=== PATIENT | male | born 1955 | race Caucasian/White ===

== ENCOUNTER 2025-02-13 20:57 | Inpatient (IN) | payer MEDICARE, SELFPAY ==
[2025-02-13 16:18] VITALS: BP 171/110
[2025-02-13 16:50] LABS: Hematocrit 45.4 % (39.0-52.0); Hemoglobin 15.4 g/dL (13.0-18.0); Mean Corp Hgb Conc. 33.9 g/dL (33.0-37.0); Mean Corpuscular Volume 90.6 fL (80.0-94.0); Nucleated Red Blood Cells % 0 % (-); Platelet Count 193 10^3/uL (130-400); Red Cell Dist. Width 13.1 % (11.5-14.5)
[2025-02-13 17:17] LABS: ALT (SGPT) 53 U/L (0-50); AST (SGOT) 72 U/L (17-59); Albumin 3.7 g/dl (3.5-5.0); Alkaline Phosphatase 125 U/L (38-126); Blood Urea Nitrogen 21 mg/dl (9-20); Calcium 9.1 mg/dl (8.4-10.2); Carbon Dioxide 20 mmol/L (22-30); Chloride 109 mmol/L (98-107); Glucose 305 mg/dl (70-99); Potassium 3.7 mmol/L (3.5-5.1); Sodium 139 mmol/L (135-145); Total Protein 6.8 g/dl (6.3-8.2); eGFR > 60.00
--- NOTE | 2025-02-13 19:47 | ED.GENMED ---
History of Present Illness
General
Chief Complaint: Skin Problem
Source: patient
Exam Limitations: none
Time Seen by Provider: 02/13/25 18:39
Nursing documentation reviewed up to this point in time: agreed with
History of Present Illness
History of Present Illness:
Patient to ED [facility] complaint of pain, swelling, heavy discharge from LLE wounds. Fouls smelling. He states he noticed wounds approx 2 mos ago and hs been treating on own. He reports he washes his legs in shower a few times/week. He leaves the same
sock on between showers. He denies fever/chills. Brought to ED by spouse for eval.
Past History
Past History
ED Past Medical History: HTN and NIDDM
Review of Systems
Review of Systems
Allergies reviewed?: Yes
All Other Systems: ROS reviewed and negative except as documented in HPI and ROS
Constitutional: Reports no symptoms
EENT: Reports no symptoms
Respiratory: Reports no symptoms
Cardiac: Reports no symptoms
ABD/GI: Reports no symptoms
: Reports no symptoms
Musculoskeletal: Reports other (Pain and swelling to LLE)
Skin: Reports other (3 large ulcerations LLE, foul smelling drainage. Erythema to LLE)
Neurological: Reports no symptoms
Psychiatric: Reports no symptoms
Phy Exam
General Physical Exam
General Presentation: moderate distress
General age: appears stated age
General Skin: warm and dry
General Habitus: normal
General Mental: alert
Cardiovascular Exam
Cardiovascular Exam: regular rate/rhythm
Pulmonary Exam
Pulmonary Exam: lungs clear and no respiratory distress
Neurological Exam
Neurological Exam: alert and oriented x3
Musculoskeletal Exam
Musculoskeletal Exam: full ROM, edema (+2BLE) and neuro vasc intact
Skin Exam
Skin Exam: other (3 large ulcerations present LLE. All three with foul smelling drainage. Cultures obtained. Redness and swelling to LLE)
Psychiatric Exam
Psychiatric Exam: normal mood/affect
Sepsis
Sepsis Screening
Sepsis Assessment: Sepsis Ruled Out
Sepsis Screen
Sepsis Screen: Sepsis Ruled Out
Date: 02/13/25
Time: 22:47
Course
Orders/Labs/Results
Orders:
Orders
02/13/25 Dinner
1800 calorie (15 carb) Diabetic
At Your Request: Full Participation
Does patient need a safe tray?: No
02/13/25 16:41
Complete Blood Count/With Diff Urgent
Comprehensive Metabolic Panel Urgent
Lactic Acid Routine
Blood Culture Urgent
ROSANNA Source: Blood/Venous
Specimen Description:
02/13/25 18:53
Foot, Left 3 View [CR Foot - Left Min 3 Views] Urgent
Comment:
Reason For Exam: cellulitis
Tib/Fib, Left 2 View [CR Leg Tibia/fibula Left 2 Vw] Urgent
Comment:
Reason For Exam: cellulitis
US Periph Venous LOWER Ext LT Urgent
Comment:
Reason For Exam: cellulitis
02/13/25 19:38
Wound Culture [Wound/Abscess/Other Culture] Urgent
ROSANNA Source: Leg
Specimen Description: Left
Date Specimen was Collected: 02/13/25
Time Specimen was Collected: 19:37
Comment: ag
Wound Culture [Wound/Abscess/Other Culture] Urgent
ROSANNA Source: Leg
Specimen Description: Left
Date Specimen was Collected: 02/13/25
Time Specimen was Collected: 19:38
Comment: calf
Wound Culture [Wound/Abscess/Other Culture] Urgent
ROSANNA Source: Leg
Specimen Description: Left
Date Specimen was Collected: 02/13/25
Time Specimen was Collected: 19:38
Comment: lateral lower leg
02/13/25 20:10
Vancomycin [Vancocin] 2,000 mg 0.9% Sodium Chloride 500 ml [Nss] 500 ml IV NOW
02/13/25 20:45
Admit/Transfer Patient As Directed
Co-Sign Provider:
Level of Care: Inpatient admission
Assign to:: Medical/Surgical
Physician / Group: Heydi
Diagnosis: cellulitis
Reason for Hospitalization: cellulitis
Expected length of stay greater than two midnights?: Yes
ELOS- Estimated Length of Stay in days: 2
I certify the patient meets the requirements for IP care: Yes
PRN Pain Medication Management As Directed
May give lesser potent ordered pain med per pt: Yes
preference::
Protocol:: Medication orders for pain may be administered in a
manner that supports deferring to patient preference
when the pt is:
- Requesting an ordered lesser potent pain medication.
Least to most potent pain medications are defined
as: acetaminophen < NSAID < tramadol < opioids
(morphine, oxycodone, hydromorphone).
- Requesting a lesser dose of the same medication IF
ORDERED.
- Requesting a less intrusive route of administration
if both routes are prescribed by the provider (PO <
IV).
02/13/25 20:46
Code Status As Directed
Resuscitation Status: Full Code
02/13/25 20:52
HydrALAZINE [Apresoline] 5 mg IV NOW STA
Oxycodone/Acetaminophen [Percocet 5/325] 1 tablet PO NOW STA
02/13/25 22:05
Acetaminophen [Tylenol] 650 mg PO Q4HPRN PRN
Bisacodyl [Dulcolax] 10 mg RECTAL [id number] PRN
Docusate W/Senna [Senokot-S] 1 tablet PO BIDPRN PRN
HYDROmorphone [Dilaudid] 0.5 mg IV Q4HPRN PRN
Insulin Glargine Lantus [Lantus] 10 units Subcutaneous Insulin Syringe [Syringe-Insulin] 0 unit SC HS
Ketorolac [Toradol] 10 mg IV Q6HPRN PRN
Ondansetron Injectable [Zofran] 4 mg IV Q6HPRN PRN
Oxycodone [Roxicodone] 5 mg PO Q4HPRN PRN
Polyethylene Glycol Powder [Miralax] 17 grams PO DAILYPRN PRN
VANCOMYCIN Pharmacy to Dose [VANCOCIN Pharmacy to Dose] 1 each Pharmacy To Prepare [Call Pharmacy To Prepare] 0 ml IV PER PROTOCOL
02/13/25 22:05
ECG [Electrocardiogram (*1)] Routine
Reason for Study: Hypertension, Benign
WOUND/OSTOMY CONSULT Routine
Reason for Consult: venostasis ulcers
Urinalysis Reflex To Culture Routine
Activity As Directed
Activity Level: With Assistance
Bedside Glucose Monitoring As Directed
Frequency: AC&HS
Vital Signs As Directed
Frequency: Per unit guidelines
Pulse Ox/spot Check [RESP] Routine
Quantity: 1
Rx Incentive Spirometry [RESP] Routine
Frequency: q1h while awake
DX Deep Vein Thrombosis Video Routine
02/14/25 06:00
Basic Metabolic Panel IN AM
Cardiovascular Evaluation IN AM
Complete Blood Count/No Diff IN AM
Hemoglobin A1c [Glycohemoglobin (HgbA1c)] IN AM
Magnesium IN AM
02/14/25 07:30
Insulin Aspart Corrective Low [Novolog Flexpen-Low Resistance] See Protocol SC AC
02/14/25 08:00
Aspirin Low Dose EC [Aspir Low (Enteric Coated)] 81 mg PO DAILY
Labetalol [Trandate] 100 mg PO BID
Lisinopril [Zestril] 5 mg PO DAILY
METFORMIN HCl [Glucophage] 500 mg PO BID@0800,1700
02/14/25 18:00
Enoxaparin Sodium [Lovenox] 40 mg SC QPM
Abnormal Lab Results
02/13/25
16:41
Absolute Monos (auto) 0.8 H 10^3/uL
(0.1-0.6)
Lymphocytes % 13.1 L %
(20.5-51.1)
Chloride 109 H mmol/L
(98-107)
Carbon Dioxide 20 L mmol/L
(22-30)
BUN 21 H mg/dl
(9-20)
Glucose 305 H mg/dl
(70-99)
AST 72 H U/L
(17-59)
ALT 53 H U/L
(0-50)
02/13/25 16:41
02/13/25 16:41
Vital Signs
Initial and Last Documented VS:
Initial Vital Signs
Pulse Resp BP Pulse Ox
102 20 171/110 96
02/13/25 16:18 02/13/25 16:18 02/13/25 16:18 02/13/25 16:18
Last Documented Vital Signs
Temp Pulse Resp BP Pulse Ox
99.5 F 108 18 155/100 96
02/13/25 22:15 02/13/25 22:15 02/13/25 22:15 02/13/25 22:15 02/13/25 22:15
*Pulse Oximetry
SaO2: 96
Oxygen Mode of Delivery: Room air
*Critical Care Note
Total Time (30-74mins, 75-104mins- exclusive of procedures): Not Applicable
Update Note
Update Note:
Patient to ED with complaint of pain to LLE. Reports swelling and increasing drainge to wounds on LLE> He is self treating 3 ulcerations on LLE. Cleans them with soap and water when he showers, covers with a sock. No fever/chills. Culture sent
of all 3 wounds. [facility] NIDDM. States he was not prescribed meds, treated with diet. He has not seen a provider in a few years however. He also has a history of HTN but stopped his meds 2 years ago when he retired. WIll admit to hospitalist for
cellulitis, infected nonhealing ulcers LLE. Blood and wound cultures are pending. He is afebrile. WBC normal.
ED Attending Note
-
Portions of this chart may have been created with voice recognition software.� Occasional wrong word or��sound alike� substitutions may have occurred due to the inherent limitations of voice recognition software.
Discharge Plan
Departure
Patient Disposition: Admit
Date of Disposition: 02/13/25
Time of Disposition: 19:57
Presentation/result/management discussed w/ accepting MD/DO: Hospitalist
Patient with high blood pressure during this ER visit?: No
Condition: Fair
Covid-19: Not Applicable
Discharge Problem:
Cellulitis of leg, Non-healing wound of left lower extremity
Interventions
Interventions:
*Risk Screen - Suicide Last Done: 02/13/25 19:52
*General Assessment Last Done: 02/13/25 19:52
*Neglect/Abuse Screening Last Done: 02/13/25 19:52
*ED- Fall Risk Assessment Last Done: 02/13/25 19:52
*Nursing Disposition Last Done: 02/13/25 22:01
ED-Skin Assessment Last Done: 02/13/25 19:52
Discharge Date and Time
Discharge Date/Time: 02/13/25 22:01
[2025-02-13 19:53] VITALS: BP 177/119; BMI 36.9
--- NOTE | 2025-02-13 20:29 | HPS.HSE ---
Family Physician
-
Family Physician: NOT KNOW UNKNOWN - PT DOES
Chief Complaint
-
Left lower extremity skin changes
History of Present Illness
This is a 69-year-old who endorses past medical history only of prior pulmonary embolism status post thrombolysis, states he has diet controlled elevated blood sugar but no diagnosis of diabetes presenting to the emergency department with worsening
lesions in the left lower extremity.
Patient stated to me that he has had bilateral lower extremity swelling intermittently for several years. Demonstrated that he started having cellulitis in his leg in 2020. Most recently he stated that he started having swelling about 6 weeks ago.
He reported onset of a saccular lesion in his lateral left lower extremity for several weeks. Then additional lesions developed in the anterior and posterior segments. He denies any injuries. He has been attempting to keep his leg elevated but
is now unable to do so due to the location of the lesion.
Patient stated that he has been taking her ibuprofen every 5 hours to control the pain and feels like this has also been controlling any kind of fever. He denies having chills. He has not had any nausea or vomiting.
In Emergency Department he was afebrile, hypertensive to 180/110, nontachycardic. White count was 8.8 hemoglobin and platelets were normal. Electrolytes showed a potassium of 3.7 but otherwise unremarkable. His glucose was elevated at 300.
X-ray of the tibia-fibula and foot shows no fracture. Did not see any foreign body. Obvious large ulcerations extending into the subcutaneous layer, and no gas noted.
Medical History
Past Medical History
Past Medical History: Reports Other
Additional Past Medical History:
History of pulmonary embolism status post thrombolysis and IVC filter, status post removal of filter
Diet controlled hyperglycemia
Hypertension
Loss to follow-up
Past Surgical History: Reports None
Social History
Tobacco: Non-smoker
Alcohol: Occasional
Drug: None
Personal: Partner
Living: With Family
Family History
Family History: Not pertinent
Allergies / Home Medications
Allergies reflects when Allergies were last updated in [facility].
Home Medications with original date entered in [facility]
Allergy/Medication List:
Allergies
Allergy/AdvReac Type Severity Reaction Status Date / Time
lactose Allergy lactose Verified 02/13/25 16:23
intolerant
Sulfa (Sulfonamide Allergy Unknown Verified 02/13/25 16:23
Antibiotics)
Home Medications
acetaminophen 325 mg tablet (Tylenol) 650 mg PO PRN PRN MILD PAIN 02/13/25
aspirin 81 mg tablet,delayed release 81 mg PO DAILY 02/13/25
magnesium oxide 200 mg PO DAILY 02/13/25
Review of Systems
-
History Source: Patient
Constitutional: Reports No Symptoms
EENT: Reports No Symptoms
Respiratory: Reports No Symptoms
Cardiac: Reports No Symptoms
Abdomen/GI: Reports No Symptoms
: Reports No Symptoms
Musculoskeletal: Reports No Symptoms
Skin: Reports Rash
Neurological: Reports No Symptoms
Endocrine: Reports No Symptoms
Hematologic/Lymphatic: Reports No Symptoms
Psych: Reports No Symptoms
Physical Exam
Vital Signs
Vital Signs
Pulse Resp BP Pulse Ox
95 18 177/119 95
02/13/25 19:53 02/13/25 19:53 02/13/25 19:53 02/13/25 19:53
Physical Exam
General: Well Developed, Well Nourished, Pain and Obese
HEENT: NormoCephalic, Moist mucous membranes and Atraumatic
Respiratory: Clear
Cardiac: S1/S2 and Regular Rhythm; No Murmur or Rub
GI: Soft, Non Tender and Normal Bowel Sounds; No Organomegaly
Rectal: Deferred by Provider
Musculoskeletal: No Clubbing, No Cyanosis, Edema, Left Lower Extremity and Edema, Right Lower Extremity
Skin: Rash (Well-circumscribed circular lesions in the left lower extremity x 3 largest self about 3 cm radius on the lateral aspect which is healing and 2 new ones on the anterior and posterior aspects. There is pedal edema erythema tenderness in
the left foot and leg)
Neuro: Nonfocal/grossly intact
Psych: Anxious
Laboratory Results
-
02/13/25 16:41
02/13/25 16:41
Laboratory Results
Lactic Acid 2.0 mmol/L (0.7-2.0) 02/13/25 16:41
Total Bilirubin 0.6 mg/dl (0.2-1.3) 02/13/25 16:41
AST 72 U/L (17-59) H 02/13/25 16:41
ALT 53 U/L (0-50) H 02/13/25 16:41
Alkaline Phosphatase 125 U/L (38-126) 02/13/25 16:41
Data Reviewed
-
Diagnostic Radiology: Image Personally Visualized and interpreted
Ultrasound: Image Personally Visualized and interpreted
Lab Data: Labs Reviewed by me
Old Records: Reviewed
Impression/Plan
-
IMPRESSION:
69-year-old presenting to the emergency department with worsening lower extremity swelling, erythema tenderness and pain. Found to have healing and nonhealing sacral ulcerations in the left lower extremity.
PLAN:
1. Cellulitis - Suspect cellulitis from either super-imposed wound infection. Large ulcerations with yellow base without current drainage. Suspect venostasis dermatitis, possible pyoderma. No deep tissue infection on xray. Possible vascular
insufficiency.
- admit to med/surg
- blood cultures
- vancomycin IV
- pain control
- wound care consult
- ID consultation
2. Hyperglycemia = untreated diabetes
- sliding scale insulin, lantus 10 hs
- metformin 500 bid
- check a1c, lipid panel
- check u/a
3. Uncontrolled HTN,
- given likely diabetes will start acei
- labetolol bid
- ecg, monitor for apnea
4. h/o PE s/p IVC filter and removal. Not on AC due to cost and non-compliance. Unclear if provoked PE in 2021
- LLE u/s showing non-occlusive thrombus of the within the femoral vein, popliteal vein and peroneal vein
- on aspirin, consider coumadin if agreeable and further hx can be obtained
- check coags, lovenox tx for now
DVT PPX - on lovenox tx
Code status - Full Code
[2025-02-13] MEDS: VANCOCIN 540 MG IV (20:57)
[2025-02-13] MEDS: PERCOCET 5/325 1 TABLET PO (20:57)
[2025-02-13] MEDS: APRESOLINE 5 MG IV (21:47)
[2025-02-13 22:15] VITALS: BP 155/100; BMI 35.9
[2025-02-13 22:17] LABS: Glucose - Point of Care 227 mg/dl (70-99)
--- NOTE | 2025-02-13 22:43 | PHA.VAN.IN ---
Assessment
- Assessment
Renal Function: Appears similar to baseline
AUC Dosing Plan
- Dosing Variables
Dosing Weight (kg): 101
Dosing CrCl (ml/min): 72
Vd coefficient (L/kg): 0.7
- Empiric Dosing
Initial / Loading Dose: 2000 mg given 02/13 @ 2000
Maintenance Regimen: 1250 mg Q12H 02/13 @ 0600
Estimated AUC (mcg*h/mL): 578
Estimated Peak (mcg*h/mL): 33
Estimated Trough (mcg/ml): 17
Estimated Half Life (H): 11
- Monitoring
No levels ordered at this time: Consider in next few days
Pharmacokinetics Vancomycin I
- -
Patient Age: 69
Patient Sex: Male
Vancomycin Day #: 1
Indication: Skin And Soft Tissue
Requesting Provider: Heydi
Pertinent Antimicrobial Allergies:
Sulfa allergy/unknown
Height / Weight:
Height 5 ft 6 in
Actual Weight 100.839 kg
Pertinent Past Medical History: BMI`36 Untreated DM
- Vital Signs / Lab Results
Temp Pulse Resp BP Pulse Ox
99.5 F 108 18 155/100 96
02/13/25 22:15 02/13/25 22:15 02/13/25 22:15 02/13/25 22:15 02/13/25 22:15
Lab Results - Hematology
02/13/25
16:41
WBC 8.8
Lab Results - Chemistry
02/13/25
16:41
BUN 21 H
Creatinine 1.1
Albumin 3.7
02/13/25
16:41
Lactic Acid 2.0
[2025-02-13] MEDS: ROXICODONE 5 MG PO (22:50)
[2025-02-13] MEDS: LOVENOX 100 MG SC (22:50)
[2025-02-13] MEDS: LANTUS 0.1 UNITS SC (22:51)
--- NOTE | 2025-02-14 00:05 | PTCARENOTE ---
Pt received from ED via stretcher. Ambulated to room independently w/o incident. AAOx3, pleasant. Admission and assessment completed. Oriented to surroundings and plan of care discussed. LLE w/multiple draining wounds, foul smelling. Wounds
dressed until evaluated by WOC RN. Instructed to elevate, verbalizes understanding. Medicated for pain (refer to MAR) + effect. #20 RH INT flushed and patent. Call brandi w/in reach.
[2025-02-14 00:09] VITALS: BP 162/104
[2025-02-14 00:27] LABS: INR 1.04; PT 14.0 Sec (11.4-14.6)
[2025-02-14] MEDS: TRANDATE 100 MG PO ×3 (00:31→21:03)
[2025-02-14 00:34] LABS: APTT 34.4 Sec (23.4-35.0)
[2025-02-14 03:09] VITALS: BP 133/84
[2025-02-14] MEDS: TYLENOL 650 MG PO (03:09)
[2025-02-14] MEDS: ROXICODONE 5 MG PO (03:09)
[2025-02-14 03:48] LABS: Urine Character Clear (Clear)
[2025-02-14 05:05] LABS: Urine Squamous Cell >30 /LPF (Few)
[2025-02-14] MEDS: VANCOCIN 275 MG IV ×2 (06:08→17:26)
[2025-02-14 06:45] LABS: Hematocrit 41.7 % (39.0-52.0); Hemoglobin 14.0 g/dL (13.0-18.0); Mean Corp Hgb Conc. 33.6 g/dL (33.0-37.0); Mean Corpuscular Volume 91.2 fL (80.0-94.0); Platelet Count 188 10^3/uL (130-400); Red Cell Dist. Width 13.2 % (11.5-14.5)
[2025-02-14 06:55] LABS: INR 1.07; PT 14.2 Sec (11.4-14.6)
[2025-02-14 06:56] LABS: APTT 33.3 Sec (23.4-35.0)
[2025-02-14 07:10] LABS: Blood Urea Nitrogen 18 mg/dl (9-20); Calcium 8.6 mg/dl (8.4-10.2); Carbon Dioxide 21 mmol/L (22-30); Chloride 109 mmol/L (98-107); Estimated Creatinine Clearance 79 ml/min; Glucose 274 mg/dl (70-99); HDL Cholesterol 20 mg/dl; LDL Cholesterol, Calculated 117 mg/dl; Magnesium 2.1 mg/dl (1.6-2.3); Potassium 3.7 mmol/L (3.5-5.1); Sodium 138 mmol/L (135-145); Very Low Density Lipoprotein 57 mg/dl (0-30); eGFR > 60.00
[2025-02-14 08:05] LABS: Glucose - Point of Care 224 mg/dl (70-99)
[2025-02-14 08:06] VITALS: BP 138/89
[2025-02-14 08:49] LABS: Glycohemoglobin (HgbA1c) 10.5 % (4.0-5.6)
[2025-02-14] MEDS: ZESTRIL 5 MG PO (08:58)
[2025-02-14] MEDS: NOVOLOG FLEXPEN-LOW RESISTANCE 2 UNITS SC (08:58)
[2025-02-14] MEDS: ASPIR LOW (ENTERIC COATED) 81 MG PO (08:58)
--- NOTE | 2025-02-14 10:31 | PHA.VAN.FU ---
Vancomycin Assessment / Plan
- Assessment
Renal Function: SCR Decreasing (1.1->1.0 (unknown baseline))
WBC's are: WNL
In the past 24 hrs, patient has been: Febrile (100.6 - 02/14 03:09)
- Dosing Plan
Continue: vancomycin 1250 mg q12h - first restrepo 02/14 0600 after 2gm load 02/13 2100
- Monitoring Plan
No level(s) ordered at this time: consider levels after 4th maint dose 02/15 1800 dose
- Follow Up
Pharmacy will continue to follow.
Vancomycin Follow UP
- -
Patient Age: 69
Patient Sex: Male
Vancomycin Day #: 2
Indication: Skin And Soft Tissue
Requesting Provider: Heydi
Pertinent Antimicrobial Allergies:
Sulfa allergy/unknown
Height / Weight:
Height 5 ft 6 in
Actual Weight 100.839 kg
Pertinent Past Medical History: BMI`36 Untreated DM
- Vital Signs / Lab Results
Temp Pulse Resp BP Pulse Ox
98.0 F 88 21 138/89 96
02/14/25 08:06 02/14/25 08:06 02/14/25 08:06 02/14/25 08:06 02/14/25 08:06
Lab Results - Hematology
02/13/25 02/14/25
16:41 06:16
WBC 8.8 10.0
Lab Results - Chemistry
02/13/25 02/14/25
16:41 06:16
BUN 21 H 18
Creatinine 1.1 1.0
Estimated Creat Clear 79
Albumin 3.7
02/13/25
16:41
Lactic Acid 2.0
Lab Results - Urine
02/14/25
03:15
Urine Nitrite (Reflex) Negative
Leukocyte Esterase Rfl Negative
Ur Squamous Epith Cells >30
--- NOTE | 2025-02-14 11:02 | WOUNDNOTE ---
LEFT LATERAL/POSTERIOR LOWER LEG
--- NOTE | 2025-02-14 11:03 | WOUNDNOTE ---
LEFT ANTERIOR LOWER LEG
--- NOTE | 2025-02-14 11:03 | WOUNDNOTE ---
LEFT LATERAL LOWER LEG
--- NOTE | 2025-02-14 11:04 | WOUNDNOTE ---
RIGHT LATERAL LOWER LEG
--- NOTE | 2025-02-14 11:05 | WOUNDNOTE ---
BILATERAL LOWER EXTREMITIES
--- NOTE | 2025-02-14 11:06 | WOUNDNOTE ---
LEFT LATERAL LOWER LEG
--- NOTE | 2025-02-14 11:07 | WOUNDNOTE ---
LEFT LATERAL/POSTERIOR LOWER LEG
--- NOTE | 2025-02-14 11:07 | WOUNDNOTE ---
LEFT LOWER LEG
--- NOTE | 2025-02-14 11:07 | WOUNDNOTE ---
LEFT GREAT TOE
--- NOTE | 2025-02-14 11:10 | W.PN.HOSP.TC ---
Today's Communication/Plan
-
see A/P
Assessment / Plan
Assessment / Plan
HPI: 69-year-old with past medical history only of prior pulmonary embolism status post thrombolysis, diet controlled elevated blood sugar but no diagnosis of diabetes; p/w worsening lesions in the left lower extremity.
Patient stated that he has had bilateral lower extremity swelling intermittently for several years. He started having cellulitis in his leg in 2020.
He reported onset of a saccular lesion in his lateral left lower extremity for several weeks. Then additional lesions developed in the anterior and posterior segments. He denies any injuries. He has been attempting to keep his leg elevated but is
now unable to do so due to the location of the lesion.
Patient stated that he has been taking ibuprofen every 5 hours to control the pain and feels like this has also been controlling fever. He denies having chills. He has not had any nausea or vomiting.
X-ray of the tibia-fibula and foot shows no fracture. Did not see any foreign body. Obvious large ulcerations extending into the subcutaneous layer, and no gas noted.
A/P
# LLE Cellulitis with Large ulcerations without drainage.
# Suspect venostasis dermatitis, possible pyoderma.
No deep tissue infection on xray, noted large ulcerations extending into the subcutaneous layer, no gas noted.
Follow blood culture, wound culture
Started IV vancomycin, cont
ID consult
wound care consult
pain control
# Hyperglycemia due to untreated diabetes
A1c 10.5%
started Lantus 10 units HS
Cont sliding scale insulin,
Pt declined metformin 500 bid due to previous severe GI S/E
# Hyperlipidemia
LDL 117
start Lipitor 40 mg
# Mild transaminitis, suspect reactive
Follow LFT
# Uncontrolled HTN
# HTN urgency
Started Labetalol 100 mg bid and lisinopril 5 mg
Monitor BP
# h/o PE s/p IVC filter and removal.
# LLE DVT
Not on AC due to cost/non-compliance. Unclear if provoked PE in 2019
LLE u/s showed non-occlusive thrombus of the within the femoral vein, popliteal vein and peroneal vein
on aspirin.
CM to check cost of Eliquis
Cont therapeutic Lovenox for now
DVT PPX - therapeutic Lovenox for now
Code status - Full Code
DW at bedside
total time spent 51 min
Anticipated Discharge: > 48 hours
Subjective/Interval History
-
Date of Service: February 14, 2025
Objective Data
-
Labs:
Laboratory Results
02/14/25 02/14/25
00:00 06:16
WBC 10.0
Hgb 14.0
Hct 41.7
Plt Count 188
PT 14.0 14.2
INR 1.04 1.07
APTT 34.4 33.3
Sodium 138
Potassium 3.7
Chloride 109 H
Carbon Dioxide 21 L
BUN 18
Creatinine 1.0
Glucose 274 H
Calcium 8.6
Vital Signs:
Vital Signs
Temp Pulse Resp BP Pulse Ox
36.7 C 88 21 138/89 96
02/14/25 08:06 02/14/25 08:06 02/14/25 08:06 02/14/25 08:06 02/14/25 08:06
I&O
02/13/25 02/14/25 02/15/25
06:59 06:59 06:59
Intake Total 755 / 755
Output Total 400 / 400
Balance 355 / 355
Review of Systems
-
History Source: Patient
Skin: Reports Other (LLE ulcers)
Physical Exam
-
General: Well Developed, Well Nourished, No Apparent Distress, Comfortable, Conversant and Obese; Negative Respiratory Distress
HEENT: Normocephalic, Atraumatic, Nose Appears Normal and Ears Appear Normal; Negative Oxygen
Respiratory: Clear to Auscultation and Non Labored Respirations; Negative Accessory Resp Muscle Use
Cardiac: Regular Rhythm and S1/S2
GI: Soft, Nontender, Nondistended and Normal Bowel Sounds
Skin: Other (see wound care note)
Neuro: Awake, Alert, Oriented and AO x 3
Psych: Calm and Intact Judgement/Insight
Data Reviewed
-
Ultrasound: Report Reviewed by me
Labs: Labs Reviewed by me, Discussed with Patient and Discussed with Family
[2025-02-14 11:20] LABS: Glucose - Point of Care 335 mg/dl (70-99)
--- NOTE | 2025-02-14 11:26 | WOUNDNOTE ---
[facility] RN note: Patient admitted with cellulitis of L leg.
See H&P for complete history.
PMH: ED Past Medical History: Obesity, HTN and NIDDM
Wound Location and type/assessment: Patient admitted with: Foul smelling clusters of venous leg ulcers to L leg. Roque eschar mixed with ball slough at base of most wounds, circumferentially around legs. Foot with dried up skin on toes, redness and
swelling. + pulses audible on L leg with Doppler. R leg pedal pulse palpable, few scabs on R medial lower leg. Heels are intact, skin on legs dry. Patient turned self to side, sacrum intact. Vascular ultrasound showed + clots of L leg, x ray
negative for osteomyelitis. Patient states he uses compression stockings at home.
Appetite: Good.
Pressure redistribution devices in place: On Accumax, independent in turning and BR. Pillow under calves.
Plan: Will order Dakin's to start tomorrow, WTD daily and prn odor. Will hold off on compression for now, just leg elevation. Encouraged patient to elevate legs when sitting in chair. Teaching done with patient and family member on wound care and
pressure ulcer prevention measures, states they understand.
Will confirm orders with hospitalist and updated nurse Gen.
Updated care plan and will follow as needed.
Note to case management of equipment requested for discharge: VN
Recommend follow up at wound care center upon discharge.
[2025-02-14] MEDS: LOVENOX 100 MG SC ×2 (11:46→22:53)
[2025-02-14] MEDS: DILAUDID 0.5 MG IV ×2 (11:46→21:06)
[2025-02-14] MEDS: NOVOLOG FLEXPEN-LOW RESISTANCE 3 UNITS SC (11:47)
--- NOTE | 2025-02-14 12:16 | CM ---
Addendum entered by Sejal Medley 02/14/25 14:12:
CM consult completed for Eliquis 5mg BID
called [facility] & spoke with Tina $605/mo with discount card(good rx)
Xeralto 20mg daily $597/mo with discount card
tt hospitalist
Original Note:
Patient seen at bedside
IA completed
dx: cellulitis
PMH: pulmonary embolism status post thrombolysis
Lives with in a 2 story home, 3 steps to enter, 9 steps to bedroom/bath
PLOF: independent
DME: Crutches
PT to eval
Denies VN/Rehab
Denies insecurities
PCP: Leland Milan, [facility] [phone]
Pharmacy: [facility] , [place]
PLAN: Await PT eval, CM to continue to follow for needs
[2025-02-14 15:05] VITALS: BP 121/75
[2025-02-14 15:50] VITALS: BP 114/72; PULSE 90; O2SAT 93
[2025-02-14 16:46] LABS: Glucose - Point of Care 195 mg/dl (70-99)
--- NOTE | 2025-02-14 16:58 | CON.ID ---
Consultation
-
Date/Time Consultation Requested: January
Date/Time Consultation Performed: January
Requesting Provider: Dr Saira Pickens
Performing Provider: Lanny Andrews MD
Reason for Consultation: Cellulitis left leg
Chief Complaint / Past History
Chief Complaint
Pain and swelling in the left lower leg and foot which have worsened over the last 2 months and he currently is without fever or chills
History of Present Illness
.The patient has a history of worsening findings in his left lower leg which are similar to those that he had in his right leg a while back. Despite his care at home with massage he has noted worsening pain, swelling and heavy discharge with bad
odor worsening over the last few weeks. He cares for his legs by washing them in a shower a few times a week but each time he washes off the drainage it comes back. He notes that he does not change his socks between showers
Past History
Past Medical History: HTN and NIDDM
Additional Past Medical History:
The patient states that he had a pulmonary blood clot in the past, and had cellulitis in his right leg and has obesity with BMI currently 35.9
Allergy History:
lactose Allergy (Verified 02/13/25 16:23)
lactose intolerant
Sulfa (Sulfonamide Antibiotics) Allergy (Verified 02/13/25 16:23)
Unknown
Medications Reviewed: Yes
Current Antibiotics:
Vancomycin
Social History
Tobacco: Non-Smoker
Alcohol: Occasional
Drug: None
Personal: Partner
Living: With Family
Family History
Family History: Not Pertinent
Review of Systems
Review of Systems
All systems: All other systems were reviewed and were negative
Vital Signs
Temp Pulse Resp BP Pulse Ox
98.9 F 94 16 121/75 94
02/14/25 15:05 02/14/25 15:05 02/14/25 15:05 02/14/25 15:05 02/14/25 15:05
Physical Exam
Physical Exam
Constitutional: No Acute Distress, Well Developed, Comfortable and Obese
Head: Normocephalic
Eyes: Pupils Equal, Pupils Round, No Conjunctival Hemorrhage and Sclera Anicteric
Pharynx: Benign
Oral: No Thrush and No Ulcers
Cardiovascular: Regular Rate and Peripheral Edema
Pulmonary: Other (Clear, diminished at both bases)
Gastrointestinal: Soft, Non Tender and Normal Bowel Sounds (Central adiposity)
Genito-Urinary: Ragland and Hematuria
Extremities: Edema and Erythema
Skin: Warm and Dry (Erythema left lower leg,Scaling of skin on bilateral lower extremities)
Wound: Other (Cellulitic type changes with dressing left lower leg)
Neurological: Awake, Alert and Oriented
Psychological: Calm
Lines: PIV
Lab / Diagnostic Study Results
02/14/25 06:16
02/14/25 06:16
Abs Immat Gran (auto) 0.0 10^3/uL (0-0.05) 02/13/25 16:41
Absolute Neuts (auto) 6.4 10^3/uL (1.4-6.5) 02/13/25 16:41
Absolute Lymphs (auto) 1.2 10^3/uL (1.2-3.4) 02/13/25 16:41
Absolute Monos (auto) 0.8 10^3/uL (0.1-0.6) H 02/13/25 16:41
Absolute Basos (auto) 0.0 10^3/uL (0-0.2) 02/13/25 16:41
Immature Gran % 0.2 % (0-0.5) 02/13/25 16:41
Neutrophils % 73.6 % (42.2-75.2) 02/13/25 16:41
Lymphocytes % 13.1 % (20.5-51.1) L 02/13/25 16:41
Monocytes % 9.2 % (1.7-9.3) 02/13/25 16:41
Eosinophils % 3.6 % (0-6) 02/13/25 16:41
Basophils % 0.3 % (0-2) 02/13/25 16:41
ESR 20 mm/hour (0-20) 02/14/25 06:16
PT 14.2 Sec (11.4-14.6) 02/14/25 06:16
INR 1.07 02/14/25 06:16
Lactic Acid 2.0 mmol/L (0.7-2.0) 02/13/25 16:41
Ur Squamous Epith Cells >30 /LPF (Few) 02/14/25 03:15
Microbiology Results
Micro:
02/13/25 16:41 Blood Culture - Preliminary
Blood/Venous No Growth in 24 hours- Final report to follow
02/13/25 19:38 Wound Culture - Pending
Leg - Left Gram Stain - Preliminary
02/13/25 19:38 Wound Culture - Pending
Leg - Left Gram Stain - Preliminary
02/13/25 19:38 Wound Culture - Pending
Leg - Left Gram Stain - Preliminary
02/14/25 00:00 MRSA Screen - Pending
Nose
Assessment / Plan
1. Bilateral cellulitis lower legs with acute findings left lower leg with past history of cellulitis on the right with scaling skin but without acute findings at this time
2. Peripheral vascular disease with current ultrasound revealing nonocclusive clotting of the femoral, popliteal, and peroneal vessels in the setting of lymphadenopathy
3. Patient currently receiving vancomycin with careful monitoring of renal function and vancomycin trough
4. Targeted antibiotic to be provided upon results of pending cultures and MRSA screen
Thank you for calling infectious disease consultation. The ID team will continue to follow with you
Care Review
Plan reviewed with: Other (Patient was discussed with family at bedside and patient's questions and concerns were addressed)
Total Time Spent with Patient (in minutes): 55
[2025-02-14] MEDS: LIPITOR 40 MG PO (17:27)
[2025-02-14] MEDS: NOVOLOG FLEXPEN-LOW RESISTANCE 1 UNITS SC (17:27)
[2025-02-14 21:21] LABS: Glucose - Point of Care 233 mg/dl (70-99)
[2025-02-14] MEDS: LANTUS 0.1 UNITS SC (22:53)
[2025-02-14 23:30] VITALS: BP 115/67
[2025-02-15] MEDS: DILAUDID 0.5 MG IV (01:06)
[2025-02-15] MEDS: VANCOCIN 275 MG IV ×2 (06:00→17:57)
[2025-02-15 07:03] LABS: Hematocrit 42.5 % (39.0-52.0); Hemoglobin 13.9 g/dL (13.0-18.0); Mean Corp Hgb Conc. 32.7 g/dL (33.0-37.0); Mean Corpuscular Volume 92.8 fL (80.0-94.0); Platelet Count 212 10^3/uL (130-400); Red Cell Dist. Width 13.2 % (11.5-14.5)
[2025-02-15] MEDS: ASPIR LOW (ENTERIC COATED) 81 MG PO (07:47)
[2025-02-15 07:48] VITALS: BP 154/99
[2025-02-15] MEDS: TRANDATE 100 MG PO ×2 (07:48→19:59)
[2025-02-15] MEDS: ZESTRIL 5 MG PO (07:49)
[2025-02-15 07:52] LABS: Glucose - Point of Care 166 mg/dl (70-99)
[2025-02-15] MEDS: NOVOLOG FLEXPEN-LOW RESISTANCE 1 UNITS SC ×2 (07:53→18:00)
[2025-02-15] MEDS: ROXICODONE 5 MG PO ×4 (08:00→23:06)
[2025-02-15 08:13] LABS: ALT (SGPT) 41 U/L (0-50); AST (SGOT) 43 U/L (17-59); Albumin 3.4 g/dl (3.5-5.0); Alkaline Phosphatase 79 U/L (38-126); Blood Urea Nitrogen 19 mg/dl (9-20); Calcium 9.1 mg/dl (8.4-10.2); Carbon Dioxide 24 mmol/L (22-30); Chloride 108 mmol/L (98-107); Estimated Creatinine Clearance 79 ml/min; Glucose 178 mg/dl (70-99); Magnesium 2.2 mg/dl (1.6-2.3); Potassium 3.9 mmol/L (3.5-5.1); Sodium 138 mmol/L (135-145); Total Protein 6.4 g/dl (6.3-8.2); eGFR > 60.00
--- NOTE | 2025-02-15 08:27 | PHA.VAN.FU ---
Vancomycin Assessment / Plan
- Assessment
Renal Function: Stable
WBC's are: WNL
- Dosing Plan
Continue: Vanc 1250mg Q12H
- Monitoring Plan
Peak Level: 02/15 21:30
Trough Level: 02/16 05:30
Monitoring Comments: levels to be drawn after 4th maintenance dose
- Follow Up
Pharmacy will continue to follow.
Vancomycin Follow UP
- -
Patient Age: 69
Patient Sex: Male
Vancomycin Day #: 3
Indication: Skin And Soft Tissue
Requesting Provider: Dr. Soliz / Juliana
Pertinent Antimicrobial Allergies:
Sulfa allergy/unknown
Height / Weight:
Height 5 ft 6 in
Actual Weight 100.839 kg
Pertinent Past Medical History: BMI~36 Untreated DM
- Vital Signs / Lab Results
Temp Pulse Resp BP Pulse Ox
99.1 F 100 16 154/99 93
02/15/25 07:48 02/15/25 07:49 02/15/25 07:48 02/15/25 07:49 02/15/25 07:48
Lab Results - Hematology
02/13/25 02/14/25 02/15/25
16:41 06:16 06:23
WBC 8.8 10.0 9.7
Lab Results - Chemistry
02/13/25 02/14/25 02/15/25
16:41 06:16 06:23
BUN 21 H 18 19
Creatinine 1.1 1.0 1.0
Estimated Creat Clear 79 79
Albumin 3.7 3.4 L
02/13/25
16:41
Lactic Acid 2.0
Microbiology Results
02/13/25 16:41 Blood Culture - Preliminary
Blood/Venous No Growth in 24 hours- Final report to follow
02/13/25 19:38 Gram Stain - Preliminary
Leg - Left
02/13/25 19:38 Gram Stain - Preliminary
Leg - Left
02/13/25 19:38 Gram Stain - Preliminary
Leg - Left
--- NOTE | 2025-02-15 09:41 | PN.CDI ---
CDI
- -
CDI:
Physician Documentation Request
Admit Date: 02/13/25 20:57
Dear Doctor Nelia,
Please review the following and provide your response in the progress notes.
Clinical Indicators:
- Patient admit for LLE cellulitis
- 02/14 PN 'Hyperglycemia due to untreated diabetes'
- 'A1c 10.5%'
- 02/14 ID 'Peripheral vascular disease with current ultrasound revealing nonocclusive clotting of the femoral, popliteal, and peroneal vessels'
Please clarify the relationship between these conditions:
Yes, _LLE Celluliitis__ is related to/associated with/due to _untreated diabetes__
No, _LLE Celluliitis__ is not related to/associated with/due to _untreated diabetes_ but it is due to . (Please specify)
Unable to determine
Use of terms such as suspected, likely, concern for, or probable (associated with a specific diagnosis that is being evaluated, monitored, or treated as if it exists) are acceptable and can be coded in the inpatient setting, when documented at the
time of discharge.
Thank you,
Otis Avery RN
CDI Specialist
Please use your independent medical judgment in providing your response.
--- NOTE | 2025-02-15 10:03 | PN.CDI ---
CDI
- -
CDI:
Physician Documentation Request
Admit Date: 02/13/25 20:57
Dear Doctor Nelia,
Please review the following and provide your response in the progress notes.
Clinical Indicators:
The diagnosis of bifascicular block was included in the signed 02/13 EKG
- 02/13 EKG 'bifascicular block'
- Right bundle branch block
- Left anterior fascicular block
Please indicate in your progress notes if you are in agreement that the above diagnosis is valid for this patient:
____ - Bifascicular block is a valid diagnosis (Please include it in your progress notes)
____ - Bifascicular block is not a valid diagnosis for this patient
____ - Bifascicular block is not yet confirmed but remains a suspected condition
____ - Other (please specify)
Use of terms such as suspected, likely, concern for, or probable are acceptable for a diagnosis that is being evaluated, monitored or treated as if it exists and can be coded in the inpatient setting, when documented at the time of discharge.
Thank you,
Otis Avery RN
CDI Specialist
Please use your independent medical judgment in providing your response.
[2025-02-15] MEDS: DAKIN'S SOLUTION 0.125% 1/4 STRENGTH 473 ML TOPICAL (10:21)
--- NOTE | 2025-02-15 10:35 | W.PN.HOSP.TC ---
Addendum entered and electronically signed by Saira Pickens MD 02/15/25 11:06:
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
# LLE Cellulitis is related to untreated diabetes
Original Note:
Today's Communication/Plan
-
see A/P
Assessment / Plan
Assessment / Plan
HPI: 69-year-old with past medical history only of prior pulmonary embolism status post thrombolysis, diet controlled elevated blood sugar but no diagnosis of diabetes; p/w worsening lesions in the left lower extremity.
Patient stated that he has had bilateral lower extremity swelling intermittently for several years. He started having cellulitis in his leg in 2020.
He reported onset of a saccular lesion in his lateral left lower extremity for several weeks. Then additional lesions developed in the anterior and posterior segments. He denies any injuries. He has been attempting to keep his leg elevated but is
now unable to do so due to the location of the lesion.
Patient stated that he has been taking ibuprofen every 5 hours to control the pain and feels like this has also been controlling fever. He denies having chills. He has not had any nausea or vomiting.
X-ray of the tibia-fibula and foot shows no fracture. Did not see any foreign body. Obvious large ulcerations extending into the subcutaneous layer, and no gas noted.
A/P
# LLE Cellulitis with Large ulcerations without drainage.
# Suspect venostasis dermatitis, possible pyoderma.
No deep tissue infection on xray, noted large ulcerations extending into the subcutaneous layer, no gas noted.
Follow wound culture
blood culture negative,
Started IV vancomycin, cont
ID on board
wound care on board
pain control
# Hyperglycemia due to untreated diabetes
A1c 10.5%
started Lantus 10 units HS, cont
Add aspart 3 units AC
Cont sliding scale insulin,
Pt declined metformin 500 bid due to previous severe GI S/E
DM DREDGE MATE CS for insulin education/administration and BG monitor education
# Hyperlipidemia
LDL 117
started Lipitor 40 mg
# Mild transaminitis, suspect reactive, resolved
# Uncontrolled HTN
# HTN urgency
Started Labetalol 100 mg bid and lisinopril 5 mg
Monitor BP
# h/o PE s/p IVC filter and removal.
# LLE DVT
Not on AC due to cost/non-compliance. Unclear if provoked PE in 2019
LLE u/s showed non-occlusive thrombus of the within the femoral vein, popliteal vein and peroneal vein
on aspirin.
Cost of Eliquis and Xarelto both at around 600 dollar per month, which pt cannot afford
Cont therapeutic Lovenox for now
Heme CS for OAC recc , most likey will start pt on Coumadin
DVT PPX - therapeutic Lovenox for now
Code status - Full Code
total time 51 min
Anticipated Discharge: > 48 hours
Subjective/Interval History
-
Date of Service: February 15, 2025
Objective Data
-
Labs:
Laboratory Results
02/15/25
06:23
WBC 9.7
Hgb 13.9
Hct 42.5
Plt Count 212
Sodium 138
Potassium 3.9
Chloride 108 H
Carbon Dioxide 24
BUN 19
Creatinine 1.0
Glucose 178 H
Calcium 9.1
Total Bilirubin 1.0
AST 43
ALT 41
Alkaline Phosphatase 79
Vital Signs:
Vital Signs
Temp Pulse Resp BP Pulse Ox
37.3 C 100 16 154/99 93
02/15/25 07:48 02/15/25 07:49 02/15/25 07:48 02/15/25 07:49 02/15/25 07:48
I&O
02/14/25 02/15/25 02/16/25
06:59 06:59 06:59
Intake Total 755 / 755 755 / 755
Output Total 400 / 400
Balance 355 / 355 / 75
Review of Systems
-
History Source: Patient
Skin: Reports Other (LLE ulcers)
Physical Exam
-
General: Well Developed, Well Nourished, No Apparent Distress, Comfortable, Conversant and Obese; Negative Respiratory Distress
HEENT: Normocephalic, Atraumatic, Nose Appears Normal and Ears Appear Normal; Negative Oxygen
Respiratory: Clear to Auscultation and Non Labored Respirations; Negative Accessory Resp Muscle Use
Cardiac: Regular Rhythm and S1/S2
GI: Soft, Nontender, Nondistended and Normal Bowel Sounds
Skin: Ulcers (see wound care note) and Other (see wound care note)
Neuro: Awake, Alert, Oriented and AO x 3
Psych: Calm and Intact Judgement/Insight
Data Reviewed
-
Ultrasound: Report Reviewed by me
Labs: Labs Reviewed by me, Discussed with Patient and Discussed with Family
[2025-02-15 10:59] LABS: Glucose - Point of Care 246 mg/dl (70-99)
--- NOTE | 2025-02-15 11:37 | PN.DE.MGMTRT ---
Insulin Management
- -
02/15/2025 Diabetes Management Consult
Patient admitted 02/13 with pain swelling and discharge from multiple wounds LLg. [facility] HTN, diabetes, pulmonary embolism, bilateral leg swelling for several years. Prior to admission was taking no medication for diabetes. A1C 10.5%, cr 1, eGFR >
60.
Patient is awake alert and oriented able to discuss diabetes care. States: 'family history of diabetes so I tried to watch what I eat'. States his primary doctor started him on metformin, years back, but it did not agree with him. He admits he
has not been to a doctor in over a year.
Glucose on admission 305.
02/14 glucose range 195 to 335. Patient received 10 units lantus @ HS with low corrective insulin.
02/15 Patient states he does not have prescription coverage. Explained that in this situation best to start 70/30 BID as it would be a more reasonable elizondo at [facility]. He is agreeable.
Will start 8 units 70/30 novolog with dinner with low corrective.
Recommended [employer] meter as test strips will also be more affordable.
Patient states CM mentioned working on getting prescription coverage.
Discussed with nurse.
Will follow
Diabetes History
- -
Type of Diabetes: 2 requiring insulin
Pre-Admission Diabetes Regimen
02/15/25
06:23
Creatinine 1.0
Lab Results
Hemoglobin A1c 10.5 % (4.0-5.6) H 02/14/25 06:16
Insulin Pump Settings
IP Diabetes Regimen
02/14/25 02/14/25 02/15/25
16:45 21:20 06:23
Glucose 178 H
POC Glucose 195 H 233 H
02/15/25 02/15/25
07:51 10:55
Glucose
POC Glucose 166 H 246 H
Patient Education
[2025-02-15] MEDS: NOVOLOG FLEXPEN-LOW RESISTANCE 2 UNITS SC (11:55)
[2025-02-15] MEDS: NOVOLOG FLEXPEN 3 UNITS SC (11:56)
[2025-02-15] MEDS: LOVENOX 100 MG SC ×2 (12:02→23:05)
[2025-02-15 15:27] VITALS: BP 118/72
--- NOTE | 2025-02-15 15:50 | PTCARENOTE ---
02/15/2025 DIABETES EDUCATION CONSULT
I met with Mr. Knutson and significant other to review diabetes management. He previously was controlling glucose through diet, current HbA1c is 10.5%.
I educated on physiology of T2D, organ damage, managing with medications, monitoring BG, nutrition, activity, sleep and managing stress. I reinforced signs of hyperglycemia, hypoglycemia and hypoglycemia protocol; BS parameters and recommended HbA1c
goals, glucometer and CGM instructions, glucose tracker, medic alert bracelet and outpatient DSME program. Written material provided.
I educated and reviewed using [employer] glucometer, member acknowledged understanding with a self demonstration of checking BS. BS at 1PM was 245 mg/dL. Provided her with a [employer] Next sample kit. Referred patient to [facility] for [facility] testing
supplies as he does not currently have prescription coverage.
I educated and demonstrated on insulin injection technique, timing, and storage. Discussed 70/30 insulin, it's onset/peak/duration. Discussed normal target glucose ranges and a monitoring and insulin injection schedule 30 minutes before each meal
with 70/30, and preprandial AM and/or bedtime as recommended by MD.
Encouraged patient to follow up with his PCP for post d/c appointment and to monitor medication and blood glucose levels. Provided list of endocrinologists if desired, to contact insurance company to verify in network status. Patient verbalized
understanding.
--- NOTE | 2025-02-15 16:01 | CM ---
Patient seen at bedside
PT rec Home Health
Options reviewed - prefer [facility]
Notified [facility] liaison - referral to be added
PLAN: Home with [facility]
--- NOTE | 2025-02-15 16:23 | W.PN.ID1 ---
Date of Service
Date of Service: February 15, 2025
Today's Communication
Await results of microbiology cultures for targeted antibiotic
Assessment / Plan
1. Bilateral cellulitis lower legs with acute findings left lower leg with past history of cellulitis on the right with scaling skin but without acute findings at this time
2. Peripheral vascular disease with current ultrasound revealing nonocclusive clotting of the femoral, popliteal, and peroneal vessels in the setting of lymphadenopathy
3. Patient currently receiving vancomycin with careful monitoring of renal function and vancomycin trough in setting of positive MRSA nares screen
4. Targeted antibiotic to be provided upon results of pending cultures
The ID team will continue to follow with you
Chief Complaint
-: Cellulitis (with decreased discomfort, erythema,swelling left lower leg)
Subjective / Review of Systems
Review of Systems: No Fever, No Chills, No Headache, No Pharyngitis, Swollen Lymph Nodes (no swollen lymph nodes), No Swollen Lymph Nodes, No Cough, No Sputum Production, No Chest Pain, No Palpitations, No Abdominal Pain, No Nausea, No Vomiting, No
Diarrhea, No Dysuria and Skin Rash (associated with cellulitis improving slowly)
Vital Signs / Physical Exam
Vital Signs
Vital Signs
Temp Pulse Resp BP Pulse Ox
99.1 F 90 18 118/72 94
02/15/25 15:27 02/15/25 15:27 02/15/25 15:27 02/15/25 15:27 02/15/25 15:27
Physical Exam
Constitutional: No Acute Distress, Well Developed, Comfortable, Chronically Ill, Non-toxic and Obese
Head: Normocephalic
Eyes: Pupils Equal, Pupils Round, No Conjunctival Hemorrhage and Sclera Anicteric
Oropharyngeal: Benign
Cardiovascular: Regular Rate
Pulmonary: Clear and Non Labored
Gastrointestinal: Soft, Non Tender and Non Distended (central adiposity)
Extremities: Edema, Erythema, Calf Swelling, Venous Insufficiency and Other (past cellulitis right lower leg wiith residual skin scaling but withotu erythema//left leg with acute findingd with swelling, erythema scaling ,tenderness,decreased foul
odor)
Skin: Warm (lower extremities with skin abnormality likely chronic with acute changes of left lower leg with wound care in place)
Wound: Other (left lower leg with acute on chronic cellulitis in uncontrolled diabetic)
Neurological: Awake, Alert, Oriented and AO x 3
Psychological: Calm (cooperative , pleasant)
Objective Data
Lab Data
Lab Results
02/15/25 06:23
02/15/25 06:23
ESR 20 mm/hour (0-20) 02/14/25 06:16
PT 14.2 Sec (11.4-14.6) 02/14/25 06:16
INR 1.07 02/14/25 06:16
APTT 33.3 Sec (23.4-35.0) 02/14/25 06:16
Estimated Creat Clear 79 ml/min 02/15/25 06:23
Lactic Acid 2.0 mmol/L (0.7-2.0) 02/13/25 16:41
Total Bilirubin 1.0 mg/dl (0.2-1.3) 02/15/25 06:23
AST 43 U/L (17-59) 02/15/25 06:23
ALT 41 U/L (0-50) 02/15/25 06:23
Alkaline Phosphatase 79 U/L (38-126) 02/15/25 06:23
Most recent labs reviewed.
Microbiology: Report Reviewed (final culture results pending with naress MRSA screen positive)
Micro Results:
02/13/25 19:38 Wound Culture - Preliminary
Leg - Left Gram Stain - Preliminary
02/13/25 19:38 Wound Culture - Preliminary
Leg - Left Gram Stain - Preliminary
02/13/25 19:38 Wound Culture - Preliminary
Leg - Left Gram Stain - Preliminary
02/14/25 00:00 MRSA Screen - Final
Nose Staph aureus MRSA
02/13/25 16:41 Blood Culture - Preliminary
Blood/Venous No Growth in 24 hours- Final report to follow
Chest X-Ray: Report Reviewed
CT Scan: Report Reviewed
MRI: Report Reviewed
Echocardiogram: Report Reviewed
Care Review
Total Time Spent with Patient (in minutes): 40
--- NOTE | 2025-02-15 16:47 | W.PN.ID1 ---
Date of Service
Date of Service: February 15, 2025
Today's Communication
Await results of microbiology cultures for targeted antibiotic
Assessment / Plan
1. Bilateral cellulitis lower legs with acute findings left lower leg with past history of cellulitis on the right with scaling skin but without acute findings at this time
2. Peripheral vascular disease with current ultrasound revealing nonocclusive clotting of the femoral, popliteal, and peroneal vessels in the setting of lymphadenopathy
3. Patient currently receiving vancomycin with careful monitoring of renal function and vancomycin trough in setting of positive MRSA nares screen
4. Targeted antibiotic to be provided upon results of pending cultures
The ID team will continue to follow with you
Chief Complaint
-: Cellulitis (with decreased discomfort, erythema,swelling left lower leg)
Subjective / Review of Systems
Review of Systems: No Fever, No Chills, No Headache, No Pharyngitis, Swollen Lymph Nodes (no swollen lymph nodes), No Swollen Lymph Nodes, No Cough, No Sputum Production, No Chest Pain, No Palpitations, No Abdominal Pain, No Nausea, No Vomiting, No
Diarrhea, No Dysuria and Skin Rash (associated with cellulitis improving slowly)
Vital Signs / Physical Exam
Vital Signs
Vital Signs
Temp Pulse Resp BP Pulse Ox
99.1 F 90 18 118/72 94
02/15/25 15:27 02/15/25 15:27 02/15/25 15:27 02/15/25 15:27 02/15/25 15:27
Physical Exam
Constitutional: No Acute Distress, Well Developed, Comfortable, Chronically Ill, Non-toxic and Obese
Head: Normocephalic
Eyes: Pupils Equal, Pupils Round, No Conjunctival Hemorrhage and Sclera Anicteric
Oropharyngeal: Benign
Cardiovascular: Regular Rate
Pulmonary: Clear and Non Labored
Gastrointestinal: Soft, Non Tender and Non Distended (central adiposity)
Extremities: Edema, Erythema, Calf Swelling, Venous Insufficiency and Other (past cellulitis right lower leg wiith residual skin scaling but withotu erythema//left leg with acute findingd with swelling, erythema scaling ,tenderness,decreased foul
odor)
Skin: Warm (lower extremities with skin abnormality likely chronic with acute changes of left lower leg with wound care in place)
Wound: Other (left lower leg with acute on chronic cellulitis in uncontrolled diabetic)
Neurological: Awake, Alert, Oriented and AO x 3
Psychological: Calm (cooperative , pleasant)
Objective Data
Lab Data
Lab Results
02/15/25 06:23
02/15/25 06:23
ESR 20 mm/hour (0-20) 02/14/25 06:16
PT 14.2 Sec (11.4-14.6) 02/14/25 06:16
INR 1.07 02/14/25 06:16
APTT 33.3 Sec (23.4-35.0) 02/14/25 06:16
Estimated Creat Clear 79 ml/min 02/15/25 06:23
Lactic Acid 2.0 mmol/L (0.7-2.0) 02/13/25 16:41
Total Bilirubin 1.0 mg/dl (0.2-1.3) 02/15/25 06:23
AST 43 U/L (17-59) 02/15/25 06:23
ALT 41 U/L (0-50) 02/15/25 06:23
Alkaline Phosphatase 79 U/L (38-126) 02/15/25 06:23
Most recent labs reviewed.
Microbiology: Report Reviewed (final culture results pending with naress MRSA screen positive)
Micro Results:
02/13/25 16:41 Blood Culture - Preliminary
Blood/Venous No Growth in 48 hours- Final report to follow
02/13/25 19:38 Wound Culture - Preliminary
Leg - Left Gram Stain - Preliminary
02/13/25 19:38 Wound Culture - Preliminary
Leg - Left Gram Stain - Preliminary
02/13/25 19:38 Wound Culture - Preliminary
Leg - Left Gram Stain - Preliminary
02/14/25 00:00 MRSA Screen - Final
Nose Staph aureus MRSA
Chest X-Ray: Report Reviewed
CT Scan: Report Reviewed
MRI: Report Reviewed
Echocardiogram: Report Reviewed
Care Review
Total Time Spent with Patient (in minutes): 40
[2025-02-15 16:49] LABS: Glucose - Point of Care 179 mg/dl (70-99)
--- NOTE | 2025-02-15 17:02 | W.PN.ID1 ---
Date of Service
Date of Service: February 15, 2025
Today's Communication
continue antibiotic
Assessment / Plan
1. Bilateral cellulitis lower legs with acute findings left lower leg with past history of cellulitis on the right with scaling skin but without acute findings at this time
2. Peripheral vascular disease with current ultrasound revealing nonocclusive clotting of the femoral, popliteal, and peroneal vessels in the setting of lymphadenopathy
3. Patient currently receiving vancomycin with careful monitoring of renal function and vancomycin trough in setting of positive MRSA nares screen
4. Targeted antibiotic to be provided upon results of pending cultures
The ID team will continue to follow with you
Chief Complaint
-: Cellulitis (with decreased discomfort, erythema,swelling left lower leg)
Vital Signs / Physical Exam
Vital Signs
Vital Signs
Temp Pulse Resp BP Pulse Ox
99.1 F 90 18 118/72 94
02/15/25 15:27 02/15/25 15:27 02/15/25 15:27 02/15/25 15:27 02/15/25 15:27
Objective Data
Lab Data
Lab Results
02/15/25 06:23
02/15/25 06:23
ESR 20 mm/hour (0-20) 02/14/25 06:16
PT 14.2 Sec (11.4-14.6) 02/14/25 06:16
INR 1.07 02/14/25 06:16
APTT 33.3 Sec (23.4-35.0) 02/14/25 06:16
Estimated Creat Clear 79 ml/min 02/15/25 06:23
Lactic Acid 2.0 mmol/L (0.7-2.0) 02/13/25 16:41
Total Bilirubin 1.0 mg/dl (0.2-1.3) 02/15/25 06:23
AST 43 U/L (17-59) 02/15/25 06:23
ALT 41 U/L (0-50) 02/15/25 06:23
Alkaline Phosphatase 79 U/L (38-126) 02/15/25 06:23
Most recent labs reviewed.
Micro Results:
02/13/25 16:41 Blood Culture - Preliminary
Blood/Venous No Growth in 48 hours- Final report to follow
02/13/25 19:38 Wound Culture - Preliminary
Leg - Left Gram Stain - Preliminary
02/13/25 19:38 Wound Culture - Preliminary
Leg - Left Gram Stain - Preliminary
02/13/25 19:38 Wound Culture - Preliminary
Leg - Left Gram Stain - Preliminary
02/14/25 00:00 MRSA Screen - Final
Nose Staph aureus MRSA
[2025-02-15] MEDS: LIPITOR 40 MG PO (17:57)
[2025-02-15] MEDS: COUMADIN 5 MG PO (17:58)
[2025-02-15] MEDS: NOVOLOG MIX 70/30 FLEXPEN 8 UNITS SC (18:01)
[2025-02-15 21:09] LABS: Glucose - Point of Care 185 mg/dl (70-99)
[2025-02-15 23:00] VITALS: BP 141/85
[2025-02-16 05:50] LABS: Hematocrit 41.1 % (39.0-52.0); Hemoglobin 13.5 g/dL (13.0-18.0); Mean Corp Hgb Conc. 32.8 g/dL (33.0-37.0); Mean Corpuscular Volume 92.6 fL (80.0-94.0); Platelet Count 202 10^3/uL (130-400); Red Cell Dist. Width 13.2 % (11.5-14.5)
[2025-02-16 05:58] LABS: INR 1.06; PT 14.3 Sec (11.4-14.6)
[2025-02-16] MEDS: VANCOCIN 275 MG IV ×2 (06:29→17:45)
[2025-02-16 06:49] LABS: Blood Urea Nitrogen 17 mg/dl (9-20); Calcium 8.9 mg/dl (8.4-10.2); Carbon Dioxide 24 mmol/L (22-30); Chloride 108 mmol/L (98-107); Estimated Creatinine Clearance 71 ml/min; Glucose 167 mg/dl (70-99); Magnesium 2.2 mg/dl (1.6-2.3); Potassium 3.8 mmol/L (3.5-5.1); Sodium 139 mmol/L (135-145); eGFR > 60.00
[2025-02-16 07:30] VITALS: BP 155/90
--- NOTE | 2025-02-16 07:32 | PN.DE.MGMTRT ---
Insulin Management
- -
02/16/2025 Diabetes Management Consult Follow up
Patient admitted 02/13 with pain swelling and discharge from multiple wounds LLg. [facility] HTN, diabetes, pulmonary embolism, bilateral leg swelling for several years. Prior to admission was taking no medication for diabetes. A1C 10.5%, cr 1, eGFR >
60.
Patient is awake alert and oriented able to discuss diabetes care. States: 'family history of diabetes so I tried to watch what I eat'. States his primary doctor started him on metformin, years back, but it did not agree with him. He admits he
has not been to a doctor in over a year.
Glucose on admission 305.
02/15 Patient states he does not have prescription coverage. Explained that in this situation best to start 70/30 BID as it would be a more reasonable elizondo at [facility]. He is agreeable. 8 units 70/30 novolog with dinner with low corrective. HS
glucose 185.
02/16 Fasting glucose 167. Will continue 70/30 insulin and increase to 9 unit BID with low corrective insulin.
Recommended [employer] meter as test strips will also be more affordable.
Diabetes Nurse Educator has instructed patient on prep and self injection for 70/30. Request all injections be administered by patient with nursing supervision. Home pen needles provided.
Patient states CM mentioned working on getting prescription coverage.
Discussed with nurse.
Will follow
Diabetes History
- -
Type of Diabetes: 2 requiring insulin
Pre-Admission Diabetes Regimen
02/15/25 02/16/25
06:23 05:35
Creatinine 1.0 1.1
Lab Results
Hemoglobin A1c 10.5 % (4.0-5.6) H 02/14/25 06:16
Insulin Pump Settings
IP Diabetes Regimen
02/15/25 02/15/25 02/15/25
07:51 10:55
Glucose 178 H
POC Glucose 166 H 246 H
0602/15/25 02/16/25
16:48 21:08 05:35
Glucose 167 H
POC Glucose 179 H 185 H
Meal type: Dinner
Meal type: Lunch
Meal type: Breakfast
Amount consumed: 85%
Amount consumed: 95%
Patient Education
[2025-02-16 08:07] LABS: Glucose - Point of Care 168 mg/dl (70-99)
[2025-02-16] MEDS: NOVOLOG FLEXPEN-LOW RESISTANCE 1 UNITS SC ×3 (08:37→17:08)
[2025-02-16] MEDS: TRANDATE 100 MG PO ×2 (08:38→20:54)
[2025-02-16] MEDS: ZESTRIL 5 MG PO (08:38)
[2025-02-16] MEDS: ASPIR LOW (ENTERIC COATED) 81 MG PO (08:38)
[2025-02-16] MEDS: NOVOLOG MIX 70/30 FLEXPEN 9 UNITS SC ×2 (08:39→17:08)
[2025-02-16] MEDS: DAKIN'S SOLUTION 0.125% 1/4 STRENGTH 20 ML TOPICAL (09:22)
--- NOTE | 2025-02-16 09:31 | PHA.VAN.FU ---
Vancomycin Assessment / Plan
- Assessment
Renal Function: Stable
WBC's are: WNL
- Assessment - Therapeutic Drug Monitoring
Extrapolated Cmax (mcg/mL): 24.5
Peak level was drawn: Appropriately (drawn ~2.8 H after end of previous infusion)
Extrapolated Cmin (mcg/mL): 12.6
Trough Drawn: Appropriately
Levels were drawn: At steady state (levels drawn after 4th maintenance dose)
Calculated AUC (mcg*h/mL): 431
Calculated ke: 0.0632
Calculated half life (H): 11
Calculated Vd (L): 92 (~0.9 L/kg)
Calculated Vanc CL (ml/min): 97
- Dosing Plan
Continue: Vanc 1250mg Q12H
- Monitoring Plan
Level(s) appropriate: Recheck trough at minimum of weekly intervals, Repeat sooner for changes in renal function or clinical status
Next Level Due (Date): ~02/22
- Follow Up
Pharmacy will continue to follow.
Vancomycin Follow UP
- -
Patient Age: 69
Patient Sex: Male
Vancomycin Day #: 4
Indication: Skin And Soft Tissue
Requesting Provider: Dr. Soliz / Juliana
Pertinent Antimicrobial Allergies:
Sulfa allergy/unknown
Height / Weight:
Height 5 ft 6 in
Actual Weight 100.839 kg
Pertinent Past Medical History: BMI~36; DM
- Vital Signs / Lab Results
Temp Pulse Resp BP Pulse Ox
100.0 F 92 16 155/90 93
02/16/25 07:30 02/16/25 08:38 02/16/25 07:30 02/16/25 08:38 02/16/25 07:30
Lab Results - Hematology
02/13/25 02/14/25 02/15/25
16:41 06:16 06:23
WBC 8.8 10.0 9.7
02/16/25
05:35
WBC 9.6
Lab Results - Chemistry
02/13/25 02/14/25 02/15/25
16:41 06:16 06:23
BUN 21 H 18 19
Creatinine 1.1 1.0 1.0
Estimated Creat Clear 79 79
Albumin 3.7 3.4 L
02/16/25
05:35
BUN 17
Creatinine 1.1
Estimated Creat Clear 71
Albumin
02/13/25
16:41
Lactic Acid 2.0
Microbiology Results
02/13/25 16:41 Blood Culture - Preliminary
Blood/Venous No Growth in 48 hours- Final report to follow
02/13/25 19:38 Wound Culture - Preliminary
Leg - Left Gram Stain - Preliminary
02/13/25 19:38 Wound Culture - Preliminary
Leg - Left Gram Stain - Preliminary
02/13/25 19:38 Wound Culture - Preliminary
Leg - Left Gram Stain - Preliminary
02/14/25 00:00 MRSA Screen - Final
Nose Staph aureus MRSA
Therapeutic Drug Monitoring
Vancomycin Peak 20.5 ug/ml (18-26) 02/15/25 22:15
Vancomycin Trough 12.9 ug/ml (5-20) 02/16/25 05:35
[2025-02-16] MEDS: ROXICODONE 5 MG PO ×2 (10:22→17:05)
--- NOTE | 2025-02-16 10:27 | VNURNOTE ---
Home Health Liaison met with patient at bedside to discuss [facility] nurse/therapy, visits, schedule and homebound status. Patient is agreeable and understands that visits at home will be 2-3 x per week to assess and teach medical management. Patient is
aware that [facility] will contact them for start of care in 1-2 days after discharge from .
[facility] referral completed in [facility].
--- NOTE | 2025-02-16 11:21 | W.PN.HOSP.TC ---
Today's Communication/Plan
-
see A/P
Assessment / Plan
Assessment / Plan
HPI: 69-year-old with past medical history only of prior pulmonary embolism status post thrombolysis, diet controlled elevated blood sugar but no diagnosis of diabetes; p/w worsening lesions in the left lower extremity.
Patient stated that he has had bilateral lower extremity swelling intermittently for several years. He started having cellulitis in his leg in 2020.
He reported onset of a saccular lesion in his lateral left lower extremity for several weeks. Then additional lesions developed in the anterior and posterior segments. He denies any injuries. He has been attempting to keep his leg elevated but is
now unable to do so due to the location of the lesion.
Patient stated that he has been taking ibuprofen every 5 hours to control the pain and feels like this has also been controlling fever. He denies having chills. He has not had any nausea or vomiting.
X-ray of the tibia-fibula and foot shows no fracture. Did not see any foreign body. Obvious large ulcerations extending into the subcutaneous layer, and no gas noted.
A/P
# LLE Cellulitis with Large ulcerations without drainage.
# Suspect venostasis dermatitis, possible pyoderma.
No deep tissue infection on xray, noted large ulcerations extending into the subcutaneous layer, no gas noted.
wound culture polymicrobial
blood culture negative,
Started IV vancomycin, cont
ID on board
wound care on board
pain control
# Hyperglycemia due to untreated diabetes
A1c 10.5%
Insulin adjusted to 70/30 at 9 units BID by DM [employer]ER
Cont sliding scale insulin,
Pt declined metformin 500 bid due to previous severe GI S/E
appreciate DM [employer] input
# Hyperlipidemia
LDL 117
started Lipitor 40 mg
# Mild transaminitis, suspect reactive, resolved
# Uncontrolled HTN
# HTN urgency
Started Labetalol 100 mg bid and lisinopril 5 mg
Monitor BP
# h/o PE s/p IVC filter and removal.
# LLE DVT
Not on AC due to cost/non-compliance. Unclear if provoked PE in 2019
LLE u/s showed non-occlusive thrombus of the within the femoral vein, popliteal vein and peroneal vein
on aspirin.
Cost of Eliquis and Xarelto both at around 600 dollar per month, which pt cannot afford
Cont therapeutic Lovenox for now
Heme on board for OAC recc, recc Coumadin
adjust Coumadin to 10 mg HS and check daily INR
DVT PPX - therapeutic Lovenox with bridging to Coumadin
Code status - Full Code
DW CM
Anticipated Discharge: > 48 hours
Subjective/Interval History
-
Date of Service: February 16, 2025
Objective Data
-
Labs:
Laboratory Results
02/16/25
05:35
WBC 9.6
Hgb 13.5
Hct 41.1
Plt Count 202
PT 14.3
INR 1.06
Sodium 139
Potassium 3.8
Chloride 108 H
Carbon Dioxide 24
BUN 17
Creatinine 1.1
Glucose 167 H
Calcium 8.9
Vital Signs:
Vital Signs
Temp Pulse Resp BP Pulse Ox
37.8 C 92 16 155/90 93
02/16/25 07:30 02/16/25 08:38 02/16/25 07:30 02/16/25 08:38 02/16/25 07:30
I&O
02/15/25 02/16/25 02/17/25
06:59 06:59 06:59
Intake Total 755 / 755 630 / 630
Balance 755 / 755 630 / 630
Review of Systems
-
History Source: Patient
Skin: Reports Other (LLE ulcers)
Physical Exam
-
General: Well Developed, Well Nourished, No Apparent Distress, Comfortable, Conversant and Obese; Negative Respiratory Distress
HEENT: Normocephalic, Atraumatic, Nose Appears Normal and Ears Appear Normal; Negative Oxygen
Respiratory: Clear to Auscultation and Non Labored Respirations; Negative Accessory Resp Muscle Use
Cardiac: Regular Rhythm and S1/S2
GI: Soft, Nontender, Nondistended and Normal Bowel Sounds
Skin: Ulcers (see wound care note) and Other (see wound care note)
Neuro: Awake, Alert, Oriented and AO x 3
Psych: Calm and Intact Judgement/Insight
Data Reviewed
-
Ultrasound: Report Reviewed by me
Labs: Labs Reviewed by me, Discussed with Patient and Discussed with Family
[2025-02-16] MEDS: LOVENOX 100 MG SC ×2 (11:35→22:46)
[2025-02-16 11:49] LABS: Glucose - Point of Care 163 mg/dl (70-99)
--- NOTE | 2025-02-16 11:49 | CM ---
Patient seen at bedside
CM called [facility] and spoke with pharmacist Jeff regarding medication costs
Discussed with patient - [facility] updated to reflect preferred pharmacy [facility]
spoke with hospitalist regarding medication/costs
[facility]
PLAN: Home with [facility] when stable
--- NOTE | 2025-02-16 15:17 | W.PN.ID1 ---
Date of Service
Date of Service: February 16, 2025
Today's Communication
Continue current antibiotic for MRSA multiple GNR based on wound cultures and nares screen
Assessment / Plan
1. Bilateral cellulitis lower legs with acute findings left lower leg with past history of cellulitis on the right with scaling skin but without acute findings at this time some decrease in erythema, scaling and odor
2. Peripheral vascular disease with current ultrasound revealing nonocclusive clotting of the femoral, popliteal, and peroneal vessels in the setting of lymphadenopathy
3. Patient currently receiving vancomycin with careful monitoring of renal function and vancomycin trough in setting of positive MRSA nares screen and wound cultures
Blood cultures with NGTD
Wound cultures with MRSA and GNR 4 species
Afebrile with decreased leukocytosis
4. Targeted antibiotic to be provided upon results of pending cultures
5. Wound care in place and will need continued wound care upon discharge
The ID team will continue to follow with you
Chief Complaint
-: Cellulitis (with decreased discomfort, erythema,swelling left lower leg)
Subjective / Review of Systems
Review of Systems: No Fever, No Chills, No Headache, No Pharyngitis, No Stiff Neck, No Swollen Lymph Nodes, No Cough, No Sputum Production, No Chest Pain, No Palpitations, No Abdominal Pain, No Nausea, No Vomiting, No Diarrhea, No Dysuria, No Joint
Pain and Skin Rash (slowly improving cellulitis with decreasing erythema ad scaling and odor)
Vital Signs / Physical Exam
Vital Signs
Vital Signs
Temp Pulse Resp BP Pulse Ox
100.0 F 92 16 155/90 93
02/16/25 07:30 02/16/25 08:38 02/16/25 07:30 02/16/25 08:38 02/16/25 07:30
Physical Exam
Constitutional: No Acute Distress, Well Developed, Comfortable, Non-toxic and Obese (continued lower extremity discomfort with more pain left than right)
Head: Normocephalic
Eyes: Pupils Equal, Pupils Round, No Conjunctival Hemorrhage and Sclera Anicteric
Oropharyngeal: Benign
Cardiovascular: Regular Rate and Peripheral Edema
Pulmonary: Clear and Non Labored
Gastrointestinal: Soft, Non Tender, Distended and Decreased Bowel Sounds (cetral adiposity)
Extremities: Edema and Calf Swelling (lower extremities with decreasing erythema with more erythema right lower leg than left, decreses scaling bilateral lower legs)
Skin: Warm, Dry, Rash and Ulcers (Bilateral lower legs and feet with cellulitis with slow improvement with decreasing pain, slough, scaling , odor)
Wound: Other (see above as well as wound care notes)
Neurological: Awake, Alert, Oriented and AO x 3
Psychological: Calm
Lines: PIV
Objective Data
Lab Data
Lab Results
02/16/25 05:35
02/16/25 05:35
ESR 20 mm/hour (0-20) 02/14/25 06:16
PT 14.3 Sec (11.4-14.6) 02/16/25 05:35
INR 1.06 02/16/25 05:35
APTT 33.3 Sec (23.4-35.0) 02/14/25 06:16
Estimated Creat Clear 71 ml/min 02/16/25 05:35
Lactic Acid 2.0 mmol/L (0.7-2.0) 02/13/25 16:41
Total Bilirubin 1.0 mg/dl (0.2-1.3) 02/15/25 06:23
AST 43 U/L (17-59) 02/15/25 06:23
ALT 41 U/L (0-50) 02/15/25 06:23
Alkaline Phosphatase 79 U/L (38-126) 02/15/25 06:23
Most recent labs reviewed.
Microbiology: Report Reviewed
Micro Results:
02/13/25 19:38 Wound Culture - Final
Leg - Left Gram Stain - Final
02/13/25 19:38 Wound Culture - Final
Leg - Left Gram Stain - Final
02/13/25 19:38 Wound Culture - Final
Leg - Left Gram Stain - Final
02/13/25 16:41 Blood Culture - Preliminary
Blood/Venous No Growth in 48 hours- Final report to follow
02/14/25 00:00 MRSA Screen - Final
Nose Staph aureus MRSA
Chest X-Ray: Report Reviewed
Care Review
Plan reviewed with: Nurse
Total Time Spent with Patient (in minutes): 35
[2025-02-16 16:00] VITALS: BP 119/75
[2025-02-16 16:57] LABS: Glucose - Point of Care 171 mg/dl (70-99)
[2025-02-16] MEDS: STERILE WATER FOR INJECTION 10 ML IV (17:46)
[2025-02-16] MEDS: MAXIPIME 1000 MG IV (17:46)
[2025-02-16] MEDS: LIPITOR 40 MG PO (17:47)
[2025-02-16] MEDS: COUMADIN 5 MG PO (17:47)
[2025-02-16 21:28] LABS: Glucose - Point of Care 176 mg/dl (70-99)
[2025-02-16 23:30] VITALS: BP 139/90
[2025-02-17] MEDS: ROXICODONE 5 MG PO ×3 (01:21→12:40)
[2025-02-17] MEDS: VANCOCIN 275 MG IV ×2 (06:06→18:08)
[2025-02-17] MEDS: MAXIPIME 1000 MG IV ×2 (06:06→18:00)
[2025-02-17] MEDS: STERILE WATER FOR INJECTION 10 ML IV ×2 (06:06→18:05)
[2025-02-17 06:12] LABS: Hematocrit 42.5 % (39.0-52.0); Hemoglobin 14.3 g/dL (13.0-18.0); Mean Corp Hgb Conc. 33.6 g/dL (33.0-37.0); Mean Corpuscular Volume 92.2 fL (80.0-94.0); Platelet Count 227 10^3/uL (130-400); Red Cell Dist. Width 13.2 % (11.5-14.5)
[2025-02-17 06:24] LABS: INR 1.10; PT 14.7 Sec (11.4-14.6)
[2025-02-17 06:46] LABS: Blood Urea Nitrogen 18 mg/dl (9-20); Calcium 9.0 mg/dl (8.4-10.2); Carbon Dioxide 26 mmol/L (22-30); Chloride 106 mmol/L (98-107); Estimated Creatinine Clearance 66 ml/min; Glucose 201 mg/dl (70-99); Potassium 4.2 mmol/L (3.5-5.1); Sodium 140 mmol/L (135-145); eGFR > 60.00
--- NOTE | 2025-02-17 07:15 | PN.DE.MGMTRT ---
Insulin Management
- -
02/17/2025 Diabetes Management Consult Follow up
Patient admitted 02/13 with pain swelling and discharge from multiple wounds [facility]. [facility] HTN, diabetes, pulmonary embolism, bilateral leg swelling for several years. Prior to admission was taking no medication for diabetes. A1C 10.5%, cr 1, eGFR >
60.
Patient is awake alert and oriented able to discuss diabetes care. States: 'family history of diabetes so I tried to watch what I eat'. States his primary doctor started him on metformin, years back, but it did not agree with him. He admits he
has not been to a doctor in over a year.
Glucose on admission 305.
02/16 Due to cost 70/30 continued. Fasting glucose 167. 70/30 insulin increased to 9 unit BID with low corrective insulin.
02/17 Fasting glucose 201, pre meal range 163 to 171. Will increase BID 70/30 to 10 units.
Recommended [employer] meter as test strips will also be more affordable.
Diabetes Nurse Educator has instructed patient on prep and self injection for 70/30. Request all injections be administered by patient with nursing supervision. Home pen needles provided.
Patient states CM mentioned working on getting prescription coverage.
Discussed with nurse.
Will follow
Diabetes History
- -
Type of Diabetes: 2 requiring insulin
Pre-Admission Diabetes Regimen
02/17/25
06:02
Creatinine 1.2
Lab Results
Hemoglobin A1c 10.5 % (4.0-5.6) H 02/14/25 06:16
Insulin Pump Settings
IP Diabetes Regimen
02/16/25 02/16/25 02/16/25
08:04 11:48 16:56
Glucose
POC Glucose 168 H 163 H 171 H
02/16/25 02/17/25
21:27 06:02
Glucose 201 H
POC Glucose 176 H
Patient Education
[2025-02-17 07:30] VITALS: BP 133/82
[2025-02-17] MEDS: TRANDATE 100 MG PO ×2 (07:59→20:13)
[2025-02-17] MEDS: ASPIR LOW (ENTERIC COATED) 81 MG PO (07:59)
[2025-02-17] MEDS: ZESTRIL 5 MG PO (08:00)
[2025-02-17 08:07] LABS: Glucose - Point of Care 190 mg/dl (70-99)
[2025-02-17] MEDS: DAKIN'S SOLUTION 0.125% 1/4 STRENGTH 20 ML TOPICAL (08:08)
[2025-02-17] MEDS: NOVOLOG FLEXPEN-LOW RESISTANCE 1 UNITS SC ×2 (08:14→12:37)
[2025-02-17] MEDS: NOVOLOG MIX 70/30 FLEXPEN 10 UNITS SC ×2 (08:15→18:10)
--- NOTE | 2025-02-17 08:22 | PHA.VAN.FU ---
Vancomycin Assessment / Plan
- Assessment
Renal Function: Stable (slight increasing trend)
WBC's are: Trending Up
In the past 24 hrs, patient has been: Afebrile
Concomitant Antimicrobials: cefepime
- Dosing Plan
Continue: Vanc 1250mg Q12H
- Monitoring Plan
Level(s) appropriate: Recheck trough at minimum of weekly intervals, Repeat sooner for changes in renal function or clinical status
Next Level Due (Date): ~02/22
- Follow Up
Pharmacy will continue to follow.
Vancomycin Follow UP
- -
Patient Age: 69
Patient Sex: Male
Vancomycin Day #: 5
Indication: Skin And Soft Tissue
Requesting Provider: Dr. Soliz / Juliana
Pertinent Antimicrobial Allergies:
Sulfa allergy/unknown
Height / Weight:
Height 5 ft 6 in
Actual Weight 100.839 kg
Pertinent Past Medical History: BMI~36; DM
- Vital Signs / Lab Results
Temp Pulse Resp BP Pulse Ox
99.1 F 100 16 133/82 93
02/17/25 07:30 02/17/25 07:30 02/17/25 07:30 02/17/25 07:30 02/17/25 07:30
Lab Results - Hematology
02/15/25 02/16/25 02/17/25
06:23 05:35 06:02
WBC 9.7 9.6 11.1 H
Lab Results - Chemistry
02/15/25 02/16/25 02/17/25
06:23 05:35 06:02
BUN 19 17 18
Creatinine 1.0 1.1 1.2
Estimated Creat Clear 79 71 66
Albumin 3.4 L
Microbiology Results
02/13/25 16:41 Blood Culture - Preliminary
Blood/Venous No Growth in 72 hours- Final report to follow
02/13/25 19:38 Wound Culture - Final
Leg - Left Gram Stain - Final
02/13/25 19:38 Wound Culture - Final
Leg - Left Gram Stain - Final
02/13/25 19:38 Wound Culture - Final
Leg - Left Gram Stain - Final
02/14/25 00:00 MRSA Screen - Final
Nose Staph aureus MRSA
Therapeutic Drug Monitoring
Vancomycin Peak 20.5 ug/ml (18-26) 02/15/25 22:15
Vancomycin Trough 12.9 ug/ml (5-20) 02/16/25 05:35
--- NOTE | 2025-02-17 12:25 | W.PN.HOSP.TC ---
Today's Communication/Plan
-
see A/P
Assessment / Plan
Assessment / Plan
HPI: 69-year-old with past medical history only of prior pulmonary embolism status post thrombolysis, diet controlled elevated blood sugar but no diagnosis of diabetes; p/w worsening lesions in the left lower extremity.
Patient stated that he has had bilateral lower extremity swelling intermittently for several years. He started having cellulitis in his leg in 2020.
He reported onset of a saccular lesion in his lateral left lower extremity for several weeks. Then additional lesions developed in the anterior and posterior segments. He denies any injuries. He has been attempting to keep his leg elevated but is
now unable to do so due to the location of the lesion.
Patient stated that he has been taking ibuprofen every 5 hours to control the pain and feels like this has also been controlling fever. He denies having chills. He has not had any nausea or vomiting.
X-ray of the tibia-fibula and foot shows no fracture. Did not see any foreign body. Obvious large ulcerations extending into the subcutaneous layer, and no gas noted.
A/P
# LLE Cellulitis with Large ulcerations without drainage.
# Suspect venostasis dermatitis, possible pyoderma.
No deep tissue infection on xray, noted large ulcerations extending into the subcutaneous layer, no gas noted.
wound culture polymicrobial
blood culture negative,
cont IV vancomycin, added cefepime, cont both
ID on board , wound care on board
pain control
# Hyperglycemia due to untreated diabetes
A1c 10.5%
Started Insulin 70/30, adjusted to 10 units BID by DM WAG[employer]ER
Cont sliding scale insulin,
Pt declined metformin 500 bid due to previous severe GI S/E
appreciate DM [employer]AG[employer] W[employer]ER input
# Hyperlipidemia
LDL 117
started Lipitor 40 mg
# Mild transaminitis, suspect reactive, resolved
# Uncontrolled HTN
# HTN urgency, resolved
Started Labetalol 100 mg bid and lisinopril 5 mg
Monitor BP
# h/o PE s/p IVC filter and removal.
# LLE DVT
Not on AC due to cost/non-compliance. Unclear if provoked PE in 2019
LLE u/s showed non-occlusive thrombus of the within the femoral vein, popliteal vein and peroneal vein
on aspirin.
Cost of Eliquis and Xarelto both at around 600 dollar per month, which pt cannot afford
Cont therapeutic Lovenox for now
Heme on board for OAC recc, recc Coumadin
Cont Coumadin 5 mg HS and check daily INR , INR goal 2-3, ideally should reach close to 2 before discharge
DVT PPX - therapeutic Lovenox with bridging to Coumadin
Code status - Full Code
DW RN
Anticipated Discharge: > 48 hours
Subjective/Interval History
-
Date of Service: February 17, 2025
Objective Data
-
Labs:
Laboratory Results
02/17/25
06:02
WBC 11.1 H
Hgb 14.3
Hct 42.5
Plt Count 227
PT 14.7 H
INR 1.10
Sodium 140
Potassium 4.2
Chloride 106
Carbon Dioxide 26
BUN 18
Creatinine 1.2
Glucose 201 H
Calcium 9.0
Vital Signs:
Vital Signs
Temp Pulse Resp BP Pulse Ox
37.3 C 100 16 133/82 93
02/17/25 07:30 02/17/25 07:59 02/17/25 07:30 02/17/25 07:59 02/17/25 07:30
I&O
02/16/25 02/17/25 02/18/25
06:59 06:59 06:59
Intake Total 630 / 630 1200 / 1200
Balance 630 / 630 1200 / 1200
Review of Systems
-
History Source: Patient
Skin: Reports Other (LLE ulcers)
Physical Exam
-
General: Well Developed, Well Nourished, No Apparent Distress, Comfortable, Conversant and Obese; Negative Respiratory Distress
HEENT: Normocephalic, Atraumatic, Nose Appears Normal and Ears Appear Normal; Negative Oxygen
Respiratory: Clear to Auscultation and Non Labored Respirations; Negative Accessory Resp Muscle Use
Cardiac: Regular Rhythm and S1/S2
GI: Soft, Nontender, Nondistended and Normal Bowel Sounds
Skin: Ulcers (see wound care note) and Other (see wound care note)
Neuro: Awake, Alert, Oriented and AO x 3
Psych: Calm and Intact Judgement/Insight
Data Reviewed
-
Ultrasound: Report Reviewed by me
Labs: Labs Reviewed by me, Discussed with Patient and Discussed with Family
[2025-02-17 12:35] LABS: Glucose - Point of Care 175 mg/dl (70-99)
[2025-02-17] MEDS: LOVENOX 100 MG SC ×2 (12:36→23:04)
--- NOTE | 2025-02-17 13:16 | W.PN.ID1 ---
Date of Service
Date of Service: February 17, 2025
Today's Communication
continue Vancomycin with careful monitoring of renal function in uncontrolled diabetic//empiric broad spectrum antibiotic in place
Assessment / Plan
1. Bilateral cellulitis lower legs with acute findings left lower leg with past history of cellulitis on the right with scaling skin but without acute findings at this time some decrease in erythema, scaling and odor
2. Peripheral vascular disease with current ultrasound revealing nonocclusive clotting of the femoral, popliteal, and peroneal vessels in the setting of lymphadenopathy
3. Patient currently receiving vancomycin with careful monitoring of renal function and vancomycin trough in setting of positive MRSA nares screen and wound cultures
Blood cultures with NGTD
Wound cultures with MRSA and GNR 4 species
Afebrile with mild leukocytosis
4. Targeted antibiotic for MRSA with empiric broad spectrum antibiotic also in place
5. Wound care team in place with daily dressing changes/ will need continued wound care upon discharge
The ID team will continue to follow with you
Chief Complaint
-: Cellulitis (with decreased discomfort, erythema,swelling left lower leg)
Subjective / Review of Systems
Review of Systems: No Fever, No Chills, No Headache, No Pharyngitis, No Stiff Neck, No Swollen Lymph Nodes, No Cough, No Sputum Production, No Chest Pain, No Palpitations, No Abdominal Pain, No Nausea, No Vomiting, No Diarrhea, No Dysuria and Skin
Rash (lower extremity cellulitis with significant ulceratin left lower leg )
Vital Signs / Physical Exam
Vital Signs
Vital Signs
Temp Pulse Resp BP Pulse Ox
99.1 F 100 16 133/82 93
02/17/25 07:30 02/17/25 07:59 02/17/25 07:30 02/17/25 07:59 02/17/25 07:30
Physical Exam
Constitutional: No Acute Distress, Well Developed, Comfortable, Chronically Ill, Non-toxic and Obese
Head: Normocephalic
Eyes: Pupils Equal, Pupils Round, No Conjunctival Hemorrhage and Sclera Anicteric
Oropharyngeal: Benign
Cardiovascular: Regular Rate
Pulmonary: Clear and Non Labored
Gastrointestinal: Soft, Non Tender, Decreased Bowel Sounds, No Rebound and No Guarding (central adiposity)
Extremities: Edema, Erythema and Calf Swelling (bilateral lower legs with history of cellulitis with current focus on ulceration, erythema, soft tissue infection of left lower leg with dressing in place)
Skin: Warm, Dry and Rash (scaling improving with wound care,less erythema on left lower leg and none on right)
Wound: Other (left leg being cred for by wound care team)
Neurological: Awake (sleepy this AM offeres no complaints today)
Psychological: Calm
Lines: PIV
Objective Data
Lab Data
Lab Results
02/17/25 06:02
02/17/25 06:02
ESR 20 mm/hour (0-20) 02/14/25 06:16
PT 14.7 Sec (11.4-14.6) H 02/17/25 06:02
INR 1.10 02/17/25 06:02
APTT 33.3 Sec (23.4-35.0) 02/14/25 06:16
Estimated Creat Clear 66 ml/min 02/17/25 06:02
Lactic Acid 2.0 mmol/L (0.7-2.0) 02/13/25 16:41
Total Bilirubin 1.0 mg/dl (0.2-1.3) 02/15/25 06:23
AST 43 U/L (17-59) 02/15/25 06:23
ALT 41 U/L (0-50) 02/15/25 06:23
Alkaline Phosphatase 79 U/L (38-126) 02/15/25 06:23
Most recent labs reviewed.
Microbiology: Report Reviewed (MRSA precautions in place)
Micro Results:
02/13/25 16:41 Blood Culture - Preliminary
Blood/Venous No Growth in 72 hours- Final report to follow
02/13/25 19:38 Wound Culture - Final
Leg - Left Gram Stain - Final
02/13/25 19:38 Wound Culture - Final
Leg - Left Gram Stain - Final
02/13/25 19:38 Wound Culture - Final
Leg - Left Gram Stain - Final
02/14/25 00:00 MRSA Screen - Final
Nose Staph aureus MRSA
Care Review
Total Time Spent with Patient (in minutes): 35
--- NOTE | 2025-02-17 13:58 | CM ---
Patient chart reviewed
cont on IV antibiotics
[facility] preferred pharmacy in [facility] added
PLAN: Home with [facility] when stable
[2025-02-17 15:45] VITALS: BP 135/78
[2025-02-17 17:08] LABS: Glucose - Point of Care 213 mg/dl (70-99)
[2025-02-17] MEDS: COUMADIN 5 MG PO (18:07)
[2025-02-17] MEDS: LIPITOR 40 MG PO (18:07)
[2025-02-17] MEDS: NOVOLOG FLEXPEN-LOW RESISTANCE 2 UNITS SC (18:10)
[2025-02-17] MEDS: DILAUDID 0.5 MG IV (20:12)
[2025-02-17] MEDS: TYLENOL 650 MG PO (20:14)
[2025-02-17 20:44] LABS: Glucose - Point of Care 194 mg/dl (70-99)
[2025-02-17 23:39] VITALS: BP 109/66
[2025-02-18] MEDS: MAXIPIME 1000 MG IV ×2 (05:35→17:17)
[2025-02-18] MEDS: STERILE WATER FOR INJECTION 10 ML IV ×2 (05:35→17:17)
[2025-02-18] MEDS: VANCOCIN 275 MG IV ×2 (05:44→17:22)
[2025-02-18 06:56] LABS: Hematocrit 40.5 % (39.0-52.0); Hemoglobin 13.6 g/dL (13.0-18.0); Mean Corp Hgb Conc. 33.6 g/dL (33.0-37.0); Mean Corpuscular Volume 91.8 fL (80.0-94.0); Platelet Count 217 10^3/uL (130-400); Red Cell Dist. Width 13.3 % (11.5-14.5)
[2025-02-18 07:00] VITALS: BP 110/74
[2025-02-18 07:01] LABS: Glucose - Point of Care 157 mg/dl (70-99)
[2025-02-18 07:05] LABS: INR 1.29; PT 16.4 Sec (11.4-14.6)
[2025-02-18 07:30] LABS: Blood Urea Nitrogen 22 mg/dl (9-20); Calcium 8.6 mg/dl (8.4-10.2); Carbon Dioxide 24 mmol/L (22-30); Chloride 108 mmol/L (98-107); Estimated Creatinine Clearance 79 ml/min; Glucose 167 mg/dl (70-99); Potassium 4.1 mmol/L (3.5-5.1); Sodium 137 mmol/L (135-145); eGFR > 60.00
--- NOTE | 2025-02-18 07:43 | PN.DE.MGMTRT ---
Insulin Management
- -
02/18/2025: Diabetes Management Follow up
Patient admitted 02/13 with pain swelling and discharge from multiple wounds LLE. PMH: HTN, T2DM, Pulmonary Embolism, BLE swelling for several years. Prior to admission was taking no medication for diabetes. A1C 10.5%, Cr 1, eGFR > 60.
States: 'family history of diabetes so I tried to watch what I eat'. States his primary doctor started him on metformin, years back, but it did not agree with him. He admits he has not been to a doctor in over a year.
Glucose on admission 305
Patient is awake alert and oriented, resting in bed, able to discuss diabetes care. . Insulin regime was switched to 70/30 due to cost.
02/17 premeal range 175 to 213. 02/18 Fasting glucose 167 V, 157 POC.
Will increase 70/30 dose to 12 units BID. Pt declined Metformin, states he had severe GI adverse reactions.
Recommended Overseemart meter as test strips will also be more affordable.
Diabetes Nurse Educator has instructed patient on prep and self injection for 70/30. Request all injections be administered by patient with nursing supervision. Home pen needles provided.
Patient states CM mentioned working on getting prescription coverage.
Discussed with nurse. Will cont to follow
Diabetes History
- -
Type of Diabetes: 2 requiring insulin
Pre-Admission Diabetes Regimen
02/18/25
06:30
Creatinine 1.0
Lab Results
Hemoglobin A1c 10.5 % (4.0-5.6) H 02/14/25 06:16
Insulin Pump Settings
IP Diabetes Regimen
02/17/25 02/17/25 02/17/25
08:06 12:34 17:06
Glucose
POC Glucose 190 H 175 H 213 H
02/17/25 02/18/25 02/18/25
20:43 06:30 07:00
Glucose 167 H
POC Glucose 194 H 157 H
Patient Education
[2025-02-18] MEDS: ZESTRIL 5 MG PO (07:47)
[2025-02-18] MEDS: ASPIR LOW (ENTERIC COATED) 81 MG PO (07:47)
[2025-02-18] MEDS: NOVOLOG FLEXPEN-LOW RESISTANCE 1 UNITS SC ×2 (07:47→12:00)
[2025-02-18] MEDS: TRANDATE 100 MG PO ×2 (07:47→21:14)
[2025-02-18] MEDS: DAKIN'S SOLUTION 0.125% 1/4 STRENGTH 473 ML TOPICAL (07:48)
[2025-02-18] MEDS: NOVOLOG MIX 70/30 FLEXPEN 12 UNITS SC ×2 (07:53→17:10)
[2025-02-18] MEDS: ROXICODONE 5 MG PO ×2 (08:10→12:10)
--- NOTE | 2025-02-18 08:37 | PHA.VAN.FU ---
Vancomycin Assessment / Plan
- Assessment
Renal Function: Stable
WBC's are: WNL
Concomitant Antimicrobials: cefepime
- Dosing Plan
Continue: Vanc 1250mg Q12H
- Monitoring Plan
Level(s) appropriate: Recheck trough at minimum of weekly intervals, Repeat sooner for changes in renal function or clinical status
Next Level Due (Date): ~02/22
- Follow Up
Pharmacy will continue to follow.
Vancomycin Follow UP
- -
Patient Age: 69
Patient Sex: Male
Vancomycin Day #: 6
Indication: Skin And Soft Tissue
Requesting Provider: Dr. Soliz / Juliana
Pertinent Antimicrobial Allergies:
Sulfa allergy- unknown
Height / Weight:
Height 5 ft 6 in
Actual Weight 100.839 kg
Pertinent Past Medical History: BMI~36; DM
- Vital Signs / Lab Results
Temp Pulse Resp BP Pulse Ox
99.5 F 87 16 110/74 95
02/18/25 07:00 02/18/25 07:00 02/18/25 07:00 02/18/25 07:00 02/18/25 07:00
Lab Results - Hematology
02/16/25 02/17/25 02/18/25
05:35 06:02 06:30
WBC 9.6 11.1 H 8.0
Lab Results - Chemistry
02/16/25 02/17/25 02/18/25
05:35 06:02 06:30
BUN 17 18 22 H
Creatinine 1.1 1.2 1.0
Estimated Creat Clear 71 66 79
Microbiology Results
02/13/25 16:41 Blood Culture - Preliminary
Blood/Venous No Growth in 4 days- Final report to follow
02/13/25 19:38 Wound Culture - Final
Leg - Left Gram Stain - Final
02/13/25 19:38 Wound Culture - Final
Leg - Left Gram Stain - Final
02/13/25 19:38 Wound Culture - Final
Leg - Left Gram Stain - Final
Therapeutic Drug Monitoring
Vancomycin Peak 20.5 ug/ml (18-26) 02/15/25 22:15
Vancomycin Trough 12.9 ug/ml (5-20) 02/16/25 05:35
[2025-02-18] MEDS: LOVENOX 100 MG SC ×2 (10:45→23:14)
--- NOTE | 2025-02-18 11:30 | W.PN.ID1 ---
Date of Service
Date of Service: February 18, 2025
Today's Communication
D/C IV antibiotic upon discharge
Assessment / Plan
1. Bilateral cellulitis lower legs with acute findings left lower leg with past history of cellulitis on the right with skin dryness but without acute findings at this time, decrease in erythema, scaling and odor on left
2. Peripheral vascular disease with current ultrasound revealing nonocclusive clotting of the femoral, popliteal, and peroneal vessels in the setting of lymphadenopathy
3. Patient currently receiving vancomycin with careful monitoring of renal function and vancomycin trough in setting of positive MRSA nares screen and wound cultures
Blood cultures with NGTD
Wound cultures with MRSA and GNR 4 species with culture source swab of open wound
Afebrile without leukocytosis
4. Targeted antibiotic for MRSA with empiric broad spectrum antibiotic in place for wound with decrease in leukocytosis, with antibiotic D/C upon dischage
5. Wound care team in place with daily dressing changes/ will need continued wound care upon discharge
The ID team will continue to follow with you
Chief Complaint
-: Cellulitis (with decreased discomfort, erythema,swelling left lower leg)
Subjective / Review of Systems
Review of Systems: No Fever, No Chills, No Headache, No Pharyngitis, No Stiff Neck, No Swollen Lymph Nodes, No Cough, No Sputum Production, No Chest Pain, No Palpitations, No Abdominal Pain, No Nausea, No Vomiting, No Diarrhea, No Joint Pain and
Other (Right lower leg cellulitis without osteomyelitis)
Vital Signs / Physical Exam
Vital Signs
Vital Signs
Temp Pulse Resp BP Pulse Ox
99.5 F 87 16 110/74 95
02/18/25 07:00 02/18/25 07:00 02/18/25 07:00 02/18/25 07:00 02/18/25 07:00
Physical Exam
Constitutional: No Acute Distress, Well Developed, Comfortable, Chronically Ill, Non-toxic and Obese
Head: Normocephalic
Eyes: Pupils Equal, Pupils Round, No Conjunctival Hemorrhage and Sclera Anicteric
Oropharyngeal: Benign
Cardiovascular: Regular Rate
Pulmonary: Clear and Non Labored
Gastrointestinal: Soft, Non Tender, Non Distended, Decreased Bowel Sounds, No Rebound and No Guarding (central adiposity)
Extremities: Edema and Erythema (cellulitis left lower leg with swelling, right lower leg with history of past cellulitis)
Skin: Warm and Dry (right lower leg with decreased erythema)
Wound: Other (right lower leg dressing in place ,being seen by wound care team)
Neurological: Awake, Alert, Oriented, AO x 3 and No Motor Deficits
Psychological: Calm
Lines: PIV
Objective Data
Lab Data
Lab Results
02/18/25 06:30
02/18/25 06:30
ESR 20 mm/hour (0-20) 02/14/25 06:16
PT 16.4 Sec (11.4-14.6) H 02/18/25 06:30
INR 1.29 02/18/25 06:30
APTT 33.3 Sec (23.4-35.0) 02/14/25 06:16
Estimated Creat Clear 79 ml/min 02/18/25 06:30
Lactic Acid 2.0 mmol/L (0.7-2.0) 02/13/25 16:41
Total Bilirubin 1.0 mg/dl (0.2-1.3) 02/15/25 06:23
AST 43 U/L (17-59) 02/15/25 06:23
ALT 41 U/L (0-50) 02/15/25 06:23
Alkaline Phosphatase 79 U/L (38-126) 02/15/25 06:23
Most recent labs reviewed.
Microbiology: Report Reviewed
Micro Results:
02/18/25 06:30 Blood Culture - Pending
Blood/Venous
02/17/25 18:40 Blood Culture - Pending
Blood/Venous
02/13/25 16:41 Blood Culture - Preliminary
Blood/Venous No Growth in 4 days- Final report to follow
02/13/25 19:38 Wound Culture - Final
Leg - Left Gram Stain - Final
02/13/25 19:38 Wound Culture - Final
Leg - Left Gram Stain - Final
02/13/25 19:38 Wound Culture - Final
Leg - Left Gram Stain - Final
02/14/25 00:00 MRSA Screen - Final
Nose Staph aureus MRSA
Care Review
Total Time Spent with Patient (in minutes): continue current care
[2025-02-18 11:41] LABS: Glucose - Point of Care 167 mg/dl (70-99)
--- NOTE | 2025-02-18 12:33 | W.PN.HOSP.TC ---
Today's Communication/Plan
-
see A/P
Assessment / Plan
Assessment / Plan
HPI: 69-year-old with past medical history only of prior pulmonary embolism status post thrombolysis, diet controlled elevated blood sugar but no diagnosis of diabetes; p/w worsening lesions in the left lower extremity.
Patient stated that he has had bilateral lower extremity swelling intermittently for several years. He started having cellulitis in his leg in 2020.
He reported onset of a saccular lesion in his lateral left lower extremity for several weeks. Then additional lesions developed in the anterior and posterior segments. He denies any injuries. He has been attempting to keep his leg elevated but is
now unable to do so due to the location of the lesion.
Patient stated that he has been taking ibuprofen every 5 hours to control the pain and feels like this has also been controlling fever. He denies having chills. He has not had any nausea or vomiting.
X-ray of the tibia-fibula and foot shows no fracture. Did not see any foreign body. Obvious large ulcerations extending into the subcutaneous layer, and no gas noted.
A/P
# LLE Cellulitis with Large ulcerations without drainage.
# Suspect venostasis dermatitis, possible pyoderma.
No deep tissue infection on xray, noted large ulcerations extending into the subcutaneous layer, no gas noted.
wound culture polymicrobial, Admission blood cultures negative,
cont IV vancomycin, added cefepime, cont both
Follow repeat blood cultures from 02/17 due to recurrent fever
ID on board , wound care on board
pain control
# Hyperglycemia due to untreated diabetes
A1c 10.5%
Started Insulin 70/30, adjusted to 12 units BID by DM DERRICK ENGINEER
Cont sliding scale insulin,
Pt declined metformin 500 bid due to previous severe GI S/E
appreciate DM DERRICK ENGINEER input
# Hyperlipidemia
LDL 117
started Lipitor 40 mg
# Mild transaminitis, suspect reactive, resolved
# Uncontrolled HTN
# HTN urgency, resolved
Started Labetalol 100 mg bid and lisinopril 5 mg
Monitor BP
# h/o PE s/p IVC filter and removal.
# LLE DVT
Not on AC due to cost/non-compliance. Unclear if provoked PE in 2019
LLE u/s showed non-occlusive thrombus of the within the femoral vein, popliteal vein and peroneal vein
on aspirin.
Cost of Eliquis and Xarelto both at around 600 dollar per month, which pt cannot afford
Cont therapeutic Lovenox for now
Heme on board for OAC recc, recc Coumadin
Cont Coumadin 5 mg HS and check daily INR , INR goal 2-3, ideally should reach close to 2 before discharge
DVT PPX - therapeutic Lovenox with bridging to Coumadin , daily INR
Code status - Full Code
DW RN
Anticipated Discharge: > 48 hours
Subjective/Interval History
-
Date of Service: February 18, 2025
Objective Data
-
Labs:
Laboratory Results
02/18/25
06:30
WBC 8.0
Hgb 13.6
Hct 40.5
Plt Count 217
PT 16.4 H
INR 1.29
Sodium 137
Potassium 4.1
Chloride 108 H
Carbon Dioxide 24
BUN 22 H
Creatinine 1.0
Glucose 167 H
Calcium 8.6
Vital Signs:
Vital Signs
Temp Pulse Resp BP Pulse Ox
37.5 C 87 16 110/74 95
02/18/25 07:00 02/18/25 07:00 02/18/25 07:00 02/18/25 07:00 02/18/25 07:00
I&O
02/17/25 02/18/25 02/19/25
06:59 06:59 06:59
Intake Total 1200 / 1200 1000 / 1000
Output Total 500 / 500
Balance 1200 / 1200 500 / 500
Review of Systems
-
History Source: Patient
Skin: Reports Other (LLE ulcers)
Physical Exam
-
General: Well Developed, Well Nourished, No Apparent Distress, Comfortable, Conversant and Obese; Negative Respiratory Distress
HEENT: Normocephalic, Atraumatic, Nose Appears Normal and Ears Appear Normal; Negative Oxygen
Respiratory: Clear to Auscultation and Non Labored Respirations; Negative Accessory Resp Muscle Use
Cardiac: Regular Rhythm and S1/S2
GI: Soft, Nontender, Nondistended and Normal Bowel Sounds
Skin: Ulcers (see wound care note) and Other (see wound care note)
Neuro: Awake, Alert, Oriented and AO x 3
Psych: Calm and Intact Judgement/Insight
Data Reviewed
-
Ultrasound: Report Reviewed by me
Labs: Labs Reviewed by me, Discussed with Patient and Discussed with Family
[2025-02-18 13:35] VITALS: BP 126/83; PULSE 92; O2SAT 95
[2025-02-18 15:00] VITALS: BP 113/68
[2025-02-18] MEDS: DILAUDID 0.5 MG IV (17:07)
[2025-02-18] MEDS: COUMADIN 5 MG PO (17:09)
[2025-02-18] MEDS: TYLENOL 650 MG PO (17:09)
[2025-02-18] MEDS: LIPITOR 40 MG PO (17:10)
[2025-02-18 17:18] LABS: Glucose - Point of Care 137 mg/dl (70-99)
[2025-02-18] MEDS: NOVOLOG FLEXPEN-LOW RESISTANCE SC (17:21)
[2025-02-18 22:04] LABS: Glucose - Point of Care 222 mg/dl (70-99)
[2025-02-18 23:29] VITALS: BP 123/81
[2025-02-19] MEDS: MAXIPIME 1000 MG IV ×2 (05:19→18:09)
[2025-02-19] MEDS: STERILE WATER FOR INJECTION 10 ML IV ×2 (05:20→18:10)
[2025-02-19] MEDS: VANCOCIN 275 MG IV ×2 (05:20→18:10)
[2025-02-19 07:00] VITALS: BP 127/81
[2025-02-19 07:05] LABS: Hematocrit 38.9 % (39.0-52.0); Hemoglobin 13.4 g/dL (13.0-18.0); Mean Corp Hgb Conc. 34.4 g/dL (33.0-37.0); Mean Corpuscular Volume 90.7 fL (80.0-94.0); Platelet Count 219 10^3/uL (130-400); Red Cell Dist. Width 13.3 % (11.5-14.5)
[2025-02-19 07:15] LABS: INR 1.46; PT 18.0 Sec (11.4-14.6)
[2025-02-19 07:28] LABS: Glucose - Point of Care 148 mg/dl (70-99)
[2025-02-19 07:37] LABS: Blood Urea Nitrogen 21 mg/dl (9-20); Calcium 8.8 mg/dl (8.4-10.2); Carbon Dioxide 25 mmol/L (22-30); Chloride 108 mmol/L (98-107); Estimated Creatinine Clearance 71 ml/min; Glucose 157 mg/dl (70-99); Potassium 4.3 mmol/L (3.5-5.1); Sodium 139 mmol/L (135-145); eGFR > 60.00
--- NOTE | 2025-02-19 07:52 | PHA.VAN.FU ---
Vancomycin Assessment / Plan
- Assessment
Renal Function: Stable (1.0->1.1 ( BUN stable))
WBC's are: WNL
In the past 24 hrs, patient has been: Febrile (101.6 - / @ 1500)
Concomitant Antimicrobials: cefepime
- Dosing Plan
Continue: vancomycin 1250 mg q12h
- Monitoring Plan
Level(s) appropriate: Recheck trough at minimum of weekly intervals, Repeat sooner for changes in renal function or clinical status
- Follow Up
Pharmacy will continue to follow.
Vancomycin Follow UP
- -
Patient Age: 69
Patient Sex: Male
Vancomycin Day #: 7
Indication: Skin And Soft Tissue
Requesting Provider: Dr. Soliz / Juliana
Pertinent Antimicrobial Allergies:
Sulfa allergy- unknown
Height / Weight:
Height 5 ft 6 in
Actual Weight 100.839 kg
Pertinent Past Medical History: BMI~36; DM
- Vital Signs / Lab Results
Temp Pulse Resp BP Pulse Ox
98.9 F 84 18 123/81 93
02/18/25 23:29 02/18/25 23:29 02/18/25 23:29 02/18/25 23:29 02/18/25 23:29
Lab Results - Hematology
02/17/25 02/18/25 02/19/25
06:02 06:30 06:52
WBC 11.1 H 8.0 7.2
Lab Results - Chemistry
02/17/25 02/18/25 02/19/25
06:02 06:30 06:52
BUN 18 22 H 21 H
Creatinine 1.2 1.0 1.1
Estimated Creat Clear 66 79 71
Microbiology Results
02/18/25 06:30 Blood Culture - Preliminary
Blood/Venous No Growth in 24 hours- Final report to follow
02/17/25 18:40 Blood Culture - Preliminary
Blood/Venous No Growth in 24 hours- Final report to follow
02/13/25 16:41 Blood Culture - Final
Blood/Venous No Growth - Final Report
Therapeutic Drug Monitoring
Vancomycin Peak 20.5 ug/ml (18-26) 02/15/25 22:15
Vancomycin Trough 12.9 ug/ml (5-20) 02/16/25 05:35
[2025-02-19] MEDS: TRANDATE 100 MG PO ×2 (09:13→20:49)
[2025-02-19] MEDS: NOVOLOG FLEXPEN-LOW RESISTANCE SC ×2 (09:13→17:37)
[2025-02-19] MEDS: ZESTRIL 5 MG PO (09:13)
[2025-02-19] MEDS: ASPIR LOW (ENTERIC COATED) 81 MG PO (09:14)
[2025-02-19] MEDS: NOVOLOG MIX 70/30 FLEXPEN 12 UNITS SC ×2 (09:15→18:09)
--- NOTE | 2025-02-19 11:39 | W.PN.ID1 ---
Date of Service
Date of Service: February 19, 2025
Today's Communication
Continue antibiotics.
Assessment / Plan
Left lower extremity venous stasis wounds
Lower extremity edema/lymphedema (?
Leukocytosis; improved
Left lower extremity nonocclusive DVT
Recommendations:
Continue with vancomycin, along with local wound care.
Follow Vanco levels closely to prevent nephrotoxicity.
Add lower extremity compressive modality (CINDY) to decrease edema.
Chief Complaint
-: Cellulitis (with decreased discomfort, erythema,swelling left lower leg)
Subjective / Review of Systems
Review of Systems: No Fever
Vital Signs / Physical Exam
Vital Signs
Vital Signs
Temp Pulse Resp BP Pulse Ox
99.1 F 84 18 121/81 92
02/19/25 07:00 02/19/25 09:13 02/19/25 07:00 02/19/25 09:13 02/19/25 07:00
Physical Exam
Constitutional: Comfortable and Non-toxic
Eyes: Sclera Anicteric
Cardiovascular: S1/S2; Negative S3/S4
Pulmonary: Non Labored
Extremities: Edema (LLE) and Venous Insufficiency (Left lower extremity)
Wound: Other (Multiple superficial wounds noted left lower extremity. Slough in the base. Minimal periwound erythema.)
Neurological: Awake and Alert
Psychological: Calm
Objective Data
Lab Data
Lab Results
02/19/25 06:52
02/19/25 06:52
ESR 20 mm/hour (0-20) 02/14/25 06:16
PT 18.0 Sec (11.4-14.6) H 02/19/25 06:52
INR 1.46 02/19/25 06:52
APTT 33.3 Sec (23.4-35.0) 02/14/25 06:16
Estimated Creat Clear 71 ml/min 02/19/25 06:52
Lactic Acid 2.0 mmol/L (0.7-2.0) 02/13/25 16:41
Total Bilirubin 1.0 mg/dl (0.2-1.3) 02/15/25 06:23
AST 43 U/L (17-59) 02/15/25 06:23
ALT 41 U/L (0-50) 02/15/25 06:23
Alkaline Phosphatase 79 U/L (38-126) 02/15/25 06:23
Most recent labs reviewed.
Micro Results:
02/18/25 06:30 Blood Culture - Preliminary
Blood/Venous No Growth in 24 hours- Final report to follow
02/17/25 18:40 Blood Culture - Preliminary
Blood/Venous No Growth in 24 hours- Final report to follow
02/13/25 16:41 Blood Culture - Final
Blood/Venous No Growth - Final Report
02/13/25 19:38 Wound Culture - Final
Leg - Left Gram Stain - Final
02/13/25 19:38 Wound Culture - Final
Leg - Left Gram Stain - Final
02/13/25 19:38 Wound Culture - Final
Leg - Left Gram Stain - Final
02/14/25 00:00 MRSA Screen - Final
Nose Staph aureus MRSA
[2025-02-19] MEDS: DILAUDID 0.5 MG IV (11:42)
[2025-02-19] MEDS: LOVENOX 100 MG SC (12:01)
[2025-02-19 12:28] LABS: Glucose - Point of Care 158 mg/dl (70-99)
[2025-02-19] MEDS: DAKIN'S SOLUTION 0.125% 1/4 STRENGTH 473 ML TOPICAL (12:42)
[2025-02-19] MEDS: NOVOLOG FLEXPEN-LOW RESISTANCE 1 UNITS SC (12:57)
--- NOTE | 2025-02-19 13:21 | W.PN.HOSP.TC ---
Today's Communication/Plan
-
Continue current plan
Assessment / Plan
Assessment / Plan
HPI:
69-year-old with past medical history of prior pulmonary embolism status post thrombolysis, diet controlled elevated blood sugar but no diagnosis of diabetes; p/w worsening lesions in the left lower extremity.
Patient stated that he has had bilateral lower extremity swelling intermittently for several years. He started having cellulitis in his leg in 2020.
He reported onset of a saccular lesion in his lateral left lower extremity for several weeks. Then additional lesions developed in the anterior and posterior segments. He denies any injuries. He has been attempting to keep his leg elevated but is
now unable to do so due to the location of the lesion. Patient stated that he has been taking ibuprofen every 5 hours to control the pain and feels like this has also been controlling fever. He denies having chills. He has not had any nausea or
vomiting. X-ray of the tibia-fibula and foot shows no fracture. Did not see any foreign body. Obvious large ulcerations extending into the subcutaneous layer, and no gas noted.
A/P
1. LLE Cellulitis with Large ulcerations without drainage.
Suspect venostasis dermatitis, possible pyoderma.
No deep tissue infection on xray, noted large ulcerations extending into the subcutaneous layer, no gas noted.
wound culture polymicrobial, Admission blood cultures negative,
cont IV vancomycin, added cefepime, cont both
Follow repeat blood cultures from 02/17 due to recurrent fever
ID consulted
wound care consulted
pain control as needed
2. Hyperglycemia due to untreated diabetes with A1c 10.5%
Started Insulin 70/30, adjusted to 12 units BID by DM IMPLEMENTATION COORDINATOR
Cont sliding scale insulin,
Pt declined metformin 500 bid due to previous severe GI S/E
appreciate DM IMPLEMENTATION COORDINATOR input
3. Hyperlipidemia with LDL 117
started Lipitor 40 mg
4. Mild transaminitis, suspect reactive, resolved
5. Uncontrolled HTN
HTN urgency, resolved
Started Labetalol 100 mg bid and lisinopril 5 mg
Monitor BP
6. h/o PE s/p IVC filter and removal.
7. LLE DVT
Not on AC due to cost/non-compliance. Unclear if provoked PE in 2019
LLE u/s showed non-occlusive thrombus of the within the femoral vein, popliteal vein and peroneal vein
on aspirin.
Cost of Eliquis and Xarelto both at around 600 dollar per month, which pt cannot afford
Cont therapeutic Lovenox for now
Heme on board for OAC recc, recc Coumadin
Cont Coumadin 5 mg HS and check daily INR , INR goal 2-3, ideally should reach close to 2 before discharge
DVT PPX - therapeutic Lovenox with bridging to Coumadin , daily INR
Code status - Full Code
Anticipated Discharge: > 48 hours
Subjective/Interval History
-
Date of Service: February 19, 2025
No new complaints
Objective Data
-
Labs:
Laboratory Results
02/19/25
06:52
WBC 7.2
Hgb 13.4
Hct 38.9 L
Plt Count 219
PT 18.0 H
INR 1.46
Sodium 139
Potassium 4.3
Chloride 108 H
Carbon Dioxide 25
BUN 21 H
Creatinine 1.1
Glucose 157 H
Calcium 8.8
Vital Signs:
Vital Signs
Temp Pulse Resp BP Pulse Ox
99.7 F 84 18 121/81 92
02/19/25 11:00 02/19/25 09:13 02/19/25 07:00 02/19/25 09:13 02/19/25 07:00
I&O
02/18/25 02/19/25 02/20/25
06:59 06:59 06:59
Intake Total 1000 / 1000 960 / 960
Output Total 500 / 500 350 / 350
Balance 500 / 500 610 / 610
Review of Systems
-
History Source: Patient
All other systems: Reviewed and negative
Physical Exam
-
General: Well Developed, Well Nourished, No Apparent Distress, Comfortable and Obese
HEENT: Normocephalic, Atraumatic, Moist Mucous Membranes, Nose Appears Normal and Ears Appear Normal
Respiratory: Clear to Auscultation
Cardiac: Regular Rhythm and S1/S2
GI: Soft, Nontender and Nondistended
Musculoskeletal: No Clubbing, No Cyanosis, Edema, Right Lower Extrem and Edema, Left Lower Extrem
Skin: Warm
Neuro: Awake, Alert and Oriented
Psych: Calm
Data Reviewed
-
Labs: Labs Reviewed by me
[2025-02-19 15:00] VITALS: BP 119/70
[2025-02-19 17:32] LABS: Glucose - Point of Care 147 mg/dl (70-99)
[2025-02-19] MEDS: LIPITOR 40 MG PO (18:08)
[2025-02-19] MEDS: COUMADIN 5 MG PO (18:13)
--- NOTE | 2025-02-19 19:36 | PTCARENOTE ---
patient medicated with PRN Dilaudid prior to wound care change today with good relief. LLE wounds with some sloughing. tolerating marquis wrap. tolerating diet, independent in room, vss, will continue to monitor.
[2025-02-19 21:45] LABS: Glucose - Point of Care 198 mg/dl (70-99)
[2025-02-19 23:54] VITALS: BP 126/84
[2025-02-20] MEDS: LOVENOX 100 MG SC ×3 (00:10→22:50)
[2025-02-20 05:05] VITALS: BMI 36.0
[2025-02-20 06:03] LABS: INR 1.56; PT 18.9 Sec (11.4-14.6)
[2025-02-20] MEDS: MAXIPIME 1000 MG IV ×2 (06:08→17:06)
[2025-02-20] MEDS: STERILE WATER FOR INJECTION 10 ML IV ×2 (06:09→17:06)
[2025-02-20] MEDS: VANCOCIN 275 MG IV ×2 (06:09→17:06)
[2025-02-20 06:14] LABS: Hematocrit 39.6 % (39.0-52.0); Hemoglobin 13.0 g/dL (13.0-18.0); Mean Corp Hgb Conc. 32.8 g/dL (33.0-37.0); Mean Corpuscular Volume 93.4 fL (80.0-94.0); Platelet Count 264 10^3/uL (130-400); Red Cell Dist. Width 13.2 % (11.5-14.5)
[2025-02-20 06:28] LABS: Blood Urea Nitrogen 20 mg/dl (9-20); Calcium 8.7 mg/dl (8.4-10.2); Carbon Dioxide 26 mmol/L (22-30); Chloride 105 mmol/L (98-107); Estimated Creatinine Clearance 72 ml/min; Glucose 131 mg/dl (70-99); Potassium 4.0 mmol/L (3.5-5.1); Sodium 139 mmol/L (135-145); eGFR > 60.00
[2025-02-20 07:00] VITALS: BP 152/89
[2025-02-20 07:55] LABS: Glucose - Point of Care 129 mg/dl (70-99)
[2025-02-20] MEDS: NOVOLOG FLEXPEN-LOW RESISTANCE SC ×2 (08:31→16:55)
[2025-02-20] MEDS: TRANDATE 100 MG PO ×2 (08:31→20:26)
[2025-02-20] MEDS: ASPIR LOW (ENTERIC COATED) 81 MG PO (08:31)
[2025-02-20] MEDS: ZESTRIL 5 MG PO (08:31)
[2025-02-20] MEDS: NOVOLOG MIX 70/30 FLEXPEN 12 UNITS SC ×2 (08:32→18:08)
[2025-02-20] MEDS: DAKIN'S SOLUTION 0.125% 1/4 STRENGTH 473 ML TOPICAL (08:33)
--- NOTE | 2025-02-20 08:51 | PHA.VAN.FU ---
Vancomycin Assessment / Plan
- Assessment
Renal Function: Stable
WBC's are: WNL
In the past 24 hrs, patient has been: Febrile (100.4 - 02/19 @1500)
Concomitant Antimicrobials: Cefepime
- Dosing Plan
Continue: vancomycin 1250 mg q12h
- Monitoring Plan
Level(s) appropriate: Recheck trough at minimum of weekly intervals, Repeat sooner for changes in renal function or clinical status
Next Level Due (Date): ~ 02/22
- Follow Up
Pharmacy will continue to follow.
Vancomycin Follow UP
- -
Patient Age: 69
Patient Sex: Male
Vancomycin Day #: 8
Indication: Skin And Soft Tissue
Requesting Provider: Dr. Soliz / Juliana
Pertinent Antimicrobial Allergies:
Sulfa allergy- unknown
Height / Weight:
Height 5 ft 6 in
Actual Weight 101.242 kg
Pertinent Past Medical History: BMI~36; DM
- Vital Signs / Lab Results
Temp Pulse Resp BP Pulse Ox
99.9 F 83 18 152/89 93
02/20/25 07:00 02/20/25 08:31 02/20/25 07:00 02/20/25 08:31 02/20/25 07:00
Lab Results - Hematology
02/18/25 02/19/25 02/20/25
06:30 06:52 04:50
WBC 8.0 7.2 8.8
Lab Results - Chemistry
02/18/25 02/19/25 02/20/25
06:30 06:52 04:50
BUN 22 H 21 H 20
Creatinine 1.0 1.1 1.1
Estimated Creat Clear 79 71 72
Microbiology Results
02/18/25 06:30 Blood Culture - Preliminary
Blood/Venous No Growth in 48 hours- Final report to follow
02/17/25 18:40 Blood Culture - Preliminary
Blood/Venous No Growth in 48 hours- Final report to follow
02/13/25 16:41 Blood Culture - Final
Blood/Venous No Growth - Final Report
Therapeutic Drug Monitoring
Vancomycin Peak 20.5 ug/ml (18-26) 02/15/25 22:15
Vancomycin Trough 12.9 ug/ml (5-20) 02/16/25 05:35
--- NOTE | 2025-02-20 11:58 | W.PN.HOSP.TC ---
Today's Communication/Plan
-
stable. Awaiting finalization of blood culture results.
Assessment / Plan
Assessment / Plan
HPI:
69-year-old with past medical history of prior pulmonary embolism status post thrombolysis, diet controlled elevated blood sugar but no diagnosis of diabetes; p/w worsening lesions in the left lower extremity.
Patient stated that he has had bilateral lower extremity swelling intermittently for several years. He started having cellulitis in his leg in 2020.
He reported onset of a saccular lesion in his lateral left lower extremity for several weeks. Then additional lesions developed in the anterior and posterior segments. He denies any injuries. He has been attempting to keep his leg elevated but is
now unable to do so due to the location of the lesion. Patient stated that he has been taking ibuprofen every 5 hours to control the pain and feels like this has also been controlling fever. He denies having chills. He has not had any nausea or
vomiting. X-ray of the tibia-fibula and foot shows no fracture. Did not see any foreign body. Obvious large ulcerations extending into the subcutaneous layer, and no gas noted.
A/P
1. LLE Cellulitis with Large ulcerations without drainage.
Suspect venostasis dermatitis, possible pyoderma.
No deep tissue infection on xray, noted large ulcerations extending into the subcutaneous layer, no gas noted.
wound culture polymicrobial, Admission blood cultures negative,
cont IV vancomycin, added cefepime, cont both
Follow repeat blood cultures from 02/17 due to recurrent fever
So far no growth x 48 hours
ID to help decide when OK to stop IV abx, switch to po, and therefore discharge home
ID consulted
wound care consulted
pain control as needed
2. Hyperglycemia due to untreated diabetes with A1c 10.5%
Started Insulin 70/30, adjusted to 12 units BID by DM HOGS[facility] HAND
Cont sliding scale insulin, adjust as needed
Pt declined metformin 500 bid due to previous severe GI S/E
appreciate DM [employer] [employer] input
3. Hyperlipidemia with LDL 117
started Lipitor 40 mg
4. Mild transaminitis, suspect reactive, resolved
5. Uncontrolled HTN
HTN urgency, resolved
Started Labetalol 100 mg bid and lisinopril 5 mg
Monitor BP
6. h/o PE s/p IVC filter and removal.
7. LLE DVT
Not on AC due to cost/non-compliance. Unclear if provoked PE in 2019
LLE u/s showed non-occlusive thrombus of the within the femoral vein, popliteal vein and peroneal vein
on aspirin.
Cost of Eliquis and Xarelto both at around 600 dollar per month, which pt cannot afford
Cont therapeutic Lovenox for now
Heme on board for OAC recc, recc Coumadin
Cont Coumadin 5 mg HS and check daily INR , INR goal 2-3, ideally should reach close to 2 before discharge
INR today 1.56, if not higher tomorrow, increase coumadin
DVT PPX - therapeutic Lovenox with bridging to Coumadin , daily INR
Code status - Full Code
Anticipated Discharge: 24 - 48 hours
Subjective/Interval History
-
Date of Service: February 20, 2025
No new problems
Objective Data
-
Labs:
Laboratory Results
02/20/25
04:50
WBC 8.8
Hgb 13.0
Hct 39.6
Plt Count 264 D
PT 18.9 H
INR 1.56
Sodium 139
Potassium 4.0
Chloride 105
Carbon Dioxide 26
BUN 20
Creatinine 1.1
Glucose 131 H
Calcium 8.7
Vital Signs:
Vital Signs
Temp Pulse Resp BP Pulse Ox
99.3 F 83 18 152/89 93
02/20/25 11:00 02/20/25 08:31 02/20/25 07:00 02/20/25 08:31 02/20/25 07:00
I&O
02/19/25 02/20/25 02/21/25
06:59 06:59 06:59
Intake Total 960 / 960 1385 / 1385
Output Total 350 / 350 500 / 500
Balance 610 / 610 885 / 885
Review of Systems
-
History Source: Patient
All other systems: Reviewed and negative
Physical Exam
-
General: Well Developed, Well Nourished, No Apparent Distress, Comfortable and Obese
HEENT: Normocephalic, Atraumatic, Nose Appears Normal and Ears Appear Normal
Respiratory: Clear to Auscultation
Cardiac: Regular Rhythm and S1/S2
GI: Soft, Nontender and Nondistended
Musculoskeletal: No Clubbing, No Cyanosis, Edema, Right Lower Extrem and Edema, Left Lower Extrem
Skin: Warm and Dry
Neuro: Awake, Alert, Oriented and AO x 3
Psych: Calm
Data Reviewed
-
Labs: Labs Reviewed by me
[2025-02-20 12:07] LABS: Glucose - Point of Care 152 mg/dl (70-99)
[2025-02-20] MEDS: NOVOLOG FLEXPEN-LOW RESISTANCE 1 UNITS SC (12:36)
[2025-02-20 15:00] VITALS: BP 128/82
[2025-02-20] MEDS: DILAUDID 0.5 MG IV (16:06)
[2025-02-20 16:55] LABS: Glucose - Point of Care 120 mg/dl (70-99)
[2025-02-20] MEDS: LIPITOR 40 MG PO (17:06)
[2025-02-20 21:46] LABS: Glucose - Point of Care 167 mg/dl (70-99)
[2025-02-20 23:00] VITALS: BP 122/77
[2025-02-21] MEDS: VANCOCIN 275 MG IV (06:01)
[2025-02-21] MEDS: STERILE WATER FOR INJECTION 10 ML IV (06:01)
[2025-02-21] MEDS: MAXIPIME 1000 MG IV (06:02)
[2025-02-21 07:00] VITALS: BP 126/84
[2025-02-21 07:08] LABS: Hematocrit 40.8 % (39.0-52.0); Hemoglobin 13.2 g/dL (13.0-18.0); Mean Corp Hgb Conc. 32.4 g/dL (33.0-37.0); Mean Corpuscular Volume 92.9 fL (80.0-94.0); Platelet Count 253 10^3/uL (130-400); Red Cell Dist. Width 13.1 % (11.5-14.5)
[2025-02-21 07:21] LABS: INR 1.52; PT 18.5 Sec (11.4-14.6)
--- NOTE | 2025-02-21 07:45 | W.PN.HOSP.TC ---
Today's Communication/Plan
-
INR remains subtherapeutic, lower than yesterday at 1.52. Appears that Coumadin yesterday was missed.
Resume Coumadin today
No need for antibiotics
Continue wound care
Assessment / Plan
Assessment / Plan
Physical Exam
General: Well Developed, Well Nourished, No Apparent Distress, Comfortable and Obese
HEENT: Normocephalic, Atraumatic, Nose Appears Normal and Ears Appear Normal
Respiratory: Clear to Auscultation Bilaterally
Cardiac: Regular Rhythm and S1/S2
GI: Soft, Nontender and Nondistended. Positive bowel sounds.
Musculoskeletal: No Cyanosis. Edema, Right Lower Extremity; and Edema, Left Lower Extremity
Skin: Warm and Dry
Neuro: Awake, Alert, Oriented and AO x 3
Psych: Calm
Assessment/Plan
69-year-old male with past medical history of prior pulmonary embolism status post thrombolysis, diet controlled elevated blood sugar but no diagnosis of diabetes mellitus; p/w worsening lesions in the left lower extremity.
Patient stated that he has had bilateral lower extremity swelling intermittently for several years. He started having cellulitis in his leg in 2020.
He reported onset of a saccular lesion in his lateral left lower extremity for several weeks. Then additional lesions developed in the anterior and posterior segments. He denied any injuries. He had been attempting to keep his leg elevated but is
now unable to do so due to the location of the lesion. Patient stated that he had been taking Ibuprofen every 5 hours to control the pain and feels like this has also been controlling fever. He denied having chills. He has not had any nausea or
vomiting. X-ray of the tibia-fibula and foot shows no fracture. Did not see any foreign body. Obvious large ulcerations extending into the subcutaneous layer, and no gas noted.
A/P
1. Possible LLE Cellulitis with Large ulcerations without drainage.
Left lower extremity venous stasis wounds
Lower extremity edema/lymphedema (?
Suspect venostasis dermatitis, possible pyoderma.
No deep tissue infection on xray, noted large ulcerations extending into the subcutaneous layer, no gas noted.
wound culture polymicrobial, Admission blood cultures negative,
Stop antibiotics as per ID
Follow repeat blood cultures from 02/17 due to recurrent fever
So far no growth
Continue with local care to the left lower extremity wounds, along with compressive modalities (Feliz)
ID consulted
wound care consulted
pain control as needed
Will need continued follow-up in the wound care center with Dr. Saez
2. Hyperglycemia due to untreated diabetes with A1c 10.5%
Started Insulin 70/30, adjusted to 12 units BID by DM BRUSH SANDER
Cont sliding scale insulin, adjust as needed
Pt declined metformin 500 bid due to previous severe GI S/E
appreciate DM [employer]ER input
3. Hyperlipidemia with LDL 117
started Lipitor 40 mg
4. Mild transaminitis, suspect reactive, resolved
5. Uncontrolled HTN
HTN urgency, resolved
Started Labetalol 100 mg bid and lisinopril 5 mg
Monitor BP
6. h/o PE s/p IVC filter and removal.
7. LLE DVT
Not on AC due to cost/non-compliance. Unclear if provoked PE in 2019
LLE u/s showed non-occlusive thrombus of the within the femoral vein, popliteal vein and peroneal vein
on aspirin.
Cost of Eliquis and Xarelto both at around 600 dollar per month, which pt cannot afford
Cont therapeutic Lovenox for now
Per Dr. Dietrich, Heme on board for OAC recc, recc Coumadin
Cont Coumadin 5 mg HS and check daily INR -- Coumadin was not given on 02/20/25 -- INR goal 2-3, ideally should reach close to 2 before discharge
INR today 1.52
DVT Prophylaxis: therapeutic Lovenox with bridging to Coumadin , daily INR
Code Status: Full Code
Anticipated Discharge: Within 24 hours
Subjective/Interval History
-
Date of Service: February 21, 2025
Patient was seen and examined. He denied any new symptoms or complaints.
Objective Data
-
Labs:
Laboratory Results
02/21/25
06:53
WBC 9.4
Hgb 13.2
Hct 40.8
Plt Count 253
PT 18.5 H
INR 1.52
Sodium Pending
Potassium Pending
Chloride Pending
Carbon Dioxide Pending
BUN Pending
Creatinine Pending
Glucose Pending
Calcium Pending
Vital Signs:
Vital Signs
Temp Pulse Resp BP Pulse Ox
98.5 F 85 20 122/77 95
02/20/25 23:00 02/20/25 23:00 02/20/25 23:00 02/20/25 23:00 02/20/25 23:00
I&O
02/20/25 02/21/25 02/22/25
06:59 06:59 06:59
Intake Total 1385 / 1385 1680 / 1680
Output Total 500 / 500 1200 / 1200
Balance 885 / 885 480 / 480
[2025-02-21 08:04] LABS: Glucose - Point of Care 136 mg/dl (70-99)
[2025-02-21] MEDS: NOVOLOG FLEXPEN-LOW RESISTANCE SC ×2 (08:28→16:34)
[2025-02-21] MEDS: ASPIR LOW (ENTERIC COATED) 81 MG PO (08:39)
[2025-02-21] MEDS: ZESTRIL 5 MG PO (08:39)
[2025-02-21] MEDS: NOVOLOG MIX 70/30 FLEXPEN 12 UNITS SC ×2 (08:39→17:36)
[2025-02-21] MEDS: TRANDATE 100 MG PO ×2 (08:39→20:30)
[2025-02-21] MEDS: DAKIN'S SOLUTION 0.125% 1/4 STRENGTH 473 ML TOPICAL (08:42)
--- NOTE | 2025-02-21 08:45 | PN.DE.MGMTRT ---
Insulin Management
- -
02/21/2025: Diabetes Management Follow up
Patient admitted 02/13 with pain swelling and discharge from multiple wounds LLE. PMH: HTN, T2DM, Pulmonary Embolism, BLE swelling for several years. Prior to admission was taking no medication for diabetes. A1C 10.5%, Cr 1, eGFR > 60.
States: 'family history of diabetes so I tried to watch what I eat'. States his primary doctor started him on metformin, years back, but it did not agree with him. He admits he has not been to a doctor in over a year.
Glucose on admission 305
Patient is awake alert and oriented, sitting up in bed, able to discuss diabetes care. Insulin regime was switched to 70/30 due to cost.
02/20 premeal range 120 to 152. / Fasting glucose 136.
Will make no changes to current 70/30 dose, continue 12 units BID. Pt declined Metformin, states he had severe GI adverse reactions.
Discussed with nurse. Will cont to follow.
Recommended [employer] meter as test strips will also be more affordable.
Diabetes Nurse Educator has instructed patient on prep and self injection for 70/30. Request all injections be administered by patient with nursing supervision. Home pen needles provided.
Patient states CM mentioned working on getting prescription coverage.
Diabetes History
- -
Type of Diabetes: 2 requiring insulin
Pre-Admission Diabetes Regimen
Lab Results
Hemoglobin A1c 10.5 % (4.0-5.6) H 02/14/25 06:16
Insulin Pump Settings
IP Diabetes Regimen
02/20/25 02/20/25 02/20/25
12:05 16:53 21:44
POC Glucose 152 H 120 H 167 H
02/21/25
08:03
POC Glucose 136 H
Meal type: Dinner
Meal type: Lunch
Meal type: Breakfast
Amount consumed: 100%
Amount consumed: 100%
Amount consumed: 100%
Patient Education
[2025-02-21 09:20] LABS: Blood Urea Nitrogen 19 mg/dl (9-20); Calcium 8.7 mg/dl (8.4-10.2); Carbon Dioxide 23 mmol/L (22-30); Chloride 107 mmol/L (98-107); Estimated Creatinine Clearance 79 ml/min; Glucose 139 mg/dl (70-99); Potassium 4.2 mmol/L (3.5-5.1); Sodium 137 mmol/L (135-145); eGFR > 60.00
[2025-02-21] MEDS: DILAUDID 0.5 MG IV (09:27)
--- NOTE | 2025-02-21 09:27 | PHA.VAN.FU ---
Vancomycin Assessment / Plan
- Assessment
Renal Function: Stable
WBC's are: WNL
In the past 24 hrs, patient has been: Afebrile
Concomitant Antimicrobials: CEFEPIME
- Dosing Plan
Continue: 1250mg Q12H
- Monitoring Plan
Random Level: on 02/22 with morning labs to make sure no changes need to be made
- Follow Up
Pharmacy will continue to follow.
Vancomycin Follow UP
- -
Patient Age: 69
Patient Sex: Male
Vancomycin Day #: 9
Indication: Skin And Soft Tissue
Requesting Provider: Dr. Soliz / Juliana
Pertinent Antimicrobial Allergies:
Sulfa allergy- unknown
Height / Weight:
Height 5 ft 6 in
Actual Weight 101.242 kg
Pertinent Past Medical History: BMI~36; DM
- Vital Signs / Lab Results
Temp Pulse Resp BP Pulse Ox
98.5 F 81 19 126/84 95
02/21/25 07:00 02/21/25 08:39 02/21/25 07:00 02/21/25 08:39 02/21/25 07:00
Lab Results - Hematology
02/19/25 02/20/25 02/21/25
06:52 04:50 06:53
WBC 7.2 8.8 9.4
Lab Results - Chemistry
02/19/25 02/20/25 02/21/25
06:52 04:50 06:53
BUN 21 H 20 19
Creatinine 1.1 1.1 1.0
Estimated Creat Clear 71 72 79
Microbiology Results
02/18/25 06:30 Blood Culture - Preliminary
Blood/Venous No Growth in 72 hours- Final report to follow
02/17/25 18:40 Blood Culture - Preliminary
Blood/Venous No Growth in 72 hours- Final report to follow
Therapeutic Drug Monitoring
Vancomycin Peak 20.5 ug/ml (18-26) 02/15/25 22:15
Vancomycin Trough 12.9 ug/ml (5-20) 02/16/25 05:35
--- NOTE | 2025-02-21 11:12 | WOUNDNOTE ---
WO RN note: Patient's LLE wounds service cleaner, LLE redness resolving and edema less compared to photos from last week. Patient c/o severe pain during dressing removal. LLE dressing changed with help from [employer] RN student Cassandra Carranza and Misty vargas Ace
wrap applied. Dr. Summers and Dr. Sr agreeable to change in wound care. LLE elevated on pillow. Coccyx dull red and intact. Instructed patient pressure injury prevention measures. Care plan and discharged instructions to be updated. Plan is
home with when discharged. Reviewed wound care with patient. He lives with his girlfriend.
--- NOTE | 2025-02-21 11:24 | W.PN.ID1 ---
Date of Service
Date of Service: February 21, 2025
Today's Communication
Discontinue antibiotics.
Assessment / Plan
Left lower extremity venous stasis wounds
Lower extremity edema/lymphedema (?
Leukocytosis; improved
Left lower extremity nonocclusive DVT
Recommendations:
Erythema improved.
Wounds also improved.
Continue with local care to the left lower extremity wounds, along with compressive modalities (Feliz)
Discontinue further vancomycin/cefepime
Patient will need continued follow-up in the wound care center.
����������������������������������������������������������
Chief Complaint
-: Other (LLE wounds)
Subjective / Review of Systems
Review of Systems: No Fever and No Chills
Vital Signs / Physical Exam
Vital Signs
Vital Signs
Temp Pulse Resp BP Pulse Ox
98.5 F 81 19 126/84 95
02/21/25 07:00 02/21/25 08:39 02/21/25 07:00 02/21/25 08:39 02/21/25 07:00
Physical Exam
Constitutional: Comfortable and Non-toxic
Eyes: Sclera Anicteric
Cardiovascular: S1/S2; Negative S3/S4
Pulmonary: Non Labored
Extremities: Edema (LLE) and Venous Insufficiency (Left lower extremity)
Wound: Other (Multiple superficial wounds noted left lower extremity. Slough in the base. Minimal periwound erythema.)
Neurological: Awake and Alert
Psychological: Calm
Objective Data
Lab Data
Lab Results
02/21/25 06:53
02/21/25 06:53
ESR 20 mm/hour (0-20) 02/14/25 06:16
PT 18.5 Sec (11.4-14.6) H 02/21/25 06:53
INR 1.52 02/21/25 06:53
APTT 33.3 Sec (23.4-35.0) 02/14/25 06:16
Estimated Creat Clear 79 ml/min 02/21/25 06:53
Lactic Acid 2.0 mmol/L (0.7-2.0) 02/13/25 16:41
Total Bilirubin 1.0 mg/dl (0.2-1.3) 02/15/25 06:23
AST 43 U/L (17-59) 02/15/25 06:23
ALT 41 U/L (0-50) 02/15/25 06:23
Alkaline Phosphatase 79 U/L (38-126) 02/15/25 06:23
Most recent labs reviewed.
Micro Results:
02/18/25 06:30 Blood Culture - Preliminary
Blood/Venous No Growth in 72 hours- Final report to follow
02/17/25 18:40 Blood Culture - Preliminary
Blood/Venous No Growth in 72 hours- Final report to follow
02/13/25 16:41 Blood Culture - Final
Blood/Venous No Growth - Final Report
02/13/25 19:38 Wound Culture - Final
Leg - Left Gram Stain - Final
02/13/25 19:38 Wound Culture - Final
Leg - Left Gram Stain - Final
02/13/25 19:38 Wound Culture - Final
Leg - Left Gram Stain - Final
02/14/25 00:00 MRSA Screen - Final
Nose Staph aureus MRSA
Care Review
Plan reviewed with: Nurse (Wound care nurse)
[2025-02-21] MEDS: LOVENOX 100 MG SC (11:44)
[2025-02-21 12:47] LABS: Glucose - Point of Care 192 mg/dl (70-99)
[2025-02-21] MEDS: NOVOLOG FLEXPEN-LOW RESISTANCE 1 UNITS SC (12:48)
--- NOTE | 2025-02-21 13:38 | CM ---
Patient seen at bedside
IMM explained & signed
tt from hospitalist discharge today
PT rec HH
[facility] and accepted
PLAN: home with [facility]
SO or friend to transport
[2025-02-21 15:00] VITALS: BP 142/86
[2025-02-21 16:30] LABS: Glucose - Point of Care 144 mg/dl (70-99)
[2025-02-21] MEDS: LIPITOR 40 MG PO (17:35)
[2025-02-21] MEDS: COUMADIN 5 MG PO (17:36)
[2025-02-21 21:10] LABS: Glucose - Point of Care 183 mg/dl (70-99)
[2025-02-21 23:00] VITALS: BP 118/66
[2025-02-21] MEDS: LOVENOX SC (23:20)
[2025-02-22 06:20] LABS: Hematocrit 44.0 % (39.0-52.0); Hemoglobin 14.2 g/dL (13.0-18.0); Mean Corp Hgb Conc. 32.3 g/dL (33.0-37.0); Mean Corpuscular Volume 93.0 fL (80.0-94.0); Platelet Count 308 10^3/uL (130-400); Red Cell Dist. Width 13.1 % (11.5-14.5)
[2025-02-22 06:22] LABS: INR 1.47; PT 18.1 Sec (11.4-14.6)
[2025-02-22 06:38] LABS: Blood Urea Nitrogen 20 mg/dl (9-20); Calcium 8.9 mg/dl (8.4-10.2); Carbon Dioxide 26 mmol/L (22-30); Chloride 106 mmol/L (98-107); Estimated Creatinine Clearance 79 ml/min; Glucose 152 mg/dl (70-99); Potassium 4.3 mmol/L (3.5-5.1); Sodium 140 mmol/L (135-145); eGFR > 60.00
[2025-02-22 07:00] VITALS: BP 127/78
[2025-02-22 07:34] LABS: Glucose - Point of Care 147 mg/dl (70-99)
[2025-02-22] MEDS: NOVOLOG FLEXPEN-LOW RESISTANCE SC (07:34)
--- NOTE | 2025-02-22 08:09 | PN.DE.MGMTRT ---
Insulin Management
- -
02/22/2025: Diabetes Management Follow up
Patient admitted 02/13 with pain swelling and discharge from multiple wounds LLE. PMH: HTN, T2DM, Pulmonary Embolism, BLE swelling for several years. Prior to admission was taking no medication for diabetes. A1C 10.5%, Cr 1, eGFR > 60.
States: 'family history of diabetes so I tried to watch what I eat'. States his primary doctor started him on metformin, years back, but it did not agree with him. He admits he has not been to a doctor in over a year.
Glucose on admission 305
Patient is awake alert and oriented, sitting up in bed, able to discuss diabetes care. Insulin regime was switched to 70/30 due to cost.
/ premeal range 136 to 183. 7/1 Fasting glucose 152.
Will make no changes to current 70/30 dose, continue 12 units BID. Pt declined Metformin, states he had severe GI adverse reactions.
Discussed with nurse. Will cont to follow.
Recommended [employer] meter as test strips will also be more affordable.
Diabetes Nurse Educator has instructed patient on prep and self injection for 70/30. Request all injections be administered by patient with nursing supervision. Home pen needles provided.
Patient states CM mentioned working on getting prescription coverage.
Diabetes History
- -
Type of Diabetes: 2 requiring insulin
Pre-Admission Diabetes Regimen
02/21/25 02/22/25
06:53 05:31
Creatinine 1.0 1.0
Lab Results
Hemoglobin A1c 10.5 % (4.0-5.6) H 02/14/25 06:16
Insulin Pump Settings
IP Diabetes Regimen
02/21/25 02/21/25 02/21/25
06:53 12:45 16:29
Glucose 139 H
POC Glucose 192 H 144 H
02/21/25 02/22/25 02/22/25
21:09 05:31 07:33
Glucose 152 H
POC Glucose 183 H 147 H
Meal type: Dinner
Meal type: Lunch
Meal type: Breakfast
Amount consumed: 100%
Amount consumed: 100%
Amount consumed: 100%
Patient Education
[2025-02-22] MEDS: TRANDATE 100 MG PO ×2 (08:19→20:59)
[2025-02-22] MEDS: ZESTRIL 5 MG PO (08:20)
[2025-02-22] MEDS: DAKIN'S SOLUTION 0.125% 1/4 STRENGTH 473 ML TOPICAL (08:20)
[2025-02-22] MEDS: ASPIR LOW (ENTERIC COATED) 81 MG PO (08:20)
[2025-02-22] MEDS: HYDROPHOR 1 APPLIC TOPICAL (08:20)
[2025-02-22] MEDS: SANTYL OINTMENT 1 APPLIC TOPICAL (08:20)
[2025-02-22] MEDS: NOVOLOG MIX 70/30 FLEXPEN 12 UNITS SC ×2 (08:59→17:25)
--- NOTE | 2025-02-22 09:10 | W.PN.ID1 ---
Date of Service
Date of Service: February 22, 2025
Today's Communication
Continue off antibiotics with close observation.
Assessment / Plan
Left lower extremity venous stasis wounds
Lower extremity edema/lymphedema (?chronic)
Leukocytosis; improved
Left lower extremity nonocclusive DVT
Recommendations:
Erythema improved.
Wounds also improved.
Continue with local care to the left lower extremity wounds, along with compressive modalities (Feliz)
Vancomycin/cefepime previously DC'd. Observe off antibiotics.
Patient will need continued follow-up in the wound care center.
����������������������������������������������������������
Chief Complaint
-: Other (LLE wounds)
Subjective / Review of Systems
Patient seen and examined. Reports marked improvement/resolution of left lower extremity pain. Currently he reports that the leg feels 'itchy'. No difficulty with antibiotics.
Review of Systems: No Fever and No Chills
Vital Signs / Physical Exam
Vital Signs
Vital Signs
Temp Pulse Resp BP Pulse Ox
98.3 F 82 19 127/78 94
02/22/25 07:00 02/22/25 08:19 02/22/25 07:00 02/22/25 08:19 02/22/25 07:00
Physical Exam
Constitutional: Comfortable and Non-toxic
Eyes: Sclera Anicteric
Cardiovascular: S1/S2; Negative S3/S4
Pulmonary: Non Labored
Extremities: Edema (LLE) and Venous Insufficiency (Left lower extremity)
Wound: Other (Multiple superficial wounds noted left lower extremity. Slough in the base. Minimal periwound erythema.)
Neurological: Awake and Alert
Psychological: Calm
Objective Data
Lab Data
Lab Results
02/22/25 05:31
02/22/25 05:31
ESR 20 mm/hour (0-20) 02/14/25 06:16
PT 18.1 Sec (11.4-14.6) H 02/22/25 05:31
INR 1.47 02/22/25 05:31
APTT 33.3 Sec (23.4-35.0) 02/14/25 06:16
Estimated Creat Clear 79 ml/min 02/22/25 05:31
Lactic Acid 2.0 mmol/L (0.7-2.0) 02/13/25 16:41
Total Bilirubin 1.0 mg/dl (0.2-1.3) 02/15/25 06:23
AST 43 U/L (17-59) 02/15/25 06:23
ALT 41 U/L (0-50) 02/15/25 06:23
Alkaline Phosphatase 79 U/L (38-126) 02/15/25 06:23
Most recent labs reviewed.
Micro Results:
02/18/25 06:30 Blood Culture - Preliminary
Blood/Venous No Growth in 4 days- Final report to follow
02/17/25 18:40 Blood Culture - Preliminary
Blood/Venous No Growth in 4 days- Final report to follow
02/13/25 16:41 Blood Culture - Final
Blood/Venous No Growth - Final Report
02/13/25 19:38 Wound Culture - Final
Leg - Left Gram Stain - Final
02/13/25 19:38 Wound Culture - Final
Leg - Left Gram Stain - Final
02/13/25 19:38 Wound Culture - Final
Leg - Left Gram Stain - Final
02/14/25 00:00 MRSA Screen - Final
Nose Staph aureus MRSA
[2025-02-22] MEDS: LOVENOX 100 MG SC ×2 (10:33→22:27)
[2025-02-22 11:50] LABS: Glucose - Point of Care 183 mg/dl (70-99)
[2025-02-22] MEDS: NOVOLOG FLEXPEN-LOW RESISTANCE 1 UNITS SC ×2 (13:32→17:25)
[2025-02-22 15:00] VITALS: BP 110/71
--- NOTE | 2025-02-22 15:29 | W.PN.HOSP.TC ---
Today's Communication/Plan
-
INR decreasing
Increased dose of Coumadin 7.5 mg today, followed by the usual dose of 5 mg daily around 6 pm
Assessment / Plan
Assessment / Plan
Physical Exam
General: Well Developed, Well Nourished, No Apparent Distress, Comfortable and Obese
HEENT: Normocephalic, Atraumatic, Nose Appears Normal and Ears Appear Normal
Respiratory: Clear to Auscultation Bilaterally
Cardiac: Regular Rhythm and S1/S2
GI: Soft, Nontender and Nondistended. Positive bowel sounds.
Musculoskeletal: No Cyanosis. Edema, Right Lower Extremity; and Edema, Left Lower Extremity
Skin: Warm and Dry
Neuro: Awake, Alert, Oriented and AO x 3
Psych: Calm
Assessment/Plan
69-year-old male with past medical history of prior pulmonary embolism status post thrombolysis, diet controlled elevated blood sugar but no diagnosis of diabetes mellitus; p/w worsening lesions in the left lower extremity.
Patient stated that he has had bilateral lower extremity swelling intermittently for several years. He started having cellulitis in his leg in 2020.
He reported onset of a saccular lesion in his lateral left lower extremity for several weeks. Then additional lesions developed in the anterior and posterior segments. He denied any injuries. He had been attempting to keep his leg elevated but is
now unable to do so due to the location of the lesion. Patient stated that he had been taking Ibuprofen every 5 hours to control the pain and feels like this has also been controlling fever. He denied having chills. He has not had any nausea or
vomiting. X-ray of the tibia-fibula and foot shows no fracture. Did not see any foreign body. Obvious large ulcerations extending into the subcutaneous layer, and no gas noted.
A/P
1. Possible LLE Cellulitis with Large ulcerations without drainage.
Left lower extremity venous stasis wounds
Lower extremity edema/lymphedema (?
Suspect venostasis dermatitis, possible pyoderma.
No deep tissue infection on xray, noted large ulcerations extending into the subcutaneous layer, no gas noted.
wound culture polymicrobial, Admission blood cultures negative,
Antibiotics STOPPED as per ID
Follow repeat blood cultures from 02/17 due to recurrent fever -- last fever was 02/19/25
So far no growth
Continue with local care to the left lower extremity wounds, along with compressive modalities (CINDY)
ID consulted
Wound care consulted
Pain control as needed
Will need continued follow-up in the wound care center with Dr. Saez
2. Hyperglycemia due to untreated diabetes with A1c 10.5%
Started Insulin 70/30, adjusted to 12 units BID by DM CUSTOMER ACCOUNTS ADVISOR -- glucose well-controlled
Cont sliding scale insulin, adjust as needed
Pt declined metformin 500 bid due to previous severe GI S/E
appreciate DM CUSTOMER ACCOUNTS ADVISOR input
3. Hyperlipidemia with LDL 117
Continue newly started Lipitor 40 mg
4. Mild transaminitis, suspect reactive, resolved
5. Uncontrolled HTN
HTN urgency, resolved
Started Labetalol 100 mg bid and lisinopril 5 mg
Monitor BP
6. h/o PE s/p IVC filter and removal.
7. LLE DVT
Not on AC due to cost/non-compliance. Unclear if provoked PE in 2019
LLE u/s showed non-occlusive thrombus of the within the femoral vein, popliteal vein and peroneal vein
on aspirin.
Cost of Eliquis and Xarelto both at around 600 dollar per month, which pt cannot afford
Cont therapeutic Lovenox for now
Per Dr. Dietrich, Heme was on board for OAC recc, recc Coumadin
Cont Coumadin 5 mg HS and check daily INR -- Coumadin was not given on 02/20/25 -- INR goal 2-3, ideally should reach close to 2 before discharge
INR today 1.47 (lower than yesterday)
Increased dose of Coumadin 7.5 to be given this evening, followed by the usual dose of 5 mg every evening
DVT Prophylaxis: therapeutic Lovenox with bridging to Coumadin , daily INR
Code Status: Full Code
Anticipated Discharge: 24 - 48 hours
Subjective/Interval History
-
Date of Service: February 22, 2025
Patient was seen and examined. He denied any symptoms or complaints.
Objective Data
-
Labs:
Laboratory Results
02/22/25
05:31
WBC 10.3
Hgb 14.2
Hct 44.0
Plt Count 308 D
PT 18.1 H
INR 1.47
Sodium 140
Potassium 4.3
Chloride 106
Carbon Dioxide 26
BUN 20
Creatinine 1.0
Glucose 152 H
Calcium 8.9
Vital Signs:
Vital Signs
Temp Pulse Resp BP Pulse Ox
98.3 F 82 19 127/78 94
02/22/25 07:00 02/22/25 08:19 02/22/25 07:00 02/22/25 08:19 02/22/25 07:00
I&O
02/21/25 02/22/25 02/23/25
06:59 06:59 06:59
Intake Total 1680 / 1680 1620 / 1620
Output Total 1200 / 1200
Balance 480 / 480 1620 / 1620
[2025-02-22 16:34] LABS: Glucose - Point of Care 168 mg/dl (70-99)
[2025-02-22] MEDS: LIPITOR 40 MG PO (17:24)
[2025-02-22] MEDS: COUMADIN 7.5 MG PO (17:25)
[2025-02-22 21:46] LABS: Glucose - Point of Care 222 mg/dl (70-99)
[2025-02-23] MEDS: BENADRYL 25 MG PO (00:15)
[2025-02-23 00:17] VITALS: BP 141/66
[2025-02-23 05:56] LABS: Hematocrit 43.9 % (39.0-52.0); Hemoglobin 14.6 g/dL (13.0-18.0); Mean Corp Hgb Conc. 33.3 g/dL (33.0-37.0); Mean Corpuscular Volume 91.6 fL (80.0-94.0); Platelet Count 310 10^3/uL (130-400); Red Cell Dist. Width 13.2 % (11.5-14.5)
[2025-02-23 06:07] LABS: INR 1.96; PT 22.5 Sec (11.4-14.6)
[2025-02-23 07:00] VITALS: BP 113/68
[2025-02-23 07:55] LABS: Glucose - Point of Care 143 mg/dl (70-99)
--- NOTE | 2025-02-23 07:59 | W.PN.HOSP.TC ---
Today's Communication/Plan
-
Discharge today
Assessment / Plan
Assessment / Plan
Physical Exam
General: Well Developed, Well Nourished, No Apparent Distress, Comfortable and Obese
HEENT: Normocephalic, Atraumatic, Nose Appears Normal and Ears Appear Normal
Respiratory: Clear to Auscultation Bilaterally
Cardiac: Regular Rhythm and S1/S2
GI: Soft, Nontender and Nondistended. Positive bowel sounds.
Musculoskeletal: No Cyanosis. Edema, Right Lower Extremity; and Edema, Left Lower Extremity
Skin: Warm and Dry
Neuro: Awake, Alert, Oriented and AO x 3
Psych: Calm
Assessment/Plan
69-year-old male with past medical history of prior pulmonary embolism status post thrombolysis, diet controlled elevated blood sugar but no diagnosis of diabetes mellitus; p/w worsening lesions in the left lower extremity.
Patient stated that he has had bilateral lower extremity swelling intermittently for several years. He started having cellulitis in his leg in 2020.
He reported onset of a saccular lesion in his lateral left lower extremity for several weeks. Then additional lesions developed in the anterior and posterior segments. He denied any injuries. He had been attempting to keep his leg elevated but is
now unable to do so due to the location of the lesion. Patient stated that he had been taking Ibuprofen every 5 hours to control the pain and feels like this has also been controlling fever. He denied having chills. He has not had any nausea or
vomiting. X-ray of the tibia-fibula and foot shows no fracture. Did not see any foreign body. Obvious large ulcerations extending into the subcutaneous layer, and no gas noted.
A/P
1. Possible LLE Cellulitis with Large ulcerations without drainage.
Left lower extremity venous stasis wounds
Lower extremity edema/lymphedema (?
Suspect venostasis dermatitis, possible pyoderma.
No deep tissue infection on xray, noted large ulcerations extending into the subcutaneous layer, no gas noted.
wound culture polymicrobial, Admission blood cultures negative,
Antibiotics STOPPED as per ID
Blood cultures with no growth
Continue with local care to the left lower extremity wounds, along with compressive modalities (CINDY)
ID consulted
Wound care consulted
Pain control as needed
Will need continued follow-up in the wound care center with Dr. Saez
2. Hyperglycemia due to untreated diabetes with A1c 10.5%
Started Insulin 70/30, adjusted to 13 units BID by DM POOL HALL INSPECTOR -- glucose well-controlled
Cont sliding scale insulin, adjust as needed
Pt declined metformin 500 bid due to previous severe GI S/E
appreciate DM POOL HALL INSPECTOR input
3. Hyperlipidemia with LDL 117
Continue newly started Lipitor 40 mg
4. Mild transaminitis, suspect reactive, resolved
5. Uncontrolled HTN
HTN urgency, resolved
Started Labetalol 100 mg bid and lisinopril 5 mg
Monitor BP
6. h/o PE s/p IVC filter and removal.
7. LLE DVT
Not on AC due to cost/non-compliance. Unclear if provoked PE in 2019
LLE u/s showed non-occlusive thrombus of the within the femoral vein, popliteal vein and peroneal vein
on aspirin.
Cost of Eliquis and Xarelto both at around 600 dollar per month, which pt cannot afford
Cont therapeutic Lovenox for now
Per Dr. Dietrich, Heme was on board for OAC recc, recc Coumadin
Cont Coumadin 5 mg HS and check daily INR -- Coumadin was not given on 02/20/25 -- INR goal 2-3, ideally should reach close to 2 before discharge
INR today 1.96
Increased dose of Coumadin 7.5 to be given on evening of 02/22/25, followed by the usual dose of 5 mg every evening starting 02/23/25
DVT Prophylaxis: therapeutic Lovenox with bridging to Coumadin , daily INR
Code Status: Full Code
More than 30 minutes spent in discharge including
Final examination of the patient
Summarizing hospital stay
Instructions for continuing care to all relevant caregivers
Preparation of discharge records, prescriptions, and referral forms
Total time spent (in minutes): 37
Anticipated Discharge: Today
Subjective/Interval History
-
Date of Service: February 23, 2025
Patient was seen and examined. He denied chest pain, shortness of breath or any other symptoms or complaints.
Objective Data
-
Labs:
Laboratory Results
02/23/25
05:50
WBC 11.8 H
Hgb 14.6
Hct 43.9
Plt Count 310
PT 22.5 H
INR 1.96
Vital Signs:
Vital Signs
Temp Pulse Resp BP Pulse Ox
98.6 F 84 17 141/66 96
02/23/25 00:17 02/23/25 00:17 02/23/25 00:17 02/23/25 00:17 02/23/25 00:17
I&O
02/22/25 02/23/25 02/24/25
06:59 06:59 06:59
Intake Total 1620 / 1620 1620 / 1620
Balance 1620 / 1620 1620 / 1620
[2025-02-23] MEDS: NOVOLOG FLEXPEN-LOW RESISTANCE SC ×2 (08:04→12:11)
--- NOTE | 2025-02-23 08:16 | PN.DE.MGMTRT ---
Insulin Management
- -
02/23/2025: Diabetes Management Follow up
Patient admitted 02/13 with pain swelling and discharge from multiple wounds LLE. PMH: HTN, T2DM, Pulmonary Embolism, BLE swelling for several years. Prior to admission was taking no medication for diabetes. A1C 10.5%, Cr 1, eGFR > 60.
States: 'family history of diabetes so I tried to watch what I eat'. States his primary doctor started him on metformin, years back, but it did not agree with him. He admits he has not been to a doctor in over a year.
Glucose on admission 305
Patient is awake alert and oriented, sitting up in bed, able to discuss diabetes care. Insulin regime was switched to 70/30 due to cost.
02/22 Fasting glucose 152 range 152 to 222.
02/23 Fasting glucose 143.
Will increase 70/30 dose to 13 units BID. Pt declined Metformin, states he had severe GI adverse reactions.
Discussed with nurse. Will cont to follow.
Recommended [employer] meter as test strips will also be more affordable.
Diabetes Nurse Educator has instructed patient on prep and self injection for 70/30. Request all injections be administered by patient with nursing supervision. Home pen needles provided.
Patient states CM mentioned working on getting prescription coverage.
Diabetes History
- -
Type of Diabetes: 2 requiring insulin
Pre-Admission Diabetes Regimen
Lab Results
Hemoglobin A1c 10.5 % (4.0-5.6) H 02/14/25 06:16
Insulin Pump Settings
IP Diabetes Regimen
02/22/25 02/22/25 02/22/25
11:48 16:34 21:45
POC Glucose 183 H 168 H 222 H
02/23/25
07:54
POC Glucose 143 H
Meal type: Dinner
Meal type: Lunch
Meal type: Breakfast
Amount consumed: 100%
Amount consumed: 100%
Amount consumed: 100%
Patient Education
[2025-02-23] MEDS: ZESTRIL 5 MG PO (09:03)
[2025-02-23] MEDS: TRANDATE 100 MG PO (09:03)
[2025-02-23] MEDS: ASPIR LOW (ENTERIC COATED) 81 MG PO (09:03)
[2025-02-23] MEDS: NOVOLOG MIX 70/30 FLEXPEN 12 UNITS SC (09:04)
[2025-02-23] MEDS: HYDROPHOR 1 APPLIC TOPICAL (09:06)
[2025-02-23] MEDS: SANTYL OINTMENT 1 APPLIC TOPICAL (09:07)
--- NOTE | 2025-02-23 11:34 | W.PN.ID1 ---
Date of Service
Date of Service: February 23, 2025
Today's Communication
Continue with local care to the left lower extremity. Monitor off antibiotics.
Assessment / Plan
Left lower extremity venous stasis wounds
Lower extremity edema/lymphedema (?chronic)
Leukocytosis - low grade
Left lower extremity nonocclusive DVT
Recommendations:
Erythema improved.
Wounds also improved.
Continue with local care to the left lower extremity wounds.
Would continue use of Dakin's solution soaks, along with compressive modalities (Feliz)
Vancomycin/cefepime previously DC'd. Observe off antibiotics.
Patient will need continued follow-up in the wound care center.
����������������������������������������������������������
Chief Complaint
-: Other (LLE wounds)
Subjective / Review of Systems
Review of Systems: No Fever and No Chills
Vital Signs / Physical Exam
Vital Signs
Vital Signs
Temp Pulse Resp BP Pulse Ox
98.4 F 78 17 113/68 94
02/23/25 07:00 02/23/25 09:03 02/23/25 07:00 02/23/25 09:03 02/23/25 07:00
Physical Exam
Constitutional: Comfortable and Non-toxic
Eyes: Sclera Anicteric
Pulmonary: Non Labored
Extremities: Edema (LLE) and Venous Insufficiency (Left lower extremity)
Wound: Other (Multiple superficial wounds noted left lower extremity. Slough in the base. Minimal periwound erythema. Some purulence noted.)
Neurological: Awake and Alert
Psychological: Calm
Objective Data
Lab Data
Lab Results
02/23/25 05:50
02/22/25 05:31
ESR 20 mm/hour (0-20) 02/14/25 06:16
PT 22.5 Sec (11.4-14.6) H 02/23/25 05:50
INR 1.96 02/23/25 05:50
APTT 33.3 Sec (23.4-35.0) 02/14/25 06:16
Estimated Creat Clear 79 ml/min 02/22/25 05:31
Lactic Acid 2.0 mmol/L (0.7-2.0) 02/13/25 16:41
Total Bilirubin 1.0 mg/dl (0.2-1.3) 02/15/25 06:23
AST 43 U/L (17-59) 02/15/25 06:23
ALT 41 U/L (0-50) 02/15/25 06:23
Alkaline Phosphatase 79 U/L (38-126) 02/15/25 06:23
Most recent labs reviewed.
Micro Results:
02/18/25 06:30 Blood Culture - Final
Blood/Venous No Growth - Final Report
02/17/25 18:40 Blood Culture - Final
Blood/Venous No Growth - Final Report
02/13/25 16:41 Blood Culture - Final
Blood/Venous No Growth - Final Report
02/13/25 19:38 Wound Culture - Final
Leg - Left Gram Stain - Final
02/13/25 19:38 Wound Culture - Final
Leg - Left Gram Stain - Final
02/13/25 19:38 Wound Culture - Final
Leg - Left Gram Stain - Final
02/14/25 00:00 MRSA Screen - Final
Nose Staph aureus MRSA
[2025-02-23 12:11] LABS: Glucose - Point of Care 141 mg/dl (70-99)
[2025-02-23] MEDS: LOVENOX 100 MG SC (12:21)
--- NOTE | 2025-02-23 14:00 | CM ---
Addendum entered by Sejal Medley 02/23/25 16:30:
IMM explained & signed. In chart
significant other to transport
Original Note:
Patient chart reviewed
[facility] referral in [facility]-accepted
PLAN: Home with [facility] when stable
[2025-02-23 15:00] VITALS: BP 121/62
--- NOTE | 2025-02-23 16:09 | VNURNOTE ---
Spoke with patient again. Reviewed w/him that [facility] will contact him prior to home visits. Urged him to be sure to answer his phone so visits can be arranged. Patient verbalized understanding. [facility] referral accepted in [facility].
== END 2025-02-23 17:50 | disposition home health service (06) | DRG 300 ==
LOC: 3 WEST ACU 20:57
PROVIDERS: Internal Medicine; Internal Medicine Hematology & Oncology; ADMITTING PHYSICIAN Internal Medicine; ATTENDING PHYSICIAN Hospitalist; EMERGENCY PHYSICIAN Emergency Medicine; OTHER PHYSICIAN Hospitalist
DX: E11.51 Type 2 diabetes mellitus with diabetic peripheral angiopathy without gangrene (principal); I45.2 Bifascicular block; L03.116 Cellulitis of left lower limb; L97.929 Non-pressure chronic ulcer of unspecified part of left lower leg with unspecified severity; E11.628 Type 2 diabetes mellitus with other skin complications; E11.65 Type 2 diabetes mellitus with hyperglycemia; I10 Essential (primary) hypertension; Z86.711 Personal history of pulmonary embolism; E66.9 Obesity, unspecified; Z68.36 Body mass index [BMI] 36.0-36.9, adult; E78.5 Hyperlipidemia, unspecified; I16.0 Hypertensive urgency; L08.0 Pyoderma
CPT/HCPCS: 73590; 73630; 80048; 80053; 80061; 80202; 81003; 81015; 82962; 83036; 83605; 83735; 85025; 85027; 85610; 85652; 85730; 87040; 87070; 87077; 87147; 87205; 93005; 93971; 96365; 97116; 97162; 97530; 99285

== ENCOUNTER 2025-03-09 22:38 | Emergency (ER) | payer MEDICARE, SELFPAY ==
[2025-03-09 22:43] VITALS: BP 134/81
[2025-03-09 22:58] LABS: Hematocrit 43.1 % (39.0-52.0); Hemoglobin 14.2 g/dL (13.0-18.0); Mean Corp Hgb Conc. 32.9 g/dL (33.0-37.0); Mean Corpuscular Volume 90.7 fL (80.0-94.0); Nucleated Red Blood Cells % 0 % (-); Platelet Count 250 10^3/uL (130-400); Red Cell Dist. Width 13.7 % (11.5-14.5)
[2025-03-09 23:08] LABS: INR 2.70; PT 29.1 Sec (11.4-14.6)
[2025-03-09 23:26] LABS: ALT (SGPT) 53 U/L (0-50); AST (SGOT) 56 U/L (17-59); Albumin 4.1 g/dl (3.5-5.0); Alkaline Phosphatase 93 U/L (38-126); Blood Urea Nitrogen 22 mg/dl (9-20); Calcium 10.1 mg/dl (8.4-10.2); Carbon Dioxide 18 mmol/L (22-30); Chloride 115 mmol/L (98-107); Glucose 106 mg/dl (70-99); Potassium 4.1 mmol/L (3.5-5.1); Sodium 139 mmol/L (135-145); Total Protein 7.5 g/dl (6.3-8.2); eGFR 59.84
[2025-03-10 00:41] VITALS: BP 123/76
[2025-03-10 00:42] VITALS: BMI 33.6
[2025-03-10 01:00] VITALS: BP 125/81
[2025-03-10 02:00] VITALS: BP 121/78
[2025-03-10] MEDS: ANUSOL HC 25 MG RECTAL (02:32)
--- NOTE | 2025-03-10 02:40 | ED.GENMED ---
History of Present Illness
General
Chief Complaint: Rectal Bleeding
Source: patient and previous hospital records (Hospitalization here February 13 to February 23 for treatment of left lower extremity cellulitis, poorly controlled diabetes. Chronic noncompliance with medications.)
Exam Limitations: none
Time Seen by Provider: 03/10/25 01:44
Nursing documentation reviewed up to this point in time: agreed with
History of Present Illness
History of Present Illness:
This is a 69-year-old gentleman with history of cellulitis and prior history of PE status post thrombolysis, IVC filter and removal. History of diabetes. Noncompliance with medications due to difficulties with affordability. He was acutely
hospitalized here February 13 to February 23 for treatment of left lower extremity cellulitis. Poorly controlled diabetes. Was found to have nonocclusive DVT left lower extremity. Was started on Coumadin as well as insulin. IV antibiotics transition to
oral antibiotics.
1 day after discharge here patient states he suffered an acute IN, non-STEMI, initially evaluated at [facility] then transferred to [facility] where he underwent PTCA with stent ostial ramus. Started on Plavix as well as low-dose
aspirin with plan to discontinue aspirin March 11 and continue Plavix daily along with warfarin.
He has been feeling well since discharge from [place] February 27. He has followed up with his PCP since discharge home and he has been receiving home health care nursing care, left lower extremity dressing changes and he states his left lower
extremity wounds have been slowly improving. He has an initial appointment with wound care next week.
Tonight however after passing a large soft brown bowel movement he noticed bright red blood in the toilet as well as with wiping. He continued with scant oozing of bright red blood from rectum without sense of needing to pass a bowel movement. At
1 point he passed gas without additional bleeding. He denies abdominal pain, no cramping, no back pain, no dizziness nor lightheadedness. No history of similar episodes of rectal bleeding. He denies rectal pain. No chest pain or coughing or
shortness of breath. He has not had a fever nor chills.
Appetite has been good.
He has never undergone colonoscopy.
Past History
Past History
ED Past Medical History: CAD, HTN, Hypercholesterolemia, NIDDM (Insulin requiring diabetes), IN (Non-STEMI February 2025) and Other (DVT/PE, Mg filter that was then removed.)
ED Past Surgical History: Cardiac (PTCA with stent February 2025)
Social History
Tobacco: Non-smoker
Alcohol: Occasional
Drug: None
Personal:
Living: with family
Employment: Retired
Family History
Family History: Other (Noncontributory)
Phy Exam
Physical Exam
Physical Exam:
GENERAL: Alert , in no apparent distress
EYE: pupils equal and reactive. anicteric
NECK: Supple, nontender, no meningismus, no significant adenopathy.
ENT: oral mucosa is moist. No rhinorrhea.
CARDIAC: Regular rate and rhythm. no murmur.
LUNGS: Clear breath sounds bilaterally, no acute respiratory distress, no wheezes/rales/rhonchi
ABDOMEN: Rotund, soft, nondistended, without focal tenderness, no r/g, no cvat. normoactive BS. Rectal exam reveals few small nontender external hemorrhoids as well as 1 larger mildly tender external hemorrhoid left lateral aspect with scant blood
expressed from medial to superior aspect of this hemorrhoid. Digital rectal exam reveals no blood further up in the canal, no rectal masses.
NEUROLOGICAL: Alert and oriented x3, no focal neuro deficits.
SKIN: Warm and dry, normal color, skin intact. No rash.
MUSCULOSKELETAL: Left lower extremity with dry and intact dressing and Feliz wrap. Peripheral pulses are full and equal b/l. No palpable tenderness.
PSYCH: Normal and appropriate interaction.
Course
Orders/Labs/Results
Orders:
Orders
03/09/25 22:50
Complete Blood Count/With Diff Urgent
Comprehensive Metabolic Panel Urgent
PT/INR [Prothrombin Time] Urgent
03/10/25 02:19
Anusol Hc Suppository [Anusol Hc] 25 mg RECTAL NOW STA
Abnormal Lab Results
03/09/25
22:50
MCHC 32.9 L g/dL
(33.0-37.0)
Absolute Monos (auto) 0.7 H 10^3/uL
(0.1-0.6)
Eosinophils % 7.4 H %
(0-6)
PT 29.1 H Sec
(11.4-14.6)
Chloride 115 H mmol/L
(98-107)
Carbon Dioxide 18 L mmol/L
(22-30)
BUN 22 H mg/dl
(9-20)
Glucose 106 H mg/dl
(70-99)
ALT 53 H U/L
(0-50)
03/09/25 22:50
03/09/25 22:50
Vital Signs
Initial and Last Documented VS:
Initial Vital Signs
Temp Pulse Resp BP Pulse Ox
98.9 F 86 18 134/81 97
03/09/25 22:43 03/09/25 22:43 03/09/25 22:43 03/09/25 22:43 03/09/25 22:43
Last Documented Vital Signs
Temp Pulse Resp BP Pulse Ox
98.9 F 72 18 135/87 96
03/09/25 22:43 03/10/25 03:00 03/09/25 22:43 03/10/25 03:00 03/10/25 03:00
MDM/Problems Addressed
Differential Diagnosis Includes:
Patient presents with bright red rectal bleeding that on exam appears to be related to bleeding external hemorrhoid. Scant blood expressed with local pressure to the hemorrhoid but no active bleeding. There is no evidence of blood within the
rectal vault.
Patient continues to deny abdominal pain, abdomen is soft without appreciable tenderness.
Labs are reassuring.
INR is therapeutic at 2.7.
Patient is certainly at risk for bleeding as he is maintained on Coumadin as well as Plavix. Due to recent stent recommend he continue his anticoagulants.
Reassuring that he has had no further bleeding since arrival to the ED and no active bleeding on exam.
Will treat external hemorrhoid with a course of Anusol suppository.
Discussed importance of avoiding constipation, avoid straining at stool and avoid prolonged sitting on toilet.
Ultimately will require follow-up with GI as well as prompt follow-up with PCP.
Strict return precautions discussed.
Chronic conditions affecting care: DM, CAD (Recent non-STEMI, PTCA with stent, on Plavix, low-dose aspirin. Aspirin to be discontinued tomorrow. Recommend discontinuing today. Continue Plavix.) and Other (History of PE/DVT, chronically maintained
on Coumadin.)
*Pulse Oximetry
SaO2: 97
Oxygen Mode of Delivery: Room air
Patient hypoxic: no
*Er Nurse Interpretation
Rate: normal
Interpretation: normal
Rhythm: sinus
*Critical Care Note
Total Time (30-74mins, 75-104mins- exclusive of procedures): Not Applicable
ED Attending Note
-
Portions of this chart may have been created with voice recognition software.� Occasional wrong word or��sound alike� substitutions may have occurred due to the inherent limitations of voice recognition software.
Discharge Plan
Departure
Patient Disposition: Home (Routine Discharge)
Date of Disposition: 03/10/25
Time of Disposition: 02:56
Patient with high blood pressure during this ER visit?: No
Condition: Good
Discharge Problem:
Bleeding external hemorrhoids
Instructions: Hemorrhoids (DC)
Prescriptions:
New
hydrocortisone acetate [Anusol-HC] 25 mg suppository
25 mg NM BID Qty: 30 0RF
No Action
acetaminophen [Tylenol] 325 mg Tablet
650 mg PO PRN PRN (Reason: MILD PAIN)
aspirin 81 mg Tablet,Delayed Release (Dr/Ec)
81 mg PO DAILY
magnesium oxide 200 mg magnesium Tablet
200 mg PO DAILY
Novolin 70-30 FlexPen U-100 100 unit/mL (70-30) Insulin Pen
12 unit SC BID Qty: 5 3RF
Rx Instructions:
Take twice a day with breakfast and dinner
(DME) pen needle, diabetic [Radha 2nd Gen Pen Needle] 32 gauge x 5/32' Needle
Qty: 200 0RF
Rx Instructions:
As Directed
warfarin [Jantoven] 5 mg Tablet
5 mg PO QPM Qty: 30 1RF
atorvastatin 40 mg Tablet
40 mg PO QPM Qty: 30 2RF
labetalol 100 mg Tablet
100 mg PO BID Qty: 60 1RF
lisinopril 5 mg Tablet
5 mg PO DAILY Qty: 30 1RF
Referrals:
Kolby Saldaña MD [Active, Gastroenterology] - Call in 1-3 days for appt
UNKNOWN - PT DOES,NOT KNOW [Family Provider]
Activity Restrictions/Additional Instructions:
Add fiber to your diet such as Metamucil. Avoid straining at stool.
You have been prescribed Anusol suppositories to insert into your rectum twice daily over the next 2 weeks.
Follow-up with your PCP this week for recheck and you have been provided referral information for laundry manager.
If rectal bleeding worsens especially if accompanied with abdominal pain, cramping, dizziness or lightheadedness, prompt return to the ED for further evaluation.
Interventions
Interventions:
*Risk Screen - Suicide Last Done: 03/09/25 22:43
*General Assessment Last Done: 03/09/25 22:43
*Neglect/Abuse Screening Last Done: 03/09/25 22:43
*ED- Fall Risk Assessment Last Done: 03/09/25 22:43
*ED COVID-19 Vaccine History Last Done: 03/09/25 22:43
*Nursing Disposition Last Done: 03/10/25 03:24
NA-Jrajjm-Syqyzhwgzk Assessment Last Done: 03/10/25 00:41
ED- Cardiac Assessment Last Done: 03/10/25 00:41
ED- Pulmonary Assessment Last Done: 03/10/25 00:41
Discharge Date and Time
Discharge Date/Time: 03/10/25 03:25
Print Language: SALVADOREAN
[2025-03-10 03:00] VITALS: BP 135/87
== END 2025-03-10 03:25 | disposition home or self-care (01) ==
LOC: EMR 22:38
PROVIDERS: Emergency Medicine; EMERGENCY PHYSICIAN Emergency Medicine
DX: K62.5 Hemorrhage of anus and rectum (principal); K64.4 Residual hemorrhoidal skin tags; E78.00 Pure hypercholesterolemia, unspecified; I25.10 Atherosclerotic heart disease of native coronary artery without angina pectoris; E11.9 Type 2 diabetes mellitus without complications; I10 Essential (primary) hypertension; Z95.5 Presence of coronary angioplasty implant and graft; I25.2 Old myocardial infarction; Z79.01 Long term (current) use of anticoagulants; Z79.02 Long term (current) use of antithrombotics/antiplatelets; Z86.711 Personal history of pulmonary embolism; Z88.2 Allergy status to sulfonamides; Z91.011 Allergy to milk products
CPT/HCPCS: 99283; 80053; 85025; 85610

== ENCOUNTER → 2025-03-15 07:37 | Outpatient (REF) | payer MEDICARE, SELFPAY | LOC: WOUND 07:37 | PROVIDERS: ATTENDING PHYSICIAN Surgery | DX: E11.622 Type 2 diabetes mellitus with other skin ulcer (principal); L97.222 Non-pressure chronic ulcer of left calf with fat layer exposed; L97.822 Non-pressure chronic ulcer of other part of left lower leg with fat layer exposed; Z79.4 Long term (current) use of insulin; Z79.01 Long term (current) use of anticoagulants; I82.502 Chronic embolism and thrombosis of unspecified deep veins of left lower extremity | CPT/HCPCS: 99203 ==

== ENCOUNTER → 2025-03-22 09:42 | Outpatient (REF) | payer MEDICARE, SELFPAY | LOC: WOUND 09:42 | PROVIDERS: ATTENDING PHYSICIAN Surgery | DX: L97.222 Non-pressure chronic ulcer of left calf with fat layer exposed (principal); L97.822 Non-pressure chronic ulcer of other part of left lower leg with fat layer exposed; I82.502 Chronic embolism and thrombosis of unspecified deep veins of left lower extremity; I87.2 Venous insufficiency (chronic) (peripheral); I73.9 Peripheral vascular disease, unspecified; Z79.01 Long term (current) use of anticoagulants; Z79.4 Long term (current) use of insulin | CPT/HCPCS: 99213 ==

== ENCOUNTER → 2025-03-29 09:43 | Outpatient (REF) | payer MEDICARE, SELFPAY | LOC: WOUND 09:43 | PROVIDERS: ATTENDING PHYSICIAN Surgery | DX: E11.622 Type 2 diabetes mellitus with other skin ulcer (principal); L97.222 Non-pressure chronic ulcer of left calf with fat layer exposed; L97.822 Non-pressure chronic ulcer of other part of left lower leg with fat layer exposed; Z79.4 Long term (current) use of insulin; Z79.01 Long term (current) use of anticoagulants; I82.502 Chronic embolism and thrombosis of unspecified deep veins of left lower extremity; I87.2 Venous insufficiency (chronic) (peripheral); I73.9 Peripheral vascular disease, unspecified | CPT/HCPCS: 99213 ==

== ENCOUNTER → 2025-04-05 09:52 | Outpatient (REF) | payer MEDICARE, SELFPAY | LOC: WOUND 09:52 | PROVIDERS: ATTENDING PHYSICIAN Surgery | DX: L97.222 Non-pressure chronic ulcer of left calf with fat layer exposed (principal); E11.622 Type 2 diabetes mellitus with other skin ulcer; L97.822 Non-pressure chronic ulcer of other part of left lower leg with fat layer exposed; I82.502 Chronic embolism and thrombosis of unspecified deep veins of left lower extremity; I87.2 Venous insufficiency (chronic) (peripheral); I73.9 Peripheral vascular disease, unspecified; Z79.4 Long term (current) use of insulin; Z79.01 Long term (current) use of anticoagulants | CPT/HCPCS: 99213 ==

== ENCOUNTER → 2025-04-12 10:10 | Outpatient (REF) | payer MEDICARE, SELFPAY | LOC: WOUND 10:10 | PROVIDERS: ATTENDING PHYSICIAN Surgery | DX: E11.622 Type 2 diabetes mellitus with other skin ulcer (principal); L97.222 Non-pressure chronic ulcer of left calf with fat layer exposed; L97.822 Non-pressure chronic ulcer of other part of left lower leg with fat layer exposed; I82.502 Chronic embolism and thrombosis of unspecified deep veins of left lower extremity; I87.2 Venous insufficiency (chronic) (peripheral); I73.9 Peripheral vascular disease, unspecified; Z79.4 Long term (current) use of insulin; Z79.01 Long term (current) use of anticoagulants | CPT/HCPCS: 17250; 99213 ==

== ENCOUNTER → 2025-04-14 08:58 | Outpatient (REF) | payer MEDICARE, SELFPAY | LOC: RAD 08:58 | PROVIDERS: ATTENDING PHYSICIAN Surgery | DX: E11.622 Type 2 diabetes mellitus with other skin ulcer (principal); I73.9 Peripheral vascular disease, unspecified; I87.2 Venous insufficiency (chronic) (peripheral) | CPT/HCPCS: 93922; 93971 ==

== ENCOUNTER → 2025-04-21 10:42 | Outpatient (REF) | payer MEDICARE, SELFPAY | LOC: WOUND 10:42 | PROVIDERS: ATTENDING PHYSICIAN Surgery | DX: E11.622 Type 2 diabetes mellitus with other skin ulcer (principal); L97.222 Non-pressure chronic ulcer of left calf with fat layer exposed; L97.822 Non-pressure chronic ulcer of other part of left lower leg with fat layer exposed; I82.502 Chronic embolism and thrombosis of unspecified deep veins of left lower extremity; I87.2 Venous insufficiency (chronic) (peripheral); I73.9 Peripheral vascular disease, unspecified; Z79.4 Long term (current) use of insulin; Z79.01 Long term (current) use of anticoagulants | CPT/HCPCS: 99213 ==

== ENCOUNTER → 2025-05-05 11:00 | Outpatient (REF) | payer MEDICARE, SELFPAY | LOC: WOUND 11:00 | PROVIDERS: ATTENDING PHYSICIAN Surgery | DX: E11.622 Type 2 diabetes mellitus with other skin ulcer (principal); L97.222 Non-pressure chronic ulcer of left calf with fat layer exposed; L97.822 Non-pressure chronic ulcer of other part of left lower leg with fat layer exposed; I82.502 Chronic embolism and thrombosis of unspecified deep veins of left lower extremity; I87.2 Venous insufficiency (chronic) (peripheral); I73.9 Peripheral vascular disease, unspecified; Z79.01 Long term (current) use of anticoagulants; Z79.4 Long term (current) use of insulin | CPT/HCPCS: 99213 ==

== ENCOUNTER → 2025-05-19 09:41 | Outpatient (REF) | payer MEDICARE, SELFPAY | LOC: WOUND 09:41 | PROVIDERS: ATTENDING PHYSICIAN Surgery | DX: E11.622 Type 2 diabetes mellitus with other skin ulcer (principal); L97.222 Non-pressure chronic ulcer of left calf with fat layer exposed; L97.822 Non-pressure chronic ulcer of other part of left lower leg with fat layer exposed; I82.502 Chronic embolism and thrombosis of unspecified deep veins of left lower extremity; I87.2 Venous insufficiency (chronic) (peripheral); I73.9 Peripheral vascular disease, unspecified; Z79.01 Long term (current) use of anticoagulants; Z79.4 Long term (current) use of insulin | CPT/HCPCS: 99213 ==

== ENCOUNTER → 2025-06-02 09:45 | Outpatient (REF) | payer MEDICARE, SELFPAY | LOC: WOUND 09:45 | PROVIDERS: ATTENDING PHYSICIAN Surgery | DX: E11.622 Type 2 diabetes mellitus with other skin ulcer (principal); L97.222 Non-pressure chronic ulcer of left calf with fat layer exposed; L97.822 Non-pressure chronic ulcer of other part of left lower leg with fat layer exposed; I82.502 Chronic embolism and thrombosis of unspecified deep veins of left lower extremity; I87.2 Venous insufficiency (chronic) (peripheral); I73.9 Peripheral vascular disease, unspecified; Z79.4 Long term (current) use of insulin; Z79.01 Long term (current) use of anticoagulants | CPT/HCPCS: 11042; 11045 ==

== ENCOUNTER → 2025-06-21 11:11 | Outpatient (REF) | payer MEDICARE, SELFPAY | LOC: WOUND 11:11 | PROVIDERS: ATTENDING PHYSICIAN Surgery | DX: E11.622 Type 2 diabetes mellitus with other skin ulcer (principal); L97.222 Non-pressure chronic ulcer of left calf with fat layer exposed; L97.822 Non-pressure chronic ulcer of other part of left lower leg with fat layer exposed; I82.502 Chronic embolism and thrombosis of unspecified deep veins of left lower extremity; I87.2 Venous insufficiency (chronic) (peripheral); I73.9 Peripheral vascular disease, unspecified; Z79.01 Long term (current) use of anticoagulants; Z79.4 Long term (current) use of insulin | CPT/HCPCS: 11042; 11045 ==

== ENCOUNTER 2025-07-07 09:40 | Outpatient (REF) | payer MEDICARE, SELFPAY | END 2025-07-07 23:59 | disposition home or self-care (01) | LOC: WOUND 09:40 | PROVIDERS: ATTENDING PHYSICIAN Surgery | DX: E11.622 Type 2 diabetes mellitus with other skin ulcer (principal); L97.222 Non-pressure chronic ulcer of left calf with fat layer exposed; L97.822 Non-pressure chronic ulcer of other part of left lower leg with fat layer exposed; I82.502 Chronic embolism and thrombosis of unspecified deep veins of left lower extremity; I87.2 Venous insufficiency (chronic) (peripheral); I73.9 Peripheral vascular disease, unspecified | CPT/HCPCS: 11042; 11045 ==

== ENCOUNTER 2025-07-15 20:53 | Emergency (ER) | payer OTHER, SELFPAY ==
[2025-07-15 21:00] VITALS: BP 144/54
[2025-07-15 21:45] LABS: Hematocrit 46.7 % (39.0-52.0); Hemoglobin 15.4 g/dL (13.0-18.0); Mean Corp Hgb Conc. 33.0 g/dL (33.0-37.0); Mean Corpuscular Volume 87.3 fL (80.0-94.0); Nucleated Red Blood Cells % 0 % (-); Platelet Count 214 10^3/uL (130-400); Red Cell Dist. Width 13.6 % (11.5-14.5)
[2025-07-15 22:08] LABS: Blood Urea Nitrogen 24 mg/dl (9-20); Calcium 9.7 mg/dl (8.4-10.2); Carbon Dioxide 19 mmol/L (22-30); Chloride 110 mmol/L (98-107); Glucose 167 mg/dl (70-99); INR 2.04; PT 23.2 Sec (11.4-14.6); Sodium 136 mmol/L (135-145); eGFR 59.84
--- NOTE | 2025-07-15 22:49 | ED.GENMED ---
History of Present Illness
General
Chief Complaint: Rectal Bleeding
Source: patient
Time Seen by Provider: 07/15/25 22:34
History of Present Illness
History of Present Illness:
This patient is a 69-year-old male who states that he went to dinner tonight feeling his usual self. He went back home and had a bowel movement, and states at that time he noted bleeding from an external hemorrhoid that would not stop. This
prompted his visit to the ER. He has had episodes like this before and describes being in the emergency department earlier this year for similar symptoms. He denies heavy lifting or straining, black stools, bleeding elsewhere. Of note, patient is
on warfarin and is compliant with this medication. He denies dizziness, abdominal pain, chest pain, shortness of breath, or other complaints.
Past History
Past History
ED Past Medical History: CAD, HTN, Hypercholesterolemia, NIDDM (Insulin requiring diabetes), [place] (Non-STEMI February 2025) and Other (DVT/PE, [place] filter that was then removed.)
ED Past Surgical History: Cardiac (PTCA with stent February 2025)
Social History
Tobacco: Non-smoker
Alcohol: Occasional
Drug: None
Personal:
Living: with family
Employment: Retired
Family History
Family History: Other (Noncontributory)
Phy Exam
Physical Exam
Physical Exam:
GENERAL: Alert , in no apparent distress
EYE: pupils equal and reactive
NECK: Supple, no significant adenopathy.
ENT: o/p clr, mmm.
CARDIAC: Regular rate and rhythm .
LUNGS: Clear breath sounds bilaterally, no acute respiratory distress, no wheezes/rales/rhonchi
ABDOMEN: Soft, without focal tenderness, no r/g, no cvat
NEUROLOGICAL: Alert and oriented, no focal neuro deficits
SKIN: Warm and dry, skin intact.
MUSCULOSKELETAL: 2+ LE edema, well perfused.
PSYCH: Normal and appropriate interaction.
RECTAL: Isa SOOD p resent. Ext hemorrhoids noted without active bleeding, Digital exam without blood grossly noted.
Course
Orders/Labs/Results
Orders:
Orders
07/15/25 21:37
Basic Metabolic Panel Urgent
Complete Blood Count/With Diff Urgent
PT/INR [Prothrombin Time] Urgent
Abnormal Lab Results
07/15/25
21:37
MPV 10.5 H fL
(7.4-10.4)
Lymphocytes % 16.8 L %
(20.5-51.1)
PT 23.2 H Sec
(11.4-14.6)
Chloride 110 H mmol/L
(98-107)
Carbon Dioxide 19 L mmol/L
(22-30)
BUN 24 H mg/dl
(9-20)
Glucose 167 H mg/dl
(70-99)
07/15/25 21:37
07/15/25 21:37
Vital Signs
Initial and Last Documented VS:
Initial Vital Signs
Temp Pulse Resp BP Pulse Ox
98.1 F 90 20 144/54 94
07/15/25 21:00 07/15/25 21:00 07/15/25 21:00 07/15/25 21:00 07/15/25 21:00
Last Documented Vital Signs
Temp Pulse Resp BP Pulse Ox
98.1 F 90 20 144/54 94
07/15/25 21:00 07/15/25 21:00 07/15/25 21:00 07/15/25 21:00 07/15/25 21:00
*Pulse Oximetry
SaO2: 94
Oxygen Mode of Delivery: Room air
Patient hypoxic: no
*Critical Care Note
Total Time (30-74mins, 75-104mins- exclusive of procedures): Not Applicable
Update Note
Update Note:
Patient presents to the Emergency Department with rectal bleeding____
Number and Complexity of Problems Addressed at the Encounter
� Chronic conditions affecting care:
� Acute Exacerbation and/or Progression of Chronic Illness:
� Differential Diagnosis includes:but not limited to thrombosed hemorrhoid, bleeding hemorrhoid, anal fissure, etc etc
Amount and/or Complexity of Data to be Reviewed and Analyzed
� I performed an independent evaluation of and my interpretation is:
EKG:
CT:
Xrays:
Laboratory Studies:hgb stable, INR 2.04 mild prerenal azotemia, mild hyperglycemia
Other:
� Review of other/old records reveals:
� Clinical information was obtained by an independent historian:girlfriend at bedside
� Prescriptions/Medications Considered but not given:
� Further testing considered but not performed:
Risk of Complications and/or Morbidity or Mortality of Patient Management
� Social determinants of health affecting care:
� Discussion with other providers (PCP, Hospitalists, Consultants, etc):
� Escalation of care including admission/observation vs risk of discharge considered:Pt without further bleeding, vitals and labs stable. Advised pt re:hemorrhoid care (ex anusol supp, etc), import of f/u and raesons to rted,
instructions if bleeding resumes, etc.
ED Attending Note
-
Portions of this chart may have been created with voice recognition software.� Occasional wrong word or��sound alike� substitutions may have occurred due to the inherent limitations of voice recognition software.
Discharge Plan
Departure
Patient Disposition: Home (Routine Discharge)
Date of Disposition: 07/15/25
Time of Disposition: 22:49
Patient with high blood pressure during this ER visit?: Yes
Condition: Good
Discharge Problem:
Hemorrhoid
Instructions: BLOOD PRESSURE, Hemorrhoids (DC)
Prescriptions:
No Action
acetaminophen [Tylenol] 325 mg Tablet
650 mg PO PRN PRN (Reason: MILD PAIN)
aspirin 81 mg Tablet,Delayed Release (Dr/Ec)
81 mg PO DAILY
magnesium oxide 200 mg magnesium Tablet
200 mg PO DAILY
Novolin 70-30 FlexPen U-100 100 unit/mL (70-30) Insulin Pen
12 unit SC BID Qty: 5 3RF
Rx Instructions:
Take twice a day with breakfast and dinner
(DME) pen needle, diabetic [Radha 2nd Gen Pen Needle] 32 gauge x ' Needle
Qty: 200 0RF
Rx Instructions:
As Directed
warfarin [Jantoven] 5 mg Tablet
5 mg PO QPM Qty: 30 1RF
atorvastatin 40 mg Tablet
40 mg PO QPM Qty: 30 2RF
labetalol 100 mg Tablet
100 mg PO BID Qty: 60 1RF
lisinopril 5 mg Tablet
5 mg PO DAILY Qty: 30 1RF
hydrocortisone acetate [Anusol-HC] 25 mg suppository
25 mg WI BID Qty: 30 0RF
Activity Restrictions/Additional Instructions:
PLEASE CONTINUE YOUR MEDICATIONS DIRECTED. IF YOU DEVELOP RECURRENT/NEW BLEEDING, DIZZINESS, BLACK STOOLS, VOMITING, ABDOMINAL PAIN OR OTHER WORRISOME SIGNS, GO TO THE ER IMMEDIATELY!
Interventions
Interventions:
*Risk Screen - Suicide Last Done: 07/15/25 21:00
*General Assessment Last Done: 07/15/25 21:00
*Neglect/Abuse Screening Last Done: 07/15/25 21:00
Discharge Date and Time
Print Language: MONGOLIAN
== END 2025-07-15 23:08 | disposition home or self-care (01) ==
LOC: EMR 20:53
PROVIDERS: Emergency Medicine; EMERGENCY PHYSICIAN Emergency Medicine
DX: K64.4 Residual hemorrhoidal skin tags (principal); E11.65 Type 2 diabetes mellitus with hyperglycemia; I25.10 Atherosclerotic heart disease of native coronary artery without angina pectoris; I10 Essential (primary) hypertension; E78.00 Pure hypercholesterolemia, unspecified; I25.2 Old myocardial infarction; Z79.01 Long term (current) use of anticoagulants; Z79.4 Long term (current) use of insulin; Z79.82 Long term (current) use of aspirin; Z95.5 Presence of coronary angioplasty implant and graft; Z86.718 Personal history of other venous thrombosis and embolism; Z86.711 Personal history of pulmonary embolism
CPT/HCPCS: 99283; 80048; 85025; 85610

== ENCOUNTER 2025-07-28 11:08 | Outpatient (REF) | payer OTHER, SELFPAY | END 2025-07-28 23:59 | disposition home or self-care (01) | LOC: WOUND 11:08 | PROVIDERS: ATTENDING PHYSICIAN Registered Nurse | DX: E11.622 Type 2 diabetes mellitus with other skin ulcer (principal); L97.222 Non-pressure chronic ulcer of left calf with fat layer exposed; L97.822 Non-pressure chronic ulcer of other part of left lower leg with fat layer exposed; I82.502 Chronic embolism and thrombosis of unspecified deep veins of left lower extremity; I87.2 Venous insufficiency (chronic) (peripheral); I73.9 Peripheral vascular disease, unspecified; Z79.4 Long term (current) use of insulin; Z79.01 Long term (current) use of anticoagulants | CPT/HCPCS: 11042; 11045 ==

== ENCOUNTER 2025-08-11 09:33 | Outpatient (REF) | payer OTHER, SELFPAY | END 2025-08-11 23:59 | disposition home or self-care (01) | LOC: WOUND 09:33 | PROVIDERS: ATTENDING PHYSICIAN Registered Nurse | DX: E11.622 Type 2 diabetes mellitus with other skin ulcer (principal); L97.222 Non-pressure chronic ulcer of left calf with fat layer exposed; L97.822 Non-pressure chronic ulcer of other part of left lower leg with fat layer exposed; Z79.4 Long term (current) use of insulin; Z79.01 Long term (current) use of anticoagulants; I82.502 Chronic embolism and thrombosis of unspecified deep veins of left lower extremity; I87.2 Venous insufficiency (chronic) (peripheral); I73.9 Peripheral vascular disease, unspecified | CPT/HCPCS: 29580; 99213 ==

== ENCOUNTER 2025-08-17 09:34 | Outpatient (REF) | payer OTHER, SELFPAY | END 2025-08-17 23:59 | disposition home or self-care (01) | LOC: WOUND 09:34 | PROVIDERS: ATTENDING PHYSICIAN Registered Nurse | DX: E11.622 Type 2 diabetes mellitus with other skin ulcer (principal); L97.222 Non-pressure chronic ulcer of left calf with fat layer exposed; L97.822 Non-pressure chronic ulcer of other part of left lower leg with fat layer exposed; Z79.4 Long term (current) use of insulin; Z79.01 Long term (current) use of anticoagulants; I82.502 Chronic embolism and thrombosis of unspecified deep veins of left lower extremity | CPT/HCPCS: 29580; 99213 ==